=== PATIENT | male | born 1955 | race Caucasian/White ===

== ENCOUNTER 2024-01-29 10:16 | Day surgery (SDC) | payer OTHER, SELFPAY ==
[2024-01-29] VITALS (15 sets, daily range): BP systolic 149–179; BP diastolic 73–96; PULSE 71–107; RESP 16; TEMP 37–37.5; O2SAT 91–97; BMI 29.0
[2024-01-29] MEDS: Lactated Ringers 1,000 ML 15 ML IV (10:53)
[2024-01-29] MEDS: Cefazolin 2 GM in 0.9% Normal Saline (100mL Bag) 100 ML IV (11:27)
[2024-01-29] MEDS: Lidocaine 1%/Epi 1:200 (30ml) 30 ML AMPUL (12:40)
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
[2024-01-29] MEDS: Gabapentin 300 MG Capsule PO (16:10)
[2024-01-29] MEDS: oxyCODONE 5 MG Tablet PO (17:23)
[2024-01-29] MEDS: Acetaminophen 325 MG Tablet PO (17:23)
== END 2024-01-29 18:25 | disposition home or self-care (01) ==
LOC: SDC 10:19 → AC 10:20
PROVIDERS: PCP Internal Medicine; Referring Provider Student in an Organized Health Care Education/Training Program; Visit Provider Student in an Organized Health Care Education/Training Program
PROC: (CPT 27380; principal; 2024-01-29 11:30)
DX: S76.112D Strain of left quadriceps muscle, fascia and tendon, subsequent encounter (principal); I48.91 Unspecified atrial fibrillation; Z79.01 Long term (current) use of anticoagulants; E78.00 Pure hypercholesterolemia, unspecified; I10 Essential (primary) hypertension; G47.30 Sleep apnea, unspecified; M25.562 Pain in left knee; V98.8XXD Other specified transport accidents, subsequent encounter
CPT/HCPCS: 27380; 01320; J7120; J2405

== ENCOUNTER 2024-04-10 17:43 | Emergency (ER) | payer OTHER, SELFPAY ==
[2024-04-10 17:44] VITALS: BP 151/78; PULSE 78; RESP 16; TEMP 36; O2SAT 97; BMI 30.8
--- NOTE | 2024-04-10 18:20 | CT_ITS ---
INDICATION: Hematuria EXAMINATION: CT Abdomen And Pelvis W/O Contrast Injection TECHNIQUE: Helically acquired images were obtained of the abdomen and pelvis without the use of IV contrast. A radiation dose optimization technique was used for this scan. Oral contrast: None. COMPARISON: None FINDINGS: Evaluation of the solid organs and vascular structures is limited without intravenous contrast. Visualized lung bases: Unremarkable Liver: Unremarkable Gallbladder: Unremarkable Spleen: Unremarkable Pancreas: Unremarkable Adrenal Glands: Unremarkable Kidneys: There is an obstructing 6 mm stone in the right ureteropelvic junction with minimal right hydronephrosis. There are several other smaller nonobstructing stones in the right kidney. Vasculature: Mild scattered aortoiliac atherosclerotic calcifications. GI Tract: Unremarkable Lymphadenopathy: None Peritoneum: No ascites. Bladder: Unremarkable Reproductive organs: The prostate is mildly enlarged. Bones/Soft tissues: There are diffuse degenerative changes of the spine. Hardware in the right proximal femur. CT/Abdomen/Pelvis without Cont IMPRESSION: Obstructing 6 mm stone in the right ureteropelvic junction with minimal right hydronephrosis. There are several other smaller nonobstructing stones in the right kidney. Mild prostatomegaly. Correlate with PSA levels. Electronically Signed: Danish Blunt MD at 19:34 EDT ,
[2024-04-10 18:36] LABS: Mucous, Urine 0 SEEN /hpf (<or=2+); Squamous Epithelial Cells - UA 0 SEEN /hpf (0-5)
[2024-04-10 18:39] LABS: Color, Urine Brown (Yellow); Glucose, Dipstick Normal (Normal); Ketone-Dipstick 5 mg/dl (Negative); Leukocyte Esterase-Dipstick 25 /ul (Negative); Nitrite-Dipstick Negative (Negative); Occult Blood-Urine 250 /ul (Negative); Protein-Dipstick 500 mg/dl (Negative); Urine Bilirubin Dipstick Negative (Negative); Urine Clarity Turbid (Clear); Urine Urobilinogen Normal (Normal); Urine pH 6.5 (5.0 - 8.0)
[2024-04-10 18:39] LABS: Absolute Lymphocyte Count 1.31 X10^3/uL (0.83-4.51); Absolute Neutrophil Count 4.4 X10^3/uL (2.0-7.7); Basophil# 0.01 X10^3/uL; Basophil% 0.1 % (0-1); Eosinophil# 0.16 X10^3/uL; Eosinophils% 2.4 % (0-5); Hemoglobin 13.3 g/dL (13.0-16.5); Lymphocyte # 1.31 X10^3/ul (0.83-4.51); Lymphocyte % 19.5 % (19-41); Mean Corp Hgb Conc 34.1 g/dL (32-36); Mean Corpuscular Hgb 31.7 pg (27.0-32.0); Mean Corpuscular Volume 92.9 fL (80-94); Monocyte# 0.86 X10^3/uL; Monocyte% 12.8 % (0-10); NRBC Flagged by Analyzer 0 % (0-5); Neutrophil # 4.37 X10^3/uL (2.7-7.7); Neutrophil % 64.9 % (47-70); Platelet Count 185 K/mm3 (150-450); RBC Distribution Width CV 12.3 % (11.6-14.6); RBC Distribution Width SD 41.9 fl (35.1-43.9); White Blood Count 6.7 K/mm3 (4.4-11.0)
[2024-04-10 18:52] LABS: International Normalized Ratio 1.1; Prothrombin Time (Protime)PT. 13.9 SECONDS (11.7-14.9)
[2024-04-10 18:53] LABS: Partial Thromboplast Time 26.2 Seconds (24.1-36.2)
[2024-04-10 18:54] LABS: Bacteria 2+ /hpf (None Seen); Red Blood Cells-Urine 50-100 SEEN /hpf (0-5); White Blood Cells 10-25 SEEN /hpf (0-5)
[2024-04-10] MEDS: 0.9% Normal Saline (1000mL) 1,000 ML 999 ML IV (18:54)
[2024-04-10 19:05] LABS: AST(SGOT) 17 U/L (15-37); Alanine Aminotransfer ALT/SGPT 36 U/L (16-61); Albumin, Serum 3.5 g/dL (3.2-5.0); Alkaline Phosphatase 95 U/L (45-117); Anion Gap 4 (5-15); BUN 18 mg/dL (7-18); BUN/Creat Ratio 18.9 RATIO (10-20); Bilirubin, Direct 0.12 mg/dL (0.00-0.30); Calcium,Total 8.8 mg/dL (8.5-10.1); Chloride 109 mmol/L (98-107); Creatinine, Serum 0.95 mg/dL (0.70-1.30); EST Glomerular Filtration Rate 83 mL/min (>60); Est Glom Filt Rate - Afr Amer 101 mL/min (>60); Globulin 3.7 g/dL (2.2-4.2); Glucose 121 mg/dL (74-106); Potassium 3.7 mmol/L (3.5-5.1); Protein, Total 7.2 g/dL (6.4-8.2); Sodium Level 142 mmol/L (136-145)
--- NOTE | 2024-04-10 20:20 | EDS_ITS ---
HPI History of Present Illness Chief Complaint: Complaint Informant: patient and spouse/S.O. Narrative Narrative: Patient is 68-year-old male with past medical history of paroxysmal atrial fibrillation as well as hypertension currently on Eliquis. He states that over the last 24 hours he has noticed that his urine has looked like blood. He states there has been no dysuria no trauma he denies any abdominal pain or flank pain associated with this. He states he has no history of liver disease. However as this has been an acute change he presents for evaluation [facility] Medical History (Updated 04/13/24 @ 23:[address] Reese Silverman, DO) Alcohol use CPAP (continuous positive airway pressure) dependence Non-smoker Shortness of breath on exertion History of pain when walking History of edema History of echocardiogram History of stress test Hypertension Cardiology follow-up encounter Fractured sternum Hx of developmental dysplasia of the hip History of irregular heartbeat History of atrial fibrillation Home Medications ?Medication ?Instructions ?Recorded ?Last Taken ?Type apixaban 5 mg tablet (Eliquis) 5 mg PO BID 01/23/24 Unknown History aspirin 81 mg tablet,delayed 81 mg PO DAILY 01/23/24 Unknown History release atorvastatin 40 mg tablet 40 mg PO QHS 01/23/24 Unknown History losartan 50 mg tablet 50 mg PO QHS 01/23/24 Unknown History metoprolol succinate 25 mg 12.5 mg PO QHS 01/23/24 Unknown History tablet,extended release 24 hr cephalexin 500 mg capsule 500 mg PO TID 7 days #21 caps 04/10/24 Unknown Rx tamsulosin 0.4 mg capsule (Flomax) 0.4 mg PO DAILY 14 days #14 caps 04/10/24 Unknown Rx Allergy/AdvReac Type Severity Reaction Status Date / Time No Known Allergies Allergy Verified 01/23/24 13:52 Surgical History (Updated 01/23/24 @ 14:06 by Rhonda Coulter) History of tonsillectomy History of cardiac catheterization History of cardiac radiofrequency ablation Social History Smoking Status: Never smoker ROS ROS ED Constitutional Constitutional ED: Denies chills or fever(s) ENT ENT ED: Denies sore throat Cardiovascular Cardiovascular: Denies chest pain Respiratory/Chest Respiratory/Chest: Denies cough or dyspnea Gastrointestinal Gastrointestinal: Denies abdominal pain, diarrhea, nausea or vomiting Genitourinary Genitourinary ED: Reports hematuria; Denies dysuria or urinary frequency Musculoskeletal Musculoskeletal: Denies back pain or myalgias Integumentary Denies rash Neurologic Neurologic: Denies headache(s) Hematologic/Lymphatic Hematologic/Lymphatic: Reports easy bleeding and easy bruising EXAM Physical Exam Const Vital Signs: 04/10/24 17:44 Temperature 96.8 F L Temperature Source Temporal Pulse Rate 78 Respiratory Rate 16 Blood Pressure 151/78 H Blood Pressure Mean 102 Pulse Ox 97 Oxygen Delivery Method Room Air Positive well nourished, well developed and obese General Appearance ED: well developed; Negative for pallor Nutritional Appearance: obese HEENT Reports moist mucous membranes Eyes PERRL and EOMs intact bilaterally General Eye ED: Negative for pale conjunctiva or scleral icterus Neck supple Resp normal respiratory effort and clear to auscultation bilaterally Cardio regular rate and regular rhythm GI normal to inspection, nondistended, normoactive bowel sounds, non-tender, non- distended and no masses Auscultation: normoactive bowel sounds Palpation: soft Back/Spine no CVA tenderness Extremity normal to inspection Neuro oriented x3, CN's II-XII intact bilaterally and no sensory deficits noted Sensorium / Orientation: alert Motor Exam: strength 5/5 throughout Psych mental status grossly normal Skin no rashes or lesions noted General Skin Exam: Negative for jaundice or pallor MDM MDM MDM Narrative Medical decision making narrative: Patient arrived to ER mildly hypertensive otherwise with stable vitals. He denied dysuria or abdominal pain or flank pain but reported that his urine was dark/bloody in color. There is concern for spontaneous bleed secondary to Eliquis versus bladder cancer or mass versus kidney stone versus pyelonephritis versus UTI versus liver dysfunction. Secondary to his basic labs were obtained and a noncontrast CT was ordered. Labs revealed no signs of acute kidney injury or acute blood loss anemia and there is no derangement to his platelets or bleeding times. Liver enzymes were also normal. CT scan confirmed a kidney stone which would correlate with his hematuria. However at this time he does not have signs of acute kidney injury or urosepsis nor does he have acute blood loss anemia so there is no need for inpatient treatment and he can follow-up with urology on an outpatient basis History & Record Review Discussion w/independent historian: Patient and Significant other Lab Data Attestation: I reviewed the patient's lab results. Labs: Laboratory Results - last 24 hr 04/10/24 04/10/24 18:27 18:30 WBC 6.7 RBC 4.20 L Hgb 13.3 Hct 39.0 L MCV 92.9 MCH 31.7 MCHC 34.1 RDW Std Deviation 41.9 RDW Coeff of Javad 12.3 Plt Count 185 MPV 9.0 Immature Gran % (Auto) 0.300 Neut % (Auto) 64.9 Lymph % (Auto) 19.5 [place] % (Auto) 12.8 H Eos % (Auto) 2.4 Baso % (Auto) 0.1 Absolute Neuts (auto) 4.4 Absolute Lymphs (auto) 1.31 Nucleated RBC % 0 PT 13.9 INR 1.1 APTT 26.2 Sodium 142 Potassium 3.7 Chloride 109 H Carbon Dioxide 29.0 Anion Gap 4 L BUN 18 Creatinine 0.95 Estim Creat Clear Calc 92.40 Est GFR (MDRD) Af Amer 101 Est GFR (MDRD) Non-Af 83 BUN/Creatinine Ratio 18.9 Glucose 121 H Calcium 8.8 Total Bilirubin 0.40 Direct Bilirubin 0.12 AST 17 ALT 36 Alkaline Phosphatase 95 Total Protein 7.2 Albumin 3.5 Globulin 3.7 Urine Color Brown Urine Clarity Turbid Urine pH 6.5 Ur Specific [place] 1.020 Urine Protein 500 H Urine Glucose (UA) Normal Urine Ketones 5 H Urine Occult Blood 250 H Urine Nitrite Negative Urine Bilirubin Negative Urine Urobilinogen Normal Ur Leukocyte Esterase 25 H Urine RBC 50-100 SEEN Urine WBC 10-25 SEEN Ur Squamous Epith Cells 0 SEEN Urine Bacteria 2+ Urine Mucus 0 SEEN Radiography Diagnostic Testing: Clinical Impression(s) from Imaging Studies Abdomen/Pelvis CT 04/10/24 18:20 IMPRESSION: Obstructing 6 mm stone in the right ureteropelvic junction with minimal right hydronephrosis. There are several other smaller nonobstructing stones in the right kidney. Mild prostatomegaly. Correlate with PSA levels. 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, Paroxysmal atrial fibrillation, Hypertension Instructions: ED Hematuria, ED Kidney Stone No Sx Prescriptions: New cephalexin 500 mg capsule 500 mg PO TID 7 Days Qty: 21 0RF tamsulosin [Flomax] 0.4 mg capsule 0.4 mg PO DAILY 14 Days Qty: 14 0RF No Action losartan 50 mg tablet 50 mg PO QHS atorvastatin 40 mg tablet 40 mg PO QHS Eliquis 5 mg tablet 5 mg PO BID metoprolol succinate 25 mg tablet extended release 24 hr 12.5 mg PO QHS aspirin 81 mg tablet,delayed release (DR/EC) 81 mg PO DAILY Primary Care Provider: Orly Cardenas Referrals: Orly Cardenas MD [Primary Care Provider] - Miguel Garcia MD [Med Staff - Active Staff] - Activity Restrictions/Additional Instructions: Your workup today showed the blood in your urine is from a kidney stone. Follow-up with urology to discuss need for potential stent placement or further treatment options regarding removal of the stone. If you develop a fever over 100.4 or intractable pain please return to the ER for repeat evaluation Print Language: Swiss Disposition Disposition: Home, Self Care Discharge Date/Time: 04/10/24 20:55
[2024-04-10] MEDS: Cephalexin 250 MG Capsule 500 MG PO (20:34)
[2024-04-10 20:54] VITALS: BP 128/76; PULSE 75; RESP 18; TEMP 36.8; O2SAT 96
== END 2024-04-10 20:55 | disposition home or self-care (01) ==
PROVIDERS: Emergency Provider Emergency Medicine; PCP Internal Medicine; Visit Provider Emergency Medicine
DX: N13.2 Hydronephrosis with renal and ureteral calculous obstruction (principal); I48.0 Paroxysmal atrial fibrillation; R31.9 Hematuria, unspecified; I10 Essential (primary) hypertension; Z79.01 Long term (current) use of anticoagulants; Z79.82 Long term (current) use of aspirin; Z79.899 Other long term (current) drug therapy
CPT/HCPCS: 74176; 80048; 80076; 81001; 85025; 85610; 85730; 87086; 99283; J7030

== ENCOUNTER → 2024-04-22 | Outpatient (CLI) | payer OTHER, SELFPAY ==
[2024-04-22 12:18] LABS: Hematocrit 39.2 % (40-54); Hemoglobin 12.9 g/dL (13.0-16.5); Mean Corp Hgb Conc 32.9 g/dL (32-36); Mean Corpuscular Hgb 30.8 pg (27.0-32.0); Mean Corpuscular Volume 93.6 fL (80-94); Mean Platelet Vol. 9.1 fl (6.2-12.0); Platelet Count 223 K/mm3 (150-450); RBC Distribution Width CV 12.5 % (11.6-14.6); RBC Distribution Width SD 42.8 fl (35.1-43.9); Red Blood Count 4.19 M/mm3 (4.6-6.2)
[2024-04-22 13:00] LABS: Anion Gap 7 (5-15); BUN 19 mg/dL (7-18); BUN/Creat Ratio 13.3 RATIO (10-20); Calcium,Total 9.2 mg/dL (8.5-10.1); Chloride 105 mmol/L (98-107); Creatinine, Serum 1.43 mg/dL (0.70-1.30); EST Glomerular Filtration Rate 52 mL/min (>60); Est Glom Filt Rate - Afr Amer 63 mL/min (>60); Glucose 107 mg/dL (74-106); Potassium 4.1 mmol/L (3.5-5.1); Sodium Level 137 mmol/L (136-145)
== END | disposition home or self-care (01) ==
PROVIDERS: PCP Internal Medicine; Referring Provider Urology; Visit Provider Urology
DX: Z01.812 Encounter for preprocedural laboratory examination (principal)
CPT/HCPCS: 36415; 80048; 85027

== ENCOUNTER → 2024-05-03 | Outpatient (CLI) | payer OTHER, SELFPAY ==
--- NOTE | 2024-04-30 | CALC_PTH ---
PATIENT: RUDDY RICH [facility] U#:[id number] AGE/SX: 68/M ROOM: RE05/03/[address]: Dr. Miguel Garcia MD : 1955 BED: DIS: 05/03/2024 SPEC #: [id number] RECD: 05/03/24 14:59 STATUS: MANUEL BELTRAN #: [id number] YVROSE: 04/30/24 00:[address]: Miguel Garcia DEPT: SURGICAL PATHOLOGY RECD BY: Wilian Torres ENTERED: 05/04/24 09:53 SP TYPE: Calculi OTHR DR: Dr. Orly Cardenas MD [facility] Tissues: CALCULI Procedures: Surgery Specimen Level I HEADER OPERATION: Right ureteroscopy, balloon dilation, laser stone PRE-OP DIAGNOSIS: Calculus of ureter TISSUE SUBMITTED: Renal calculi GROSS DIAGNOSIS A fragment of stone, clinically renal calculus (gross only). See comment. [place]/ 05/04/2024 COMMENT If chemical analysis is requested on this specimen, please notify the laboratory. GROSS DESCRIPTION Received without fixative labeled with the patient's name and designated renal calculi. The specimen consists of a minute fragment of black stone measuring 0.1 x 0.1 x 0.1 cm. The entire specimen is saved if stone analysis is requested. 05/04/2024 CPT: 13444
== END | disposition home or self-care (01) ==
LOC: LABSPEC 16:19
PROVIDERS: PCP Internal Medicine; Referring Provider Urology; Visit Provider Urology
DX: N20.1 Calculus of ureter (principal)
CPT/HCPCS: 82360; 88300

== ENCOUNTER → 2024-12-17 | Outpatient (CLI) | payer MEDICARE, SELFPAY ==
[2024-12-17 12:43] LABS: Absolute Lymphocyte Count 1.84 X10^3/uL (0.83-4.51); Absolute Neutrophil Count 6.1 X10^3/uL (2.0-7.7); Basophil# 0.04 X10^3/uL; Basophil% 0.4 % (0-1); Eosinophil# 0.16 X10^3/uL; Eosinophils% 1.8 % (0-5); Hematocrit 44.6 % (40-54); Hemoglobin 14.6 g/dL (13.0-16.5); Lymphocyte # 1.84 X10^3/ul (0.83-4.51); Lymphocyte % 20.5 % (19-41); Mean Corp Hgb Conc 32.7 g/dL (32-36); Mean Corpuscular Hgb 32.2 pg (27.0-32.0); Mean Corpuscular Volume 98.2 fL (80-94); Mean Platelet Vol. 9.7 fl (6.2-12.0); Monocyte# 0.86 X10^3/uL; Monocyte% 9.6 % (0-10); NRBC Flagged by Analyzer 0 % (0-5); Neutrophil # 6.05 X10^3/uL (2.7-7.7); Neutrophil % 67.3 % (47-70); Platelet Count 208 K/mm3 (150-450); RBC Distribution Width CV 12.5 % (11.6-14.6); RBC Distribution Width SD 45.2 fl (35.1-43.9); Red Blood Count 4.54 M/mm3 (4.6-6.2)
[2024-12-17 13:24] LABS: ALB/GLOB Ratio 1.2 RATIO (0.9-2.4); AST(SGOT) 15 U/L (<=37); Alanine Aminotransfer ALT/SGPT 24 U/L (<=46); Albumin, Serum 4.3 g/dL (3.4-4.8); Alkaline Phosphatase 71 U/L (40-129); Anion Gap 12 (5-15); BUN 26 mg/dL (4-19); BUN/Creat Ratio 25.5 RATIO (10-20); Calcium,Total 9.6 mg/dL (7.6-11.0); Carbon Dioxide 24.4 mmol/L (21.0-32.0); Chloride 104 mmol/L (98-108); Creatinine, Serum 1.02 mg/dL (0.70-1.20); EST Glomerular Filtration Rate 80 (>60); Globulin 3.5 g/dL (2.2-4.2); Glucose 98 mg/dL (70-99); Potassium 4.5 mmol/L (3.3-5.1); Protein, Total 7.7 g/dL (5.9-8.4); Sodium Level 141 mmol/L (133-145); Total Bilirubin 0.56 mg/dL (0.00-1.30)
== END | disposition home or self-care (01) ==
LOC: MTLAB 11:00
PROVIDERS: PCP Internal Medicine; Referring Provider Student in an Organized Health Care Education/Training Program; Visit Provider Student in an Organized Health Care Education/Training Program
DX: Z01.818 Encounter for other preprocedural examination (principal)
CPT/HCPCS: 36415; 80053; 85025

== ENCOUNTER 2025-05-30 05:20 | Day surgery (SDC) | payer MEDICARE, SELFPAY ==
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
[2025-05-30] VITALS (11 sets, daily range): BP systolic 123–139; BP diastolic 55–81; PULSE 67–80; RESP 16–18; TEMP 36.1–36.7; O2SAT 98–100; BMI 30.7
--- OUTSIDE RECORDS SUMMARY | 2025-05-30 05:24 | XMS RPT_ITS | CCD ---
Author Organization [facility] Care Team Providers Care Informatics Nurse Name Role Phone RONALD HURTADO, DR RENDON Primary Care Physician Mello Rounding Nurse, Terry Unavailable Adrienne JOHNSON MD, MIKY Consulting Unavailable DALIA HORVATH MD Referring Unavailvon CARDENAS MD, DR RENDON Primary Care Unavailable TRACI HURTADO, TAYE Attending Unavailable RONALD HURTADO, DR RENDON Primary Care Unavailable SREEDHAR MARQUEZ MD Consulting Unavailvon SINGH MD, FREDA Admitting Unavailable FREDA SINGH MD Attending Unavailable YAMINI HURTADO, FREDA Consulting Unavailable RONALD HURTADO, DR RENDON Primary Care Unavailable YAMINI HURTADO, FREDA Attending Unavailable STEVE RAYA Referring Unavailable RONALD HURTADO, DR RENDON Primary Care Unavailable FREDA SINGH MD Attending Unavailable RONALD HURTADO, DR RENDON Primary Care Unavailable DIANNE HUGHES Admitting Unavailable DIANNE HUGHES Attending Bubba RANDLE MD, DR ALEX Keys Consulting Unavail able Ronald HURTADO, Dr. Rendon Primary Care Provider Dr. Robin Barrett DO Attending Provider Dr. Robin Barrett DO Referring Provider STEVE ROMERO Referring Unavail able FREDA SINGH MD Admitting Unavailable FREDA SINGH MD Attending Unavailable RONALD HURTADO, DR RENDON Primary Care Unavailable FREDA SINGH MD Attending Unavailable RONALD HURTADO, DR RENDON Primary Care Unavailable ANASTASIA RICHMOND DO Consulting Unavailable FREDA SINGH MD Admitting Unavailable FREDA SINGH MD Attending Unavailable RONALD HURTADO, DR RENDON Primary Care Unavailable STEVE ROMERO Attending Unavail able RONALD HURTADO, DR RENDON Primary Care Unavailable STEVE RAYA Primary Care Unavailable STEVE RAYA Attending Unavailable STEVE RAYA Admitting Unavailable JUSTICE CARDENAS MD Consulting Unavailable ROBIN BARRETT DO Primary Care Unavailable ROBIN BARRETT DO Attending Unavailable ROBIN BARRETT DO Admitting Unavailable PROVIDER, UNKNOWN Consulting Unavailable PROVIDER, UNKNOWN Consulting Unavailable PROVIDER, UNKNOWN Consulting Unavailable ROBIN BARRETT DO Primary Care Unavailable ROBIN BARRETT DO Attending Unavailable ROBIN BARRETT DO Admitting Unavailable JUSTICE CARDENAS MD Consulting Unavailable DENVER, JOHN PAC Admitting Unavailable DENVER, JOHN PAC Primary Care Unavailable DENVER, JOHN PAC Attending Unavailable PROVIDER, UNKNOWN Consulting Unavailable PROVIDER, UNKNOWN Consulting Unavailable PROVIDER, UNKNOWN Consulting Unavailable CRYSTAL ANGLIN Admitting Unavailable CRYSTAL ANGLIN Primary Care Unavailable CRYSTAL ANGLIN Attending Unavailable STEVE RAYA Attending Unavailable STEVE RAYA Admitting Unavailable STEVE RAYA Primary Care Unavailable ROBIN BARRETT DO Attending Unavailable ROBIN BARRETT DO Admitting Unavailable ROBIN BARRETT DO Primary Care Unavailable ELIDA CELESTE DR Admitting Unavailable ELIDA CELESTE DR Primary Care Unavailable ELIDA CELESTE DR Attending Unavailable JUSTICE CARDENAS MD Consulting Unavailable PROVIDER, UNKNOWN Consulting Unavailable PROVIDER, UNKNOWN Consulting Unavailable PROVIDER, UNKNOWN Consulting Unavailable CHU INFANTE%C Attending Unavailable CHU INFANTE PA%C Admitting Unavailable CHU INFANTE%C Primary Care Unavailable JUSTICE CARDENAS MD Admitting Unavailable JUSTICE CARDENAS MD Primary Care Unavailable JUSTICE CARDENAS MD Consulting Unavailable JUSTICE CARDENAS MD Attending Unavailable PROVIDER, UNKNOWN Consulting Unavailable PROVIDER, UNKNOWN Consulting Unavailable PROVIDER, UNKNOWN Consulting Unavailable KANCHERLA Admitting Unavailable KANCHERELROY Primary Care Unavailable DRAGAN Attending Unavailable DRAGAN Referring Unavailable ROBIN BARRETT DO Attending Unavailable ROBIN BARRETT DO Admitting Unavailable ROBIN BARRETT DO Primary Care Unavailable Robin Barrett Referring Unavailable Justice Cardenas Primary Care Unavailable Robin Barrett Attending Unavailable Zeenat Lucas Primary Care Unavailable Robin Barrett Attending Unavailable Robin Barrett Referring Unavailable Medications Current Medications Medication Drug Class(es) Dates Sig (Normalized) Sig (Original) 8 hr acetaminophen 650 mg extended release oral tablet (5 sources) Start: 05-11-2024 Tylenol 8 HR Arthritis Pain 650 mg oral tablet, extended release Dose : 1,300 mg = 2 tab(s), Oral, q8h, PRN as needed for pain, 0 Refill(s) Start Date: 05/11/24 Status: Ordered Repeat number: 1 apixaban 5 mg oral tablet (8 sources) Factor Xa Inhibitor Start: 02-14-2025 Eliquis 5 mg oral tablet Dose : 5 mg = 1 tab(s), Oral, q12h, # 60 tab(s), 0 Refill(s), other reason (Rx), 99.4 Start Date: 02/14/25 Status: Ordered Quantity: 60.0 Unit: tab(s) Repeat number: 1 Indications: Unspecified atrial fibrillation; Start: 05-02-2023 Eliquis 5 mg o ral tablet Dose : 5 mg = 1 tab(s), Oral, BID, # 180 tab(s), 3 Refill(s), Pharmacy: [facility], 180.3, cm, 05/18/24 5:59:00 EDT, Height, 99.8, kg, 05/18/24 5:59:00 EDT, Dosing Weight Start Date: 06/09/24 Status: Ordered aspirin 81 mg delayed release oral tablet (8 sources) Platelet Aggregation Inhibitor, Nonsteroidal Anti-inflammatory Drug Start: 01-20-2025 aspirin 81 mg ora l delayed release tablet Dose : 81 mg = 1 tab(s), Oral, qHS, 0 Refill(s) Start Date: 01/20/25 Status: Ordered Repeat number: 1 Start: 11-26-2023 take 1 tablet by maura once daily Aspirin 81 mg tablet,delayed release (DR/EC) Active 81 mg PO DAILY January 23, 2024 12:00am Start: 10-06-2023 aspirin 81 mg oral delayed release tablet Dose : 81 mg = 1 tab(s), Oral, Daily, 0 Refill(s) Start Date: 10/06/23 Status: Ordered atorvastatin 40 mg oral tablet (9 sources) HMG-CoA Reductase Inhibitor Start: 08-26-2023 atorvastatin 40 mg oral tablet Dose : 40 mg = 1 tab(s), Oral, qHS, # 90 tab(s), 3 Refill(s), Pharmacy: [facility], 180.3, cm, 05/18/24 5:59:00 EDT, Height, kg, 05/18/24 5:59:00 EDT, Dosing Weight Start Date: 06/07/24 Status: Ordered Quantity: 90.0 Unit: tab(s) Repeat number: 4 cephalexin 500 mg oral capsule (1 source) Cephalosporin Antibacterial Start: 04-10-2024 take 1 capsule by mouth three times daily Cephalexin 500 mg capsule Active 500 mg PO THREE TIMES A DAY 28 03April 10, 2024 12:00am losartan potassium 50 mg oral tablet (9 sources) Angiotensin 2 Receptor Chela Start: 10-07-2023 take 1 tablet by mouth once daily at bedtime losartan 50 mg oral tablet 1 tab(s), Oral, qHS, # 90 tab(s), 2 Refill(s), Pharmacy: [facility], 182.9, cm, 07/08/24 13:09:00 EDT, Height, kg, 07/08/24 13:09:00 EDT, Dosing Weight Start Date: 10/08/24 Status: Ordered Quantity: 90.0 Unit: tab(s) Repeat number: 3 Start: 07-29-2022 take 1 tablet by maura th once daily losartan 50 mg oral tablet 1 tab(s), Oral, qDay, # 90 tab(s), 3 Refill(s), Pharmacy: [facility], 182, cm, 03/01/22 15:19:00 EDT, Height, kg, 03/01/22 15:19:00 EDT, Dosing Weight Start Date: 07/29/22 Status: Ordered 24 hr metoprolol succinate 25 mg extended release oral tablet (12 sources) beta-Adrenergic Chela Start: 01-26-2025 metopr olol succinate 25 mg oral TABLET extended release Dose : 25 mg = 1 tab(s), Oral, qDay, Do not crush or chew (controlled release), # 90 tab(s), 2 Refill(s), Pharmacy: [facility], 177.8, cm, 01/20/25 10:19:00 EDT, Height, kg, 01/20/25 10:19:00 EDT, Dosing Weight Start Date: 01/26/25 Status: Ordered Quantity: 90.0 Unit: tab(s) Repeat number: 3 Start: 05-18-2024 End: 05-18-2024 metoprolol succinate 25 mg o ral TABLET extended release Start: 05/18/24 10:00:00 PM EDT, Dose = 12.5 mg, = 0.5 tab(s), Oral, 05/18/24 7:25:00 EDT Start Date: 05/18/24 Stop Date: 05/18/24 Status: Completed Start: 01-23-2024 take 2 tablets by cox monett every twenty-four hours at bedtime Metoprolol Succinate 25 mg tablet extended release 24 hr Active 12.5 mg PO AT BEDTIME January 23, 2024 12:00am Start: 01-14-2024 End: 01-15-2024 metoprolol succinate 25 mg o ral TABLET extended release Start: 01/15/24 8:00:00 AM EDT, Dose = 12.5 mg, = 0.5 tab(s), Oral, 0, 01/14/24 9:49:00 EDT Start Date: 01/15/24 Stop Date: 01/15/24 Status: Completed Start: 12-18-2023 metoprolol suc cinate 25 mg oral TABLET extended release Dose : 12.5 mg = 0.5 tab(s), Oral, qHS, Do not crush or chew (controlled release), # 15 tab(s), 5 Refill(s), Pharmacy: [facility], 182.9, cm, 11/14/23 17:44:00 EST, Height, kg, 11/14/23 17:44:00 EST, Dosing Weight Start Date: 12/18/23 Status: Ordered Start: 11-15-2023 End: 11-15-2023 metoprolol succinate 25 mg o ral TABLET extended release Start: 11/15/23 8:00:00 AM EST, Dose = 12.5 mg, = 0.5 tab(s), Oral, 0, 11/14/23 11:40:00 EST Start Date: 11/15/23 Stop Date: 11/15/23 Status: Completed Start: 07-14-2023 metoprolol suc cinate 25 mg oral TABLET extended release Dose : 12.5 mg = 0.5 tab(s), Oral, qDay, Do not crush or chew (controlled release), # 45 tab(s), 1 Refill(s), Pharmacy: [facility], 182, cm, 02/28/23 14:27:00 EDT, Height, kg, 02/28/23 14:27:00 EDT, Dosing Weight Start Date: 07/14/23 Status: Ordered montelukast 10 mg oral tablet (2 sources) Leukotriene Receptor Antagonist Start: 01-20-2025 montelukast 10 mg oral tablet Dose : 10 mg = 1 tab(s), Oral, qHS, 0 Refill(s) Start Date: 01/20/25 Status: Ordered Repeat number: 1 tamsulosin hydrochloride 0.4 mg oral capsule (1 source) alpha-Adrenergic Chela Start: 04-10-2024 take 1 capsule by mouth once daily Tamsulosin (Flomax) 0.4 mg capsule Active 0.4 mg PO DAILY April 10, 2024 12:00am Vitamin C 1000 mg oral tablet (3 sources) Start: 05-11-2024 Vitamin C 1000 mg oral tablet Dose : 1,000 mg = 1 tab(s), Oral, qAM, # 30 tab(s), 0 Refill(s) Start Date: 05/11/24 Status: Ordered Vitamin C 500 mg oral tablet (1 source) Start: 01-13-2024 Vitamin C 500 mg oral tablet Dose : 500 mg = 1 tab(s), Oral, qDay Start Date: 01/13/24 Status: Ordered Vitamin D3 25 mcg (1000 intl units) oral capsule (4 sources) Start: 01-13-2024 Vitamin D3 25 mcg (1000 intl units) oral capsule Dose : 25 mcg = 1 cap(s), Oral, qAM Start Date: 01/13/24 Status: Ordered Start: 01-13-2024 Vitamin D3 25 mcg (1000 intl units) oral capsule Dose : 25 mcg = 1 cap(s), Oral, qDay Start Date: 01/13/24 Status: Ordered Completed/Discontinued Medications Medication Drug Class(es) Dates Sig (Normalized) Sig (Original) oxyCODONE hydrochloride 5 mg oral tablet (2 sources) Opioid Agonist Start: 01-29-2024 End: 04-10-2024 take 1-2 tablets by mouth every six hours as needed for pain Oxycodone 5 mg tablet Discontinued 0 .ROUTE .COMPLEX as needed for pain 42 7 January 29, 2024 April 10, 2024 6:55pm 1-2 Tablet by mouth every 6 hours as needed for pain Start: 01-15-2024 End: 01-18-2024 oxyCODONE 5 mg oral tablet ( IMMEDIATE release ) Dose : 5 mg = 1 tab(s), Oral, q6h, PRN for pain, X 3 day(s), # 12 tab(s), 0 Refill(s), 01/18/24 8:44:00 AM EDT, Pharmacy: [facility], Acute pain, 182.9, cm, 01/13/24 21:21:00 EDT, Height, 100, kg, 01/13/24 21:21:00 EDT, Dosing Weight Start Date: 01/15/24 Stop Date: 01/18/24 Status: Ordered Problems Active Problems Problem Classification Problem Date Documented Date Episodic/Chronic Calculus of urinary tract (1 source) Kidney stone; Translations: [Calculus of kidney] 04-18-2024 Episodic Cardiac dysrhythmias (18 sources) Atrial fibrillation; Translations: [Multiple premature ventricular complexes] Onset: 05-15-2024 10-26-2019 Chronic Comment on above: had an ablation 2020 Cardiac dysrhythmias (17 sources) Bradycardia; Translations: [Palpitations] 05-10-2021 Episodic Coagulation and hemorrhagic disorders (4 sources) Bleeds easily 05-15-2024 Chronic Disorders of lipid metabolism (3 sources) Dyslipidemia; Translations: [Pure hypercholesterolemia, unspecified] Onset: 12-30-2024 01-05-2025 Chronic Essential hypertension (12 sources) Hypertensive disorder; Translations: [Essential hypertension] Onset: 05-15-2024 06-12-2020 Chronic Fracture of lower limb (1 source) Closed fracture of left patella; Translations: [Unspecified fracture of left patella, initial encounter for closed fracture] Episodic Genitourinary symptoms and ill-defined conditions (1 source) Blood in urine; Translations: [Hematuria, unspecified] 04-18-2024 Episodic Nutritional deficiencies (1 source) Vitamin D deficiency, unspecified; Translations: [Vitamin D deficiency, unspecified] Onset: 12-30-2024 Chronic Osteoarthritis (3 sources) Primary osteoarthritis, left shoulder; Translations: [Primary osteoarthritis, left shoulder] Onset: 04-29-2025 Chronic Other aftercare (1 source) Long-term current use of anticoagulant; Translations: [nursing home (current) use of anticoagulants] 04-18-2024 Episodic Other circulatory disease (1 source) H/O: artificial organ/tissue; Translations: [Presence of other cardiac implants and grafts] Onset: 05-19-2024 Chronic Other fractures (1 source) Closed fracture of sternum; Translations: [Unspecified fracture of sternum, initial encounter for closed fracture] Episodic Other nervous system disorders (1 source) Acute postoperative pain; Translations: [Other acute postprocedural pain] 01-29-2024 Episodic Other non-traumatic joint disorders (3 sources) Ankylosis, left knee; Translations: [Ankylosis, left knee] Onset: 01-03-2025 Chronic Other non-traumatic joint disorders (1 source) Pain in left shoulder; Translations: [Pain in left shoulder] Onset: 04-29-2025 Episodic Other nutritional; endocrine; and metabolic disorders (1 source) Lipoprotein deficiency; Translations: [Lipoprotein deficiency] Onset: 05-24-2025 Chronic Residual codes; unclassified (10 sources) Obstructive sleep apnea syndrome; Translations: [Obstructive sleep apnea (adult) (pediatric)] Onset: 05-15-2024 03-07-2020 Chronic Residual codes; unclassified (1 source) Pain; Translations: [Pain, unspecified] Onset: 01-15-2024 Episodic Sprains and strains (5 sources) Strain of muscle and/or tendon of lower leg; Translations: [Strain of unspecified muscle(s) and tendon(s) at lower leg level, left leg, initial encounter] Onset: 01-03-2025 Episodic Superficial injury; contusion (1 source) Contusion of left shoulder, initial encounter; Translations: [Contusion of left shoulder, initial encounter] Onset: 03-23-2025 Episodic Unclassified (4 sources) Left atrial appendage occlusion device in situ 05-19-2024 Past or Other Problems Problem Classification Problem Date Documented Da te Episodic/Chronic Coagulation and hemorrhagic disorders (1 source) Disorder of hemostatic system; Translations: [Hemorrhagic condition, unspecified] Onset: 05-15-2024 Episodic Results Test Name Value Interpretation Reference Range Facility /[place] 05-05-2025 MR/PAT.[facility] Medical Records Department [address] [place] [address] PAT - Anesthesia 05/05/252004 MR#: [id number] Acct: [id number] Name: RUDDY RICH Rep #: [id number] : [id number] 69 From: Poncho Woodruff MD PCP: Dr. 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 When Was Last Pacemaker Check QUESTION #4 FULL TEXT: You/Your Family Experience fever (hyperthermia) with Anesthesia Last Oral Intake Last Oral intake: Last Oral Intake NPO since Meds taken in AM with sips of water? Meds patient instructed to take am of surgery PONV PONV - liturgical music director: PONV - liturgical music director Female No 05/03/25 09:39 HX of Motion Sickness No 05/03/25 09:39 HX of N/V After Surgery No 05/03/25 09:39 Non-Smoker Yes 05/03/25 09:39 Duration of Surgery greater Yes 05/03/25 09:39 than 60 minutes Number of Risk Factors 2 05/03/25 09:39 PONV Score Moderate Risk 05/03/25 09:39 Height Weight Height Weight: Anesthesia: Height Weight Height 6 ft 04/10/24 17:44 Respiratory Assessment Respiratory Assessment - liturgical music director: Respiratory Tract Infection Hx - liturgical music director Hx Respiratory Tract Infection No 05/03/25 09:39 STOP Sleep Apnea STOP Sleep Apnea - liturgical music director: STOP Sleep Apnea - liturgical music director Hx Hypertension Yes: CONTROLLED WITH MEDS 05/03/25 09:39 Hx Sleep Apnea Yes 05/03/25 09:39 CPAP Yes 05/03/25 09:39 BIPAP No 05/03/25 09:39 Do you snore loudly (louder than talking or can be heard Do you often feel tired/ fatigued/ sleepy during daytime? Has anyone observed you stop breathing during sleep? STOP Results Positive 05/03/25 09:39 QUESTION #5 FULL TEXT : Do you snore loudly (louder than talking or can be heard through closed doors)? 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 Specify any problems Hx of Preganancy in last 3 N/A 05/03/25 09:39 Months Nurse Filling Out Transfusion VCHRISTIN 05/03/25 09:39 Questions: Date: 05/03/25 05/03/25 09:39 Time: 09:40 05/03/25 09:39 Patient unable to answer at this time (ie. confused, unrespo /Reproducti on History /Reproducti ve History - liturgical music director: /Reproducti ve Hx- liturgical music director Hx Now No 05/03/25 09:39 Gestational Age (in weeks): EDC: Hx Hx Para Hx Section SAB No 05/03/25 09:39 [facility] Medical History (Updated 05/03/25 @ 10:06 by Leesa Kraft) Alcohol use CPAP (continuous positive airway pressure) dependence Non-smoker Shortness of breath on exertion History of pain when walking History of edema History of echocardiogram History of stress test Hypertension Cardiology follow-up encounter Fractured sternum Hx of developmental dysplasia of the hip History of irregular heartbeat History of atrial fibrillation Home Medications ???Medication ???Instructions ???Recorded ???Last Taken ???Type aspirin 81 mg tablet,delayed 81 mg PO DAILY 01/23/24 Unknown Hi story release atorvastatin 40 mg tablet 40 mg PO QHS 01/23/24 Unknown Hist ory losartan 50 mg tablet 50 mg PO DAILY 01/23/24 Unknown Hi story Allergy/AdvReac Type Severity Reaction Status Date / Time No Known Allergies Allergy Verified 05/03/25 09:19 Surgical History (Updated 05/03/25 @ 10:06 by Shirlene (more content not included)... Normal [facility] ALBUMIN PLASMAon 04-29-2025 Albumin [Mass/Vol] 3.9 g/dL Normal 3.4 - 5.0 [facility] Comment on above: Performed By: #### 2 [id number] #### [facility],[address] [place] [address] 60974 BMP with eGFRon 04-29-2025 AGE 69 years Normal [facility] Comment on above: Performed By: #### 2 [id number] #### [facility],[address] [place], [place] [id number] Anion gap [Moles/Vol] 11 mmol/L Normal 10 - 20 [facility] Comment on above: Performed By: #### 2 [id number] #### [facility],[address] [place] [address] [id number] BMP with eGFR Normal [facility] Comment on above: Result Comment: BASI C METABOLIC PANEL Performed By: #### 2 [id number] #### [facility],[address] [place] [address] 06742 Calcium [Mass/Vol] 8.8 mg/dL Normal 8.5 - 10.1 [facility] Comment on above: Performed By: #### 2 [id number] #### [facility],[address] [place] [address] 91416 Chloride [Moles/Vol] 101 mmol/L Normal 98 - 107 [facility] Comment on above: Performed By: #### 2 [id number] #### [facility],[address] [place] [address] 06748 CO2 [Moles/Vol] 30.3 mmol/L Normal 21.0 - 32.0 [facility] Comment on above: Performed By: #### 2 73221 #### [facility],[address] [place] [address] Creatinine [Mass/Vol] 1.06 mg/dL Normal 0.70 - 1.30 [facility] Comment on above: Performed By: #### 2 10948 #### [facility],[address] [place], [place] [address] GFR/1.73 sq M.predicted among non-blacks MDRD (S/P/Bld) [Vol rate/Area] mL/min/{1.73_m2} Normal 60 - 999 [facility] Comment on above: Performed By: #### 2 92833 #### [facility],[address] [place] [address] Result Comment: ACCO RDING TO THE NATIONAL KIDNEY DISEASE EDUCATION PROGRAM(NKDE), A NORMAL eGFR IS A VALUE GREATER THAN OR EQUAL TO 60 ML/MIN/1.73 SQ METERS. CHRONIC KIDNEY DISEASE: <60mL/MIN/1.73 SQ METERS KIDNEY FAILURE: <15mL/MIN/1.73 SQ METERS THIS TEST SHOULD ONLY BE USED FOR PATIENTS 18 YEARS OF AGE AND OLDER. Glucose [Mass/Vol] 102 mg/dL Normal 74 - 106 [facility] Comment on above: Performed By: #### 2 98094 #### [facility],[address] [place], [place] [id number] Potassium [Moles/Vol] 4.1 mmol/L Normal 3.5 - 5.1 [facility] Comment on above: Performed By: #### 2 76843 #### [facility],[address] [place] [address] 59320 Sodium [Moles/Vol] 138 mmol/L Normal 136 - 145 [facility] Comment on above: Performed By: #### 2 [id number] #### [place] [id number] Urea nitrogen [Mass/Vol] 14 mg/dL Normal 7 - 18 [facility] Comment on above: Performed By: #### 2 78857 #### [facility],[address] [place] [address] 08470 CBC + DIFFon 04-29-2025 Baso # 0.02 x10EE3/UL Normal 0.00 - 0.10 [facility] Comment on above: Performed By: #### 2 41136 #### [facility],[address] [place], [place] [id number] Basophils/100 WBC (Bld) 0.3 % Normal 0.0 - 2.0 [facility] Comment on above: Performed By: #### 2 84761 #### [facility],[address] [place] [address] CBC + DIFF Normal [facility] Comment on above: Result Comment: CBC- COMPLETE BLOOD COUNT Performed By: #### 2 28619 #### [facility],[address] [place] [address] EO # 0.16 x10EE3/UL Normal 0.00 - 0.50 [facility] Comment on above: Performed By: #### 2 44720 #### [facility],[address] [place] [address] 20108 Eosinophils/100 WBC (Bld) 2.4 % Normal 0.0 - 7.0 [facility] Comment on above: Performed By: #### 2 91240 #### [facility],[address] [place], [place] [phone] Erythrocyte distribution width (RBC) [Ratio] 12.4 % Normal 12.0 - 15.6 [facility] Comment on above: Performed By: #### 2 56097 #### [facility],[address] [place], [place] [phone] Hematocrit (Bld) [Volume fraction] 41.4 % Normal 40.0 - 52.0 [facility] Comment on above: Performed By: #### 2 39423 #### [facility],[address] [place] [address] 84209 Hemoglobin (Bld) [Mass/Vol] 14.6 g/dL Normal 13.0 - 17.5 [facility] Comment on above: Performed By: #### 2 26652 #### [facility],[address] [place] [address] 42668 Lymph # 1.15 x10EE3/UL Normal 0.80 - 2.80 [facility] Comment on above: Performed By: #### 2 59524 #### [facility],[address] [place] [address] 49913 Lymphocytes/100 WBC (Bld) 18.0 % Low 20.0 - 45.0 [facility] Comment on above: Performed By: #### 2 75868 #### [facility],[address] [place] [address] 51547 MANUAL DIFF N/A Normal [facility] Comment on above: Performed By: #### 2 64483 #### [facility],[address] [place] [address] 88565 MCH (RBC) [Entitic mass] 34 pg High 27 - 33 [facility] [facility] Comment on above: Performed By: #### 2 [id number] #### [facility],[address] [place] [address] 39150 MCHC 35 X10 3 Normal 32 - 36 [facility] Comment on above: Performed By: #### 2 57899 #### [facility],[address] [place] [address] 30305 MCV (RBC) [Entitic vol] 96 fL Normal 81 - 98 [facility] Comment on above: Performed By: #### 2 44655 #### [facility],[address] [place] [address] 38298 Bulloch # 0.64 x10EE3/UL Normal 0.20 - 1.00 [facility] Comment on above: Performed By: #### 2 79550 #### [facility],[address] [place] [address] 85879 MONOS % 10.0 % Normal 0.0 - 10.0 [facility] Comment on above: Performed By: #### 2 41000 #### [facility],[address] [place] [address] 75798 Morphology Jaylon (Bld) [Interp] N/A Normal [facility] Comment on above: Performed By: #### 2 22162 #### [facility],[address] [place] [address] 69496 Neut # 4.43 x10EE3/UL Normal 1.50 - 7.10 [facility] Comment on above: Performed By: #### 2 18533 #### [facility],[address] [place] [address] 11416 Neutrophils/100 WBC (Bld) 69.4 % Normal 46.0 - 76.0 [facility] Comment on above: Performed By: #### 2 66337 #### [facility],[address] [place] [address] 85997 PLATELET 233 x10EE3/UL Normal 150 - 450 [facility] Comment on above: Performed By: #### 2 79261 #### [facility],[address] [place] [address] 42941 Platelet mean volume (Bld) [Entitic vol] 7.3 fL Normal 6.4 - 10.5 [facility] Comment on above: Result Comment: AUTO MATED DIFFERENTIAL Performed By: #### 2 03727 #### [facility],[address] [place] [address] 44830 RBC 4.32 x 10EE6/UL Low 4.50 - 6.00 [facility] Comment on above: Performed By: #### 2 54089 #### [facility],[address] [place] [address] 57160 WBC 6.4 x 10EE3/UL Normal 4.5 - 10.8 [facility] Comment on above: Performed By: #### 2 51428 #### [facility],[address] [place] [address] SHOULDER W/O LTon 025 CT SHOULDER W/O LT [address] [address] Patient: RUDDY RICH Phone#: : 1955 Age: 69 Gender: M Pt. Type: Out Account: [id number] Location: [facility] Ordering: DR. ROBIN BARRETT Exam Date: 04/29/2025/9:01 Family Phys: Charge Code: [id number] Physician: Butts Order #: [id number] Dose#: 54.20 mGy PROCEDURE: CT SHOULDER LT WITHOUT CONTRAST COMPARISON: [facility], , SHOULDER LT W/O CONTRAST, 04/18/2025, 13:53. INDICATIONS: Primary osteoarthritis, left shoulder. TECHNIQUE: Multi-planar CT images were created without intravenous contrast. All CT scans at this facility use dose modulation, iterative reconstruction, and/or weight based dosing when appropriate to reduce radiation dose to as low as reasonably achievable. IV CONTRAST: No IV contrast used,0ml TOTAL DOSE: 54.20 CTDIvol(mGy) FINDINGS: BONES: Degenerative changes of the lower cervical spine with anterior osteophytes. Humeral head is normal in contour. There is superior subluxation of the humeral head relative to the glenoid. There is minimal spurring at the inferior glenoid. There is mild spurring at the acromioclavicular joint. Small amount of soft tissue density adjacent to the joint may represent acromioclavicular arthrosis or effusion. SOFT TISSUES: Mild atrophy of the supraspinatus and infraspinatus muscles. EFFUSION: Fullness of the glenohumeral joint concerning for joint effusion. There are few small calcifications inferiorly which may correspond to the loose body seen on comparison exams OTHER: Atrial appendage closure device. Atherosclerotic calcifications of the aorta. CONCLUSION: 1. Superior subluxation of the humeral head relative to the glenoid 2. Degenerative spurring of the inferior glenoid 3. Degenerative changes of the acromioclavicular joint 4. Calcifications adjacent to the inferior glenoid, may represent loose bodies. Dictated by: Collette Antoine MD on 04/29/2025 at 11:47 Approved by: Collette Antoine MD on 04/29/2025 at 11:58 Normal [facility] MAGNESIUMon 04-29-2025 Magnesium [Mass/Vol] 1.6 mg/dL Low 1.8 - 2.4 [facility] Comment on above: Performed By: #### 2 [id number] #### [facility],[address] [place], [place] [id number] MR SHOULDER W/O LTon 025 MR SHOULDER W/O LT [place] [id number] Patient: RUDDY RICH Phone#: : 1955 Age: 69 Gender: M Pt. Type: Out Account: [id number] Location: 052 Ordering: ELIDA CELESTE Exam Date: 04/18/2025/13:53 Family Phys: Charge Code: [id number] Physician: Butts Order #: [id number] Dose#: PROCEDURE: MRI SHOULDER LT WITHOUT CONTRAST COMPARISON: None. INDICATIONS: Left shoulder strain and pain TECHNIQUE: A variety of imaging planes and parameters were utilized for visualization of suspected pathology. Images were performed without contrast. FINDINGS: ROTATOR CUFF REGION CUFF TENDONS: Supraspinatus full-thickness tendon tear with retraction measuring 3.5 cm. The subscapularis is intact. The infraspinatus tendon demonstrates full-thickness tear with retraction approximately 2.6 cm. The free edge of the tendon is thickened in hyperintense in signal. There is interstitial tear extending to the myotendinous junction. CUFF MUSCLES: There is severe supraspinatus muscle atrophy. There is edema in the infraspinatus muscle. There is mild subscapularis muscle atrophy without edema. DELTOID: Normal. No significant atrophy or tear. LONG BICEPS TENDON: There is a partial longitudinal tear long has biceps tendon distal to the bicipital groove, series 4, image 13. LABRUM/BICEPS ANCHOR SUPERIOR: Long head biceps tendon is hyperintense in signal, series 102, image 11 superior labrum. There is superior labral tear, image 15. ANTERIOR/INFERIOR: There is anterior labral tear image 16 POSTERIOR: Posterior labral tear, series 4, image 17. CAPSULE ANTERIOR/INFERIOR: Middle glenohumeral ligament is thickened in hyperintense in signal consistent with high-grade sprain or partial tear, series 4, image 18 POSTERIOR: Normal. No visible capsular laxity or thickening. AC JOINT REGION AC JOINT: Arthrosis at the acromioclavicular joint. There is fluid in the acromioclavicular joint. AC LIGAMENTS: Acromioclavicular ligament is not visualized concerning for chronic tear. CC LIGAMENTS: Normal coracoclavicular ligaments. ACROMION: Type 3 configuration SUBACROMIAL BURSA: There is trace amount of fluid in the subacromial subdeltoid bursa Continued Report - Page 2 of 2 Patient: RUDDY RICH Phone#: : 1955 Age: 69 Gender: M Pt. Type: Out Account: [id number] Location: 05 Ordering: ELIDA CELESTE Exam Date: 04/18/2025/13:53 Family Phys: Charge Code: [id number] Physician: Butts Order #: [id number] Dose#: HYALINE CARTILAGE: Normal. No visible cartilage narrowing or focal defect. OTHER BONES: The humeral head is posteriorly subluxed relative to the glenoid. OTHER OBSERVATIONS: There is a loose body in the effusion posterior to the glenoid, series 4, image 11. The loose body measures 0.2 x 0.7 cm CONCLUSION: 1. Infraspinatus full-thickness tendon tear with retraction. There is interstitial tear extending to the myotendinous junction. There is edema throughout the infraspinatus muscle. 2. Supraspinatus full-thickness tear with retraction and chronic muscle atrophy. 3. Longitudinal partial split tear in the long head biceps tendon extending to the biceps labral anchor 4. Anterior superior and posterior labral tears 5. Loose body 6. Humeral head is posterior subluxed 7. Anterior, superior and posterior labral tears. 8. Middle glenohumeral ligament is thickened and abnormal signal suggesting partial tendon tear Dictated by: Collette Antoine MD on 04/20/2025 at 20:34 Approved by: Collette Antoine MD on 04/20/2025 at 20:53 Normal [facility] ABO/Rh (Gel)on 02-14-2025 ABO/Rh Interp Positive Invalid Interpretation Code [facility] Comment on above: Performed By: #### A BSGEL, ABOGEL, PRO #### [facility] [address] [place] [address]14 ABS (Gel)on 02-14-2025 ABSC Interp (Gel) Negative [facility] Comment on above: Performed By: #### G FR, CRE #### [facility] [address] [place] [address] LABORATORYOrdered By: Jared Ackerman on 02-14-2025 ABO and Rh group Nom (Bld) Blood group A Rh(D) positive Invalid Interpretation Code AH BB Auto SS Blood group antibody screen Ql Negative ABSC (02/14/25 6:48 AM) Normal AH BB Auto SS LABORATORYOrdered By: SYSTEM SYSTEM on 02-14-2025 PT Coag (PPP) [Time] 12.1 s Normal 9.0 - 1 4.4 seconds AH [facility] SS Comment on above: Interpretive Data: E ffective 03/22/08, Protime results may be affected by some antibiotics (i.e. Ciprofloxacin, Azithromycin, Bactrim) which may potentiate the action of oral anticoagulants, with further increases in Protime/INR. PT International Ratio 1.0 ratio Invalid Interpretation Code AH [facility] SS Comment on above: Interpretive Data: T chad [employer] (CHEST, 1991, 102:312S-25S) recommended therapeutic range for oral anticoagulant therapy is: LOW RISK: Prophylaxis of venous thrombosis INR: 2.0-3.0 Treatment of pulmonary embolism 2.0-3.0 Prevention of systemic embolism 2.0-3.0 HIGH RISK: Mechanical prosthetic valves 2.5-3.5 PROon 02-14-2025 INR Coag (PPP) [Relative time] 1.0 {INR} Normal [facility] Comment on above: Result Comment: [employer] (CHEST, 1991, 102:312S-25S) recommended therapeutic range for oral anticoagulant therapy is: LOW RISK: Prophylaxis of venous thrombosis INR: 2.0-3.0 Treatment of pulmonary embolism 2.0-3.0 Prevention of systemic embolism 2.0-3.0 HIGH RISK: Mechanical prosthetic valves 2.5-3.5 Performed By: #### A PAMELA OLIVEIRA PRO #### [address] [address] PT Coag (PPP) [Time] 12.1 s Normal 9.0-14.4 [facility] Comment on above: Result Comment: Effe ctive 03/22/08, Protime results may be affected by some antibiotics (i.e. Ciprofloxacin, Azithromycin, Bactrim) which may potentiate the action of oral anticoagulants, with further increases in Protime/INR. Performed By: #### A PAMELA OLIVEIRA PRO #### [address] [address] .Auto Diffon 02-07-2025 Basophil, Absolute 0.0 10 3/mcL Normal 0.0-0.3 [facility] Comment on above: Performed By: #### G FR, CRE #### [address] [address] Basophils/100 WBC (Bld) 0.5 % Normal 0.0-2.5 [facility] Comment on above: Performed By: #### G FR, CRE #### [address] [address] Eosinophil, Absolute 0.1 10 3/mcL Normal 0.0-0.7 [facility] Comment on above: Performed By: #### G FR, CRE #### [address] [address] Eosinophils/100 WBC (Bld) 1.0 % Normal 0.0-6.0 [facility] Comment on above: Performed By: #### G FR, CRE #### [address] [address] Lymphocyte, Absolute 1.6 10 3/mcL Normal 0.9-4.3 [facility] Comment on above: Performed By: #### G FR, CRE #### [address] [address] Lymphocytes/100 WBC (Bld) 25.5 % Normal 20.0-40.0 [facility] Comment on above: Performed By: #### G FR, CRE #### [address] [address] Monocyte, Absolute 0.7 10 3/mcL Normal 0.1-1.4 [facility] Comment on above: Performed By: #### G FR, CRE #### [address] [address] Monocytes/100 WBC (Bld) 11.4 % Normal 2.0-13.0 [facility] Comment on above: Performed By: #### G FR, CRE #### [address] [address] Neutrophils/100 WBC (Bld) 61.6 % Normal 50.0-75.0 [facility] Comment on above: Performed By: #### G FR, CRE #### [address] [address] .GFRon 02-07-2025 Estimated Glomerular Filtration Rate 90 ml/min/1.73sqm Normal [facility] Comment on above: Result Comment: Stages of Chronic Kidney Disease (CKD) Stage Description eGFR(ml/min/1.73 sq.m.) CKD 1 Normal kidney function or >=90 normal kindney function with possible kidney damage (ex. Proteinuria) CKD 2 Kidney damage with mild loss 60-89 of kidney function CKD 3a Mild to moderate loss of kidney 45-59 function CKD 3b Moderate to severe loss of 30-44 of kindey function CKD 4 Severe loss of kidney function 15-29 CKD 5 Kidney failure <15 Note: (go live 2024) the eGFR calculation was updated to the 2020 CKD-EPI creatinine equation without a race factor to calculate the eGFR results. Performed By: #### A BOGEL, FIB, PLT, APTT, ABSGEL, PRO #### [address] [address] .NEUABSon 02-07-2025 Neutrophil, Absolute 4.0 10 3/mcL Normal 2.3-8.1 [facility] Comment on above: Performed By: #### G FR, CRE #### [address] [address] BMPon 02-07-2025 BUN/Creatinine Ratio 26.1 ratio High 10.0-22.0 [facility] Comment on above: Performed By: #### Elvis HERNANDEZ, CRE #### [address] [address] Calcium [Mass/Vol] 9.3 mg/dL Normal 8.7-10.4 [facility] Comment on above: Performed By: #### Elvis FR, CRE #### [address] [address] Chloride [Moles/Vol] 106 mmol/L Normal 98-110 [facility] Comment on above: Performed By: #### Elvis HERNANDEZ, CRE #### [place] [id number] CO2 [Moles/Vol] 26 mmol/L Normal 22-32 [facility] Comment on above: Performed By: #### Elvis HERNANDEZ, CRE #### [place] [id number] Creatinine [Mass/Vol] 0.92 mg/dL Normal 0.60-1.40 [facility] Comment on above: Result Comment: Test ing performed on Telogis analyzer using enzymatic creatinine methodology. Performed By: #### Elvis HERNANDEZ, CRE #### [address] [address] Electrolyte Balance 9.0 mEq/L Normal 4.0-15.0 [facility] Comment on above: Performed By: #### Elvis FR, CRE #### [address] [address] Glucose [Mass/Vol] 107 mg/dL Normal 82-115 [facility] Comment on above: Performed By: #### Elvis FR, CRE #### [address] [address] Potassium [Moles/Vol] 3.8 mmol/L Normal 3.5-5.0 [facility] Comment on above: Performed By: #### Elvis FR, CRE #### [address] [address] Sodium [Moles/Vol] 141 mmol/L Normal 136-145 [facility] Comment on above: Performed By: #### G FR, CRE #### [place] [address] Urea nitrogen [Mass/Vol] 24.0 mg/dL High 8.0-22.0 [facility] Comment on above: Performed By: #### G FR, CRE #### [place] [id number] CBCon 02-07-2025 Erythrocyte distribution width (RBC) [Ratio] 13.6 % Normal 11.5-15.5 [facility] Comment on above: Performed By: #### G FR, CRE #### [place] [address] Hematocrit (Bld) [Volume fraction] 44.1 % Normal 40.0-52.0 [facility] Comment on above: Performed By: #### G FR, CRE #### [place] [address] Hgb 15.3 G/dL Normal 13.0-17.5 [facility] Comment on above: Performed By: #### G FR, CRE #### [place] [address] MCH (RBC) [Entitic mass] 31.9 pg Normal 27.0-33.0 [facility] Comment on above: Performed By: #### G FR, CRE #### [place] [address] MCHC 34.6 G/dL Normal 32.0-36.0 [facility] Comment on above: Performed By: #### G FR, CRE #### [place] [address] MCV (RBC) [Entitic vol] 92.0 fL Normal 81.0-100.0 [facility] Comment on above: Performed By: #### G FR, CRE #### [place] [address] Platelet 217 10 3/mcL Normal 150-450 [facility] Comment on above: Performed By: #### G FR, CRE #### [address] [place], [place] [address] Platelet mean volume (Bld) [Entitic vol] 7.3 fL Normal 6.4-10.5 [facility] Comment on above: Performed By: #### Elvis FR, CRE #### [facility] [address] [place] [address] RBC 4.79 10 6/mcL Normal 4.50-6.00 [facility] Comment on above: Performed By: #### Elvis FR, CRE #### [facility] [address] [place] [address] WBC 6.4 10 3/mcL Normal 4.5-10.8 [facility] Comment on above: Performed By: #### Elvis , CRE #### [address] [address] LABORATORYOrdered By: SYSTEM SYSTEM on 02-07-2025 Basophils (Bld) [#/Vol] 0.0 103/mcL Normal 0.0 - 0.3 10^3/mcL Workflow SS Basophils/100 WBC (Bld) 0.5 % Normal 0.0 - 2.5 % Workflow SS Calcium [Mass/Vol] 9.3 mg/dL Normal 8.7 - 10. 4 mg/dL ADM SS Chloride [Moles/Vol] 106 mmol/L Normal 98 - 11 0 mEq/L ADM SS CO2 [Moles/Vol] 26 mmol/L Normal 22 - 32 mEq/L ADM SS Creatinine [Mass/Vol] 0.92 mg/dL Normal 0.60 - 1.40 mg/dL ADM SS Comment on above: Interpretive Data: T esting performed on Telogis analyzer using enzymatic creatinine methodology. Electrolyte Balance 9.0 mEq/L Normal 4.0 - 15 .0 mEq/L ADM SS Eosinophils (Bld) [#/Vol] 0.1 103/mcL Normal 0.0 - 0.7 10^3/mcL AH Workflow SS Eosinophils/100 WBC (Bld) 1.0 % Normal 0.0 - 6.0 % Workflow SS Erythrocyte distribution width (RBC) [Ratio] 13.6 % Normal 11.5 - 15.5 % Workflow SS Estimated Glomerular Filtration Rate 90 ml/min/1.73sqm Invalid Interpretation Code Chemistry S Comment on above: Interpretive Data: Stages of Chronic Kidney Disease (CKD) Stage Description eGFR(ml/min/1.73 sq.m.) CKD 1 Normal kidney function or >=90 normal kindney function with possible kidney damage (ex. Proteinuria) CKD 2 Kidney damage with mild loss 60-89 of kidney function CKD 3a Mild to moderate loss of kidney 45-59 function CKD 3b Moderate to severe loss of 30-44 of kindey function CKD 4 Severe loss of kidney function 15-29 CKD 5 Kidney failure <15 Note: (go live 2024) the eGFR calculation was updated to the 2020 CKD-EPI creatinine equation without a race factor to calculate the eGFR results. Glucose [Mass/Vol] 107 mg/dL Normal 82 - 115 mg/dL AH ADM SS Hematocrit (Bld) [Volume fraction] 44.1 % Normal 40.0 - 52.0 % AH Workflow SS Hemoglobin (Bld) [Mass/Vol] 15.3 G/dL Normal 13.0 - 17.5 G/dL AH Workflow SS Lymphocytes (Bld) [#/Vol] 1.6 103/mcL Normal 0.9 - 4.3 10^3/mcL AH Workflow SS Lymphocytes/100 WBC (Bld) 25.5 % Normal 20.0 - 40.0 % AH Workflow SS MCH (RBC) [Entitic mass] 31.9 pg Normal 27.0 - 33.0 pg AH Workflow SS MCHC 34.6 G/dL Normal 32.0 - 36.0 G/dL AH Workflow SS MCV (RBC) [Entitic vol] 92.0 fL Normal 81.0 - 100.0 fL AH Workflow SS Monocytes (Bld) [#/Vol] 0.7 103/mcL Normal 0.1 - 1.4 10^3/mcL AH Workflow SS Monocytes/100 WBC (Bld) 11.4 % Normal 2.0 - 13.0 % AH Workflow SS Neutrophils (Bld) [#/Vol] 4.0 103/mcL Normal 2.3 - 8.1 10^3/mcL AH Workflow SS Neutrophils/100 WBC (Bld) 61.6 % Normal 50.0 - 75.0 % AH Workflow SS Platelet mean volume (Bld) [Entitic vol] 7.3 fL Normal 6.4 - 10.5 fL AH Workflow SS Platelets (Bld) [#/Vol] 217 103/mcL Normal 150 - 450 10^3/mcL Workflow SS Potassium [Moles/Vol] 3.8 mmol/L Normal 3.5 - 5.0 mEq/L AH ADM SS RBC (Bld) [#/Vol] 4.79 106/mcL Normal 4.50 - 6.0 0 10^6/mcL AH Workflow SS Sodium [Moles/Vol] 141 mmol/L Normal 136 - 145 mEq/L AH ADM SS Urea nitrogen [Mass/Vol] 24.0 mg/dL High 8.0 - 22.0 mg/dL AH ADM SS Urea nitrogen/Creatinine [Mass ratio] 26.1 ratio High 10.0 - 22.0 ratio AH ADM SS WBC (Bld) [#/Vol] 6.4 103/mcL Normal 4.5 - 10.8 10^3/mcL Workflow SS Absolute neutrophil countOrd ered By: Robin Barrett on 12-17-2024 Neutrophils (Bld) [#/Vol] 6.1 10*3/uL 2.0-7.7 [facility] Anion gap in Serum or Plasma Ordered By: Robni Barrett on 12-17-2024 Anion gap [Moles/Vol] 12 mmol/L 5-15 [facility] BUN/creatinine ratioOrdered By: Robin Barrett on 12-17-2024 Urea nitrogen/Creatinine [Mass ratio] 25.5 mg/mg High 10-20 [facility] Basophil percentageOrdered B y: Robin Barrett on 12-17-2024 Basophils/100 WBC (Bld) 0.4 % 0-1 [facility] Bilirubin, totalOrdered By: Robin Barrett on 12-17-2024 Bilirubin [Mass/Vol] 0.56 mg/dL 0.00-1.30 [facility] CBC W/Diff, Automatedon 12-07 Absolute Lymph 1.84 X10 3/uL Normal 0.83-4.51 [facility] Comment on above: Performed By: #### L 500.4050, L100.0100 #### [facility] [address] [place] [address]. [place], [address] Absolute Neut 6.1 X10 3/uL Normal 2.0-7.7 [facility] Comment on above: Performed By: #### L 500.4050, L100.0100 #### [facility] [address] [place], [address] Basophils/100 WBC (Bld) 0.4 % Normal 0-1 [facility] Comment on above: Performed By: #### L 500.4050, L100.0100 #### [facility] [address] [place], [address] Eosinophils/100 WBC (Bld) 1.8 % Normal 0-5 [facility] Comment on above: Performed By: #### L 500.4050, L100.0100 #### [facility] [address] [place], [address] Erythrocyte distribution width (RBC) [Ratio] 12.5 % Normal 11.6-14.6 [facility] Comment on above: Performed By: #### L 500.4050, L100.0100 #### [facility] [address] [place], [address] Hematocrit (Bld) [Volume fraction] 44.6 % Normal 40-54 [facility] Comment on above: Performed By: #### L 500.4050, L100.0100 #### [facility] [address] [place], [address] Hemoglobin (Bld) [Mass/Vol] 14.6 g/dL Normal 13.0-16.5 [facility] Comment on above: Performed By: #### L 500.4050, L100.0100 #### [facility] [address] [place], [address] IG% 0.400 Normal 0.0-0.9 [facility] Comment on above: Result Comment: IG% - Immature Granulocytes (promyelocytes, myelocytes and metamyelocytes) > 1% indicates that a LEFT SHIFT is Present. Performed By: #### L 500.4050, L100.0100 #### [facility] [address] [place], [address] Lymphocytes/100 WBC (Bld) 20.5 % Normal 19-41 [facility] Comment on above: Performed By: #### L 500.4050, L100.0100 #### [facility] [address] [place], [address] MCH (RBC) [Entitic mass] 32.2 pg High 27.0-32.0 [facility] Comment on above: Performed By: #### L 500.4050, L100.0100 #### [facility] [address] [place], [address] MCHC (RBC) [Mass/Vol] 32.7 g/dL Normal 32-36 [facility] Comment on above: Performed By: #### L 500.4050, L100.0100 #### [facility] [address] [place], [address] MCV (RBC) [Entitic vol] 98.2 fL High 80-94 [facility] Comment on above: Performed By: #### L 500.4050, L100.0100 #### [facility] [address] [place], [address] Monocytes/100 WBC (Bld) 9.6 % Normal 0-10 [facility] Comment on above: Performed By: #### L 500.4050, L100.0100 #### [facility] [address] [place], [address] Neutrophils/100 WBC (Bld) 67.3 % Normal 47-70 [facility] Comment on above: Performed By: #### L 500.4050, L100.0100 #### [facility] [address] [place], [address] Nucleated RBC (Bld) [#/Vol] 0 10*3/uL Normal 0-5 [facility] Comment on above: Performed By: #### L 500.4050, L100.0100 #### [facility] [address] [place], [address] Platelet mean volume (Bld) [Entitic vol] 9.7 fL Normal 6.2-12.0 [facility] Comment on above: Performed By: #### L 500.4050, L100.0100 #### [facility] [address] [place], [address] Platelets (Bld) [#/Vol] 208 10*3/uL Normal 150-450 [facility] Comment on above: Performed By: #### L 500.4050, L100.0100 #### [facility] [address] [place], [address] RBC (Bld) [#/Vol] 4.54 10*6/uL Low 4.6-6.2 [facility] Comment on above: Performed By: #### L 500.4050, L100.0100 #### [facility] [address] [place], [address] RDW SD 45.2 fl High 35.1-43.9 [facility] Comment on above: Performed By: #### L 500.4050, L100.0100 #### [facility] [address] [place], [address] WBC (Bld) [#/Vol] 9.0 10*3/uL Normal 4.4-11.0 [facility] Comment on above: Performed By: #### L 500.4050, L100.0100 #### [facility] [address] [place], [address] Carbon dioxide, total [Moles /volume] in Central venous bloodOrdered By: Robin Barrett on 12-17-2024 CO2 [Moles/Vol] 24.4 mmol/L 21.0-32.0 [facility] Chloride assayOrdered By: Karla Barrett on 12-17-2024 Chloride [Moles/Vol] 104 mmol/L 98-108 [facility] Comprehensive Metabolic Prof ilon 12-17-2024 Albumin [Mass/Vol] 4.3 g/dL Normal 3.4-4.8 [facility] Comment on above: Performed By: #### L 500.4050, L100.0100 #### [facility] [address] [place], [address] Albumin/Globulin [Mass ratio] 1.2 {ratio} Normal 0.9-2.4 [facility] Comment on above: Performed By: #### L 500.4050, L100.0100 #### [facility] [address] [place], [address] ALK PHOS 71 U/L Normal 40-129 [facility] Comment on above: Performed By: #### L 500.4050, L100.0100 #### [facility] [address] [place], [address] ALT [Catalytic activity/Vol] 24 U/L Normal <=46 [facility] Comment on above: Performed By: #### L 500.4050, L100.0100 #### [facility] [address] [place], [address] AST [Catalytic activity/Vol] 15 U/L Normal <=37 [facility] Comment on above: Performed By: #### L 500.4050, L100.0100 #### [facility] [address] [place], [address] Bilirubin [Mass/Vol] 0.56 mg/dL Normal 0.00-1.30 [facility] Comment on above: Performed By: #### L 500.4050, L100.0100 #### [facility] [address] [place], [address] BUN/CRE 25.5 RATIO High 10-20 [facility] Comment on above: Performed By: #### L 500.4050, L100.0100 #### [facility] [address] [place], [address] Calcium [Mass/Vol] 9.6 mg/dL Normal 7.6-11.0 [facility] Comment on above: Performed By: #### L 500.4050, L100.0100 #### [facility] [address] [place], [address] Chloride [Moles/Vol] 104 mmol/L Normal 98-108 [facility] Comment on above: Performed By: #### L 500.4050, L100.0100 #### [facility] [address] [place], [address] CO2 [Moles/Vol] 24.4 mmol/L Normal 21.0-32.0 [facility] Comment on above: Performed By: #### L 500.4050, L100.0100 #### [facility] [address] [place], [address] Creatinine [Mass/Vol] 1.02 mg/dL Normal 0.70-1.20 [facility] Comment on above: Performed By: #### L 500.4050, L100.0100 #### [facility] [address] [place], [address] GAP 12 Normal 5-15 [facility] Comment on above: Performed By: #### L 500.4050, L100.0100 #### [facility] [address] [place], [address] GFR/1.73 sq M.predicted among non-blacks MDRD (S/P/Bld) [Vol rate/Area] 80 mL/min/{1.73_m2} Normal >60 [facility] Comment on above: Result Comment: mL/m in/1.73m2 CKD-EPI Creatinine Equation (2020) Performed By: #### L 500.4050, L100.0100 #### [facility] [address] [place], [address] Globulin (S) [Mass/Vol] 3.5 g/dL Normal 2.2-4.2 [facility] Comment on above: Performed By: #### L 500.4050, L100.0100 #### [facility] [address] [place], [address] Glucose [Mass/Vol] 98 mg/dL Normal 70-99 [facility] Comment on above: Performed By: #### L 500.4050, L100.0100 #### [facility] [address] [place], [address] Potassium [Moles/Vol] 4.5 mmol/L Normal 3.3-5.1 [facility] Comment on above: Performed By: #### L 500.4050, L100.0100 #### [facility] [address] [place], [address] Sodium [Moles/Vol] 141 mmol/L Normal 133-145 [facility] Comment on above: Performed By: #### L 500.4050, L100.0100 #### [facility] [address] [place], [address] T PROT 7.7 g/dL Normal 5.9-8.4 [facility] Comment on above: Performed By: #### L 500.4050, L100.0100 #### [facility] [address] [place], [address] Urea nitrogen [Mass/Vol] 26 mg/dL High 4-19 [facility] Comment on above: Performed By: #### L 500.4050, L100.0100 #### [facility] [address] [place], [address] Eosinophil percentageOrdered By: Robin Barrett on 12-17-2024 Eosinophils/100 WBC (Bld) 1.8 % 0-5 [facility] Erythrocyte distribution wid th (RBC) [Ratio]Ordered By: Robin Barrett on 12-17-2024 Erythrocyte distribution width (RBC) [Entitic vol] 45.2 fL High 35.1-43.9 [facility] Erythrocyte distribution wid th ratioOrdered By: Robin Barrett on 12-17-2024 Erythrocyte distribution width (RBC) [Ratio] 12.5 % 11.6-14.6 [facility] GFR/1.73 sq M.predicted saqib g non-blacks MDRD (S/P/Bld) [Vol rate/Area]Ordered By: Robin Barrett on 12-17-2024 Estimated GFR (MDRD) Non-Af Amer 80 >60 [facility] Comment on above: mL/min/1.73m2 CKD-EP I Creatinine Equation (2020) Hematocrit Auto (Bld) [Volum e fraction]Ordered By: Robinemily Barrett on 12-17-2024 Hematocrit (Bld) [Volume fraction] 44.6 % 40-54 [facility] Hemoglobin measurementOrdere d By: Robin Barrett on 12-17-2024 Hemoglobin (Bld) [Mass/Vol] 14.6 g/dL 13.0-16.5 [facility] Immature granulocytes/100 WB C Auto (Bld)Ordered By: Robin Barrett on 12-17-2024 Immature granulocytes/100 WBC (Bld) 0.400 % 0.0-0.9 [facility] Comment on above: IG% - Immature Granu locytes (promyelocytes, myelocytes and metamyelocytes) > 1% indicates that a LEFT SHIFT is Present. Laboratory - Chemistry and C hemistry - challengeOrdered By: Robin Barrett on 12-17-2024 AST [Catalytic activity/Vol] 15 U/L <38 [facility] Lymphocytes Auto (Unsp spec) [#/Vol]Ordered By: Robin Barrett 12-17-2024 Lymphocytes (Bld) [#/Vol] 1.84 10*3/uL 0.83-4.51 [facility] Lymphocytes/100 WBC Auto (Un sp spec)Ordered By: Robin Barrett on 12-17-2024 Lymphocytes/100 WBC (Bld) 20.5 % 19-41 [facility] MCV (mean corpuscular volume ) determinationOrdered By: Robin Barrett on 12-17-2024 MCV (RBC) [Entitic vol] 98.2 fL High 80-94 [facility] Mean corpuscular hemoglobin (MCH) determinationOrdered By: Robin Barrett on 12-17-2024 MCH (RBC) [Entitic mass] 32.2 pg High 27.0-32.0 [facility] Mean corpuscular hemoglobin concentration (MCHC) determinationOrdered By: Robin Barrett on 12-17-2024 MCHC (RBC) [Mass/Vol] 32.7 g/dL 32-36 [facility] Mean platelet volume determi nationOrdered By: Robin Barrett on 12-17-2024 Platelet mean volume (Bld) [Entitic vol] 9.7 fL 6.2-12.0 [facility] Monocyte percentageOrdered B y: Robin Barrett on 12-17-2024 Monocytes/100 WBC (Bld) 9.6 % 0-10 [facility] Neutrophil percentageOrdered By: Robin Barrett on 12-17-2024 Neutrophils/100 WBC (Bld) 67.3 % 47-70 [facility] Nucleated red blood cell per centageOrdered By: Robin Barrett on 12-17-2024 Nucleated RBC/100 WBC (Bld) [Ratio] 0 % 0-5 [facility] Platelet countOrdered By: Karla Barrett on 12-17-2024 Platelets (Bld) [#/Vol] 208 10*3/uL 150-450 [facility] Potassium (Unsp spec) [Mass/ Vol]Ordered By: Robin Barrett on 12-17-2024 Potassium [Moles/Vol] 4.5 mmol/L 3.3-5.1 [facility] RBC Auto (Bld) [#/Vol]Ordere d By: Robin Barrett on 12-17-2024 RBC (Bld) [#/Vol] 4.54 10*6/uL Low 4.6-6.2 [facility] Serum creatinine measurement (mass/volume)Ordered By: Robin Barrett on 12-17-2024 Creatinine [Mass/Vol] 1.02 mg/dL 0.70-1.20 [facility] Serum globulin measurementOr dered By: Robin Barrett on 12-17-2024 Globulin (S) [Mass/Vol] 3.5 g/dL 2.2-4.2 [facility] Serum glucose measurement (m ass/volume)Ordered By: Robin Barrett on 12-17-2024 Glucose [Mass/Vol] 98 mg/dL 70-99 [facility] Serum or plasma alanine thomas otransferase (ALT) measurementOrdered By: Robin Barrett on 12-17-2024 ALT [Catalytic activity/Vol] 24 U/L <47 [facility] Serum or plasma albumin bobby urement (mass/volume)Ordered By: Robin Barrett on 12-17-2024 Albumin [Mass/Vol] 4.3 g/dL 3.4-4.8 [facility] Serum or plasma albumin/glob ulin mass ratioOrdered By: Robin Barrett on 12-17-2024 Albumin/Globulin [Mass ratio] 1.2 {ratio} 0.9-2.4 [facility] Serum or plasma alkaline kendal sphatase measurementOrdered By: Robin Barrett on 12-17-2024 ALP [Catalytic activity/Vol] 71 U/L 40-129 [facility] Serum or plasma calcium bobby urement (mass/volume)Ordered By: Robin Barrett on 12-17-2024 Calcium [Mass/Vol] 9.6 mg/dL 7.6-11.0 [facility] Serum or plasma urea nitroge n measurement (mass/volume)Ordered By: Robin Barrett on 12-17-2024 Urea nitrogen [Mass/Vol] 26 mg/dL High 4-19 [facility] Sodium levelOrdered By: Naresh Barrett on 12-17-2024 Sodium [Moles/Vol] 141 mmol/L 133-145 [facility] Total proteinOrdered By: Miguel Angel Barrett on 12-17-2024 Protein [Mass/Vol] 7.7 g/dL 5.9-8.4 [facility] White blood cell (WBC) count Ordered By: Robin Barrett on 12-17-2024 WBC (Bld) [#/Vol] 9.0 10*3/uL 4.4-11.0 [facility] BMP with eGFRon 07-01-2024 AGE 68 years Normal [facility] Comment on above: Performed By: #### 2 [id number] #### [facility],[address] [place] [address] Anion gap [Moles/Vol] 12 mmol/L Normal 10 - 20 [facility] Comment on above: Performed By: #### 2 83770 #### [facility],[address] [place] [address] BMP with eGFR Normal [facility] Comment on above: Result Comment: BASI C METABOLIC PANEL Performed By: #### 2 80160 #### [facility],[address] [place] [address] Calcium [Mass/Vol] 9.0 mg/dL Normal 8.5 - 10.1 [facility] Comment on above: Performed By: #### 2 41528 #### [facility],[address] [place], [place] [id number] Chloride [Moles/Vol] 104 mmol/L Normal 98 - 107 [facility] Comment on above: Performed By: #### 2 98752 #### [facility],[address] [place] [address] CO2 [Moles/Vol] 28.3 mmol/L Normal 21.0 - 32.0 [facility] Comment on above: Performed By: #### 2 81278 #### [facility],[address] [place] [address] Creatinine [Mass/Vol] 1.09 mg/dL Normal 0.70 - 1.30 [facility] Comment on above: Performed By: #### 2 68528 #### [facility],[address] [place] [address] GFR/1.73 sq M.predicted among non-blacks MDRD (S/P/Bld) [Vol rate/Area] mL/min/{1.73_m2} Normal 60 - 999 [facility] Comment on above: Performed By: #### 2 73878 #### [facility],[address] [place] [address] Result Comment: ACCO RDING TO THE NATIONAL KIDNEY DISEASE EDUCATION PROGRAM(NKDE), A NORMAL eGFR IS A VALUE GREATER THAN OR EQUAL TO 60 ML/MIN/1.73 SQ METERS. CHRONIC KIDNEY DISEASE: <60mL/MIN/1.73 SQ METERS KIDNEY FAILURE: <15mL/MIN/1.73 SQ METERS THIS TEST SHOULD ONLY BE USED FOR PATIENTS 18 YEARS OF AGE AND OLDER. Glucose [Mass/Vol] 84 mg/dL Normal 74 - 106 [facility] Comment on above: Performed By: #### 2 84510 #### [facility],[address] [place] [address] Potassium [Moles/Vol] 4.3 mmol/L Normal 3.5 - 5.1 [facility] Comment on above: Performed By: #### 2 89039 #### [facility],[address] [place], [place] [id number] Sodium [Moles/Vol] 140 mmol/L Normal 136 - 145 [facility] Comment on above: Performed By: #### 2 58490 #### [facility],[address] [place], [place] [id number] Urea nitrogen [Mass/Vol] 19 mg/dL High 7 - 18 [facility] Comment on above: Performed By: #### 2 39415 #### [facility],[address] [place], [place] [id number] CBC + DIFFon 07-01-2024 Baso # 0.03 x10EE3/UL Normal 0.00 - 0.10 [facility] Comment on above: Performed By: #### 2 70273 #### [facility],[address] [place] [address] Basophils/100 WBC (Bld) 0.3 % Normal 0.0 - 2.0 [facility] Comment on above: Performed By: #### 2 01770 #### [facility],[address] [place] [address] CBC + DIFF Normal [facility] Comment on above: Result Comment: CBC- COMPLETE BLOOD COUNT Performed By: #### 2 20462 #### [facility],[address] [place] [address] EO # 0.22 x10EE3/UL Normal 0.00 - 0.50 [facility] Comment on above: Performed By: #### 2 63504 #### [facility],[address] [place] [address] Eosinophils/100 WBC (Bld) 2.3 % Normal 0.0 - 7.0 [facility] Comment on above: Performed By: #### 2 55710 #### [facility],[address] [place] [address] Erythrocyte distribution width (RBC) [Ratio] 12.7 % Normal 12.0 - 15.6 [facility] Comment on above: Performed By: #### 2 84692 #### [facility],[address] [place] [address] Hematocrit (Bld) [Volume fraction] 39.3 % Low 40.0 - 52.0 [facility] Comment on above: Performed By: #### 2 70590 #### [facility],[address] [place] [address] Hemoglobin (Bld) [Mass/Vol] 13.6 g/dL Normal 13.0 - 17.5 [facility] Comment on above: Performed By: #### 2 13351 #### [facility],[address] [place] [address] Lymph # 1.76 x10EE3/UL Normal 0.80 - 2.80 [facility] Comment on above: Performed By: #### 2 25628 #### [facility],[address] [place] [address] Lymphocytes/100 WBC (Bld) 18.5 % Low 20.0 - 45.0 [facility] Comment on above: Performed By: #### 2 24417 #### [facility],[address] [place] [address] MANUAL DIFF N/A Normal [facility] Comment on above: Performed By: #### 2 09959 #### [facility],[address] [place] [address] MCH (RBC) [Entitic mass] 32 pg Normal 27 - 33 [facility] Comment on above: Performed By: #### 2 21054 #### [facility],[address] [place] [address] MCHC 35 X10 3 Normal 32 - 36 [facility] Comment on above: Performed By: #### 2 39228 #### [facility],[address] [place] [address] MCV (RBC) [Entitic vol] 93 fL Normal 81 - 98 [facility] Comment on above: Performed By: #### 2 50483 #### [facility],[address] [place] [address] Bulloch # 0.83 x10EE3/UL Normal 0.20 - 1.00 [facility] Comment on above: Performed By: #### 2 20333 #### [facility],[address] [place] [address] MONOS % 8.8 % Normal 0.0 - 10.0 [facility] Comment on above: Performed By: #### 2 33759 #### [facility],[address] [place] [address] Morphology Jaylon (Bld) [Interp] N/A Normal [facility] Comment on above: Performed By: #### 2 86910 #### [facility],[address] [place] [address] Neut # 6.67 x10EE3/UL Normal 1.50 - 7.10 [facility] Comment on above: Performed By: #### 2 56771 #### [facility],[address] [place] [address] Neutrophils/100 WBC (Bld) 70.1 % Normal 46.0 - 76.0 [facility] Comment on above: Performed By: #### 2 35619 #### [facility],[address] [place] [address] PLATELET 249 x10EE3/UL Normal 150 - 450 [facility] Comment on above: Performed By: #### 2 07247 #### [facility],[address] [place] [address] Platelet mean volume (Bld) [Entitic vol] 7.5 fL Normal 6.4 - 10.5 [facility] Comment on above: Result Comment: AUTO MATED DIFFERENTIAL Performed By: #### 2 16021 #### [facility],[address] [place] [address] RBC 4.22 x 10EE6/UL Low 4.50 - 6.00 [facility] Comment on above: Performed By: #### 2 16621 #### [facility],[address] [place] [address] WBC 9.5 x 10EE3/UL Normal 4.5 - 10.8 [facility] Comment on above: Performed By: #### 2 78016 #### [facility],[address] [place] [address] .Auto Diffon 05-19-2024 Basophil, Absolute 0.0 10 3/mcL Normal 0.0-0.3 [facility] Comment on above: Performed By: #### G FR, CRE #### [address] [address] Basophils/100 WBC (Bld) 0.2 % Normal 0.0-2.5 [facility] Comment on above: Performed By: #### G FR, CRE #### [address] [address] Eosinophil, Absolute 0.0 10 3/mcL Normal 0.0-0.7 [facility] Comment on above: Performed By: #### G FR, CRE #### [address] [address] Eosinophils/100 WBC (Bld) 0.0 % Normal 0.0-6.0 [facility] Comment on above: Performed By: #### G FR, CRE #### [address] [address] Lymphocyte, Absolute 0.8 10 3/mcL Low 0.9-4.3 [facility] Comment on above: Performed By: #### G FR, CRE #### [address] [address] Lymphocytes/100 WBC (Bld) 8.3 % Low 20.0-40.0 [facility] Comment on above: Performed By: #### G FR, CRE #### [address] [address] Monocyte, Absolute 0.8 10 3/mcL Normal 0.1-1.4 [facility] Comment on above: Performed By: #### G FR, CRE #### [address] [address] Monocytes/100 WBC (Bld) 8.1 % Normal 2.0-13.0 [facility] Comment on above: Performed By: #### G FR, CRE #### [address] [address] Neutrophils/100 WBC (Bld) 83.4 % High 50.0-75.0 [facility] Comment on above: Performed By: #### G FR, CRE #### [facility] [address] [place], [place] [address] .GFRon 05-19-2024 GFR >60 Normal [facility] Comment on above: Result Comment: GFR Population mean for , Non- Americans Ages 20-29 = 116 mL/min/1.73 sq.m. Ages 30-39 = 107 mL/min/1.73 sq.m. Ages 40-49 = 99 mL/min/1.73 sq.m. Ages 50-59 = 93 mL/min/1.73 sq.m. Ages 60-69 = 85 mL/min/1.73 sq.m. Ages 70+ = 75 mL/min/1.73 sq.m. Chronic Kidney Disease: Less than 60 mL/min/1.73 square meters End Stage Renal Disease: Less than 15 mL/min/1.73 square meters Performed By: #### G FR, CRE #### [address] [address] GFR Non- >60 [facility] Comment on above: Result Comment: GFR Population mean for , Non- Americans Ages 20-29 = 116 mL/min/1.73 sq.m. Ages 30-39 = 107 mL/min/1.73 sq.m. Ages 40-49 = 99 mL/min/1.73 sq.m. Ages 50-59 = 93 mL/min/1.73 sq.m. Ages 60-69 = 85 mL/min/1.73 sq.m. Ages 70+ = 75 mL/min/1.73 sq.m. Chronic Kidney Disease: Less than 60 mL/min/1.73 square meters End Stage Renal Disease: Less than 15 mL/min/1.73 square meters Performed By: #### G FR, CRE #### [address] [address] .NEUABSon 05-19-2024 Neutrophil, Absolute 8.3 10 3/mcL High 2.3-8.1 [facility] Comment on above: Performed By: #### G FR, CRE #### [address] [address] BMPon 05-19-2024 BUN/Creatinine Ratio 18.8 ratio Normal 10.0-22.0 [facility] Comment on above: Performed By: #### G FR, CRE #### [address] [address] Calcium [Mass/Vol] 9.6 mg/dL Normal 8.7-10.4 [facility] Comment on above: Performed By: #### G FR, CRE #### [address] [address] Chloride [Moles/Vol] 105 mmol/L Normal 98-110 [facility] Comment on above: Performed By: #### G FR, CRE #### [address] [address] CO2 [Moles/Vol] 28 mmol/L Normal 22-32 [facility] Comment on above: Performed By: #### G FR, CRE #### [address] [address] Creatinine [Mass/Vol] 0.85 mg/dL Normal 0.60-1.40 [facility] Comment on above: Result Comment: Test ing performed on Telogis analyzer using enzymatic creatinine methodology. Performed By: #### G FR, CRE #### [address] [address] Electrolyte Balance 4.0 mEq/L Normal 4.0-15.0 [facility] Comment on above: Performed By: #### Elvis FR, CRE #### [address] [address] Glucose [Mass/Vol] 178 mg/dL High 82-115 [facility] Comment on above: Performed By: #### G FR, CRE #### [address] [address] Potassium [Moles/Vol] 4.0 mmol/L Normal 3.5-5.0 [facility] Comment on above: Performed By: #### G FR, CRE #### [address] [address] Sodium [Moles/Vol] 137 mmol/L Normal 136-145 [facility] Comment on above: Performed By: #### G FR, CRE #### [place] [id number] Urea nitrogen [Mass/Vol] 16.0 mg/dL Normal 8.0-22.0 [facility] Comment on above: Performed By: #### Elvis FR, CRE #### [place] [address] CBCon 05-19-2024 Erythrocyte distribution width (RBC) [Ratio] 13.0 % Normal 11.5-15.5 [facility] Comment on above: Performed By: #### G FR, CRE #### [place] [address] Hematocrit (Bld) [Volume fraction] 37.4 % Low 40.0-52.0 [facility] Comment on above: Performed By: #### Elvis FR, CRE #### [place] [address] Hgb 12.9 G/dL Low 13.0-17.5 [facility] Comment on above: Performed By: #### G FR, CRE #### [place] [address] MCH (RBC) [Entitic mass] 32.0 pg Normal 27.0-33.0 [facility] Comment on above: Performed By: #### Elvis FR, CRE #### [place] [address] MCHC 34.5 G/dL Normal 32.0-36.0 [facility] Comment on above: Performed By: #### Elvis FR, CRE #### [place] [address] MCV (RBC) [Entitic vol] 92.7 fL Normal 81.0-100.0 [facility] Comment on above: Performed By: #### G FR, CRE #### [place] [id number] Platelet 204 10 3/mcL Normal 150-450 [facility] Comment on above: Performed By: #### G FR, CRE #### [place] [address] Platelet mean volume (Bld) [Entitic vol] 7.2 fL Normal 6.4-10.5 [facility] Comment on above: Performed By: #### G FR, CRE #### [address] [address] RBC 4.03 10 6/mcL Low 4.50-6.00 [facility] Comment on above: Performed By: #### G FR, CRE #### [address] [address] WBC 10.0 10 3/mcL Normal 4.5-10.8 [facility] Comment on above: Performed By: #### G FR, CRE #### [address] [address] LABORATORYOrdered By: SYSTEM SYSTEM on 05-19-2024 Basophils (Bld) [#/Vol] 0.0 103/mcL Normal 0.0 - 0.3 10^3/mcL Workflow SS Basophils/100 WBC (Bld) 0.2 % Normal 0.0 - 2.5 % AH Workflow SS Calcium [Mass/Vol] 9.6 mg/dL Normal 8.7 - 10. 4 mg/dL ADM SS Chloride [Moles/Vol] 105 mmol/L Normal 98 - 11 0 mEq/L ADM SS CO2 [Moles/Vol] 28 mmol/L Normal 22 - 32 mEq/L ADM SS Creatinine [Mass/Vol] 0.85 mg/dL Normal 0.60 - 1.40 mg/dL ADM SS Comment on above: Interpretive Data: T esting performed on Telogis analyzer using enzymatic creatinine methodology. Electrolyte Balance 4.0 mEq/L Normal 4.0 - 15 .0 mEq/L ADM SS Eosinophils (Bld) [#/Vol] 0.0 103/mcL Normal 0.0 - 0.7 10^3/mcL AH Workflow SS Eosinophils/100 WBC (Bld) 0.0 % Normal 0.0 - 6.0 % AH Workflow SS Erythrocyte distribution width (RBC) [Ratio] 13.0 % Normal 11.5 - 15.5 % AH Workflow SS GFR/1.73 sq M.predicted among blacks MDRD (S/P/Bld) [Vol rate/Area] ml/min/1.73sqm Invalid Interpretation Code AH ADM SS Comment on above: Interpretive Data: GFR Population mean for , Non- Americans Ages 20-29 = 116 mL/min/1.73 sq.m. Ages 30-39 = 107 mL/min/1.73 sq.m. Ages 40-49 = 99 mL/min/1.73 sq.m. Ages 50-59 = 93 mL/min/1.73 sq.m. Ages 60-69 = 85 mL/min/1.73 sq.m. Ages 70+ = 75 mL/min/1.73 sq.m. Chronic Kidney Disease: Less than 60 mL/min/1.73 square meters End Stage Renal Disease: Less than 15 mL/min/1.73 square meters GFR/1.73 sq M.predicted among non-blacks MDRD (S/P/Bld) [Vol rate/Area] ml/min/1.73sqm Invalid Interpretation Code ADM SS Comment on above: Interpretive Data: GFR Population mean for , Non- Americans Ages 20-29 = 116 mL/min/1.73 sq.m. Ages 30-39 = 107 mL/min/1.73 sq.m. Ages 40-49 = 99 mL/min/1.73 sq.m. Ages 50-59 = 93 mL/min/1.73 sq.m. Ages 60-69 = 85 mL/min/1.73 sq.m. Ages 70+ = 75 mL/min/1.73 sq.m. Chronic Kidney Disease: Less than 60 mL/min/1.73 square meters End Stage Renal Disease: Less than 15 mL/min/1.73 square meters Glucose [Mass/Vol] 178 mg/dL High 82 - 115 mg/dL AH ADM SS Hematocrit (Bld) [Volume fraction] 37.4 % Low 40.0 - 52.0 % AH Workflow SS Hemoglobin (Bld) [Mass/Vol] 12.9 G/dL Low 13.0 - 17.5 G/dL AH Workflow SS Lymphocytes (Bld) [#/Vol] 0.8 103/mcL Low 0.9 - 4.3 10^3/mcL AH Workflow SS Lymphocytes/100 WBC (Bld) 8.3 % Low 20.0 - 40.0 % AH Workflow SS MCH (RBC) [Entitic mass] 32.0 pg Normal 27.0 - 33.0 pg AH Workflow SS MCHC 34.5 G/dL Normal 32.0 - 36.0 G/dL AH Workflow SS MCV (RBC) [Entitic vol] 92.7 fL Normal 81.0 - 100.0 fL AH Workflow SS Monocytes (Bld) [#/Vol] 0.8 103/mcL Normal 0.1 - 1.4 10^3/mcL AH Workflow SS Monocytes/100 WBC (Bld) 8.1 % Normal 2.0 - 13.0 % AH Workflow SS Neutrophils (Bld) [#/Vol] 8.3 103/mcL High 2.3 - 8.1 10^3/mcL AH Workflow SS Neutrophils/100 WBC (Bld) 83.4 % High 50.0 - 75.0 % AH Workflow SS Platelet mean volume (Bld) [Entitic vol] 7.2 fL Normal 6.4 - 10.5 fL AH Workflow SS Platelets (Bld) [#/Vol] 204 103/mcL Normal 150 - 450 10^3/mcL AH Workflow SS Potassium [Moles/Vol] 4.0 mmol/L Normal 3.5 - 5.0 mEq/L AH ADM SS RBC (Bld) [#/Vol] 4.03 106/mcL Low 4.50 - 6.0 0 10^6/mcL AH Workflow SS Sodium [Moles/Vol] 137 mmol/L Normal 136 - 145 mEq/L AH ADM SS Urea nitrogen [Mass/Vol] 16.0 mg/dL Normal 8.0 - 22.0 mg/dL AH ADM SS Urea nitrogen/Creatinine [Mass ratio] 18.8 ratio Normal 10.0 - 22.0 ratio AH ADM SS WBC (Bld) [#/Vol] 10.0 103/mcL Normal 4.5 - 10.8 10^3/mcL AH Workflow SS .GFRon 05-18-2024 GFR Non- >60 Normal [facility] Comment on above: Result Comment: GFR Population mean for , Non- Americans Ages 20-29 = 116 mL/min/1.73 sq.m. Ages 30-39 = 107 mL/min/1.73 sq.m. Ages 40-49 = 99 mL/min/1.73 sq.m. Ages 50-59 = 93 mL/min/1.73 sq.m. Ages 60-69 = 85 mL/min/1.73 sq.m. Ages 70+ = 75 mL/min/1.73 sq.m. Chronic Kidney Disease: Less than 60 mL/min/1.73 square meters End Stage Renal Disease: Less than 15 mL/min/1.73 square meters Performed By: #### G FR, CRE #### [address] [address] GFR >60 Normal [facility] Comment on above: Result Comment: GFR Population mean for , Non- Americans Ages 20-29 = 116 mL/min/1.73 sq.m. Ages 30-39 = 107 mL/min/1.73 sq.m. Ages 40-49 = 99 mL/min/1.73 sq.m. Ages 50-59 = 93 mL/min/1.73 sq.m. Ages 60-69 = 85 mL/min/1.73 sq.m. Ages 70+ = 75 mL/min/1.73 sq.m. Chronic Kidney Disease: Less than 60 mL/min/1.73 square meters End Stage Renal Disease: Less than 15 mL/min/1.73 square meters Performed By: #### G FR, CRE #### [address] [address] ABO/Rh (Gel)on 05-18-2024 ABO/Rh Interp Positive Invalid Interpretation Code [facility] Comment on above: Performed By: #### A BOGEL, FIB, PLT, APTT, ABSGEL, PRO #### [address] [address] ABS (Gel)on 05-18-2024 ABSC Interp (Gel) Negative Normal [facility] Comment on above: Performed By: #### A BOGEL, FIB, PLT, APTT, ABSGEL, PRO #### [address] [address] APTTon 05-18-2024 aPTT Coag (Bld) [Time] 54.1 s High 25.0-35.0 [facility] Comment on above: Result Comment: For Heparin anticoagulation therapy, the recommended therapeutic range is: 54-77 seconds (APTT Correlation with Anti-Xa therapeutic range of 0.3-0.7 units/ml). PLEASE REFERENCE THE PHARMACY PROTOCOL FOR DOSING. Performed By: #### A BOGEL, FIB, PLT, APTT, ABSGEL, PRO #### [place] [address] aPTT Coag (Bld) [Time] 30.9 s Normal 25.0-35.0 [facility] Comment on above: Result Comment: For Heparin anticoagulation therapy, the recommended therapeutic range is: 54-77 seconds (APTT Correlation with Anti-Xa therapeutic range of 0.3-0.7 units/ml). PLEASE REFERENCE THE PHARMACY PROTOCOL FOR DOSING. Performed By: #### A BOGEL, FIB, PLT, APTT, ABSGEL, PRO #### [place] [address] CREon 05-18-2024 Creatinine [Mass/Vol] 0.90 mg/dL Normal 0.60-1.40 [facility] Comment on above: Result Comment: Test ing performed on Telogis analyzer using enzymatic creatinine methodology. Performed By: #### G FR, CRE #### [place] [address] FIBon 05-18-2024 Fibrinogen 386 mg/dL Normal 250-560 [facility] Comment on above: Performed By: #### A BOGEL, FIB, PLT, APTT, ABSGEL, PRO #### [place] [address] Fibrinogen 451 mg/dL Normal 250-560 [facility] Comment on above: Performed By: #### A BOGEL, FIB, PLT, APTT, ABSGEL, PRO #### [place] [address] LABORATORYOrdered By: SYSTEM SYSTEM on 05-18-2024 aPTT Coag (Bld) [Time] 54.1 s High 25.0 - 35.0 seconds [facility] SS Comment on above: Interpretive Data: F or Heparin anticoagulation therapy, the recommended therapeutic range is: 54-77 seconds (APTT Correlation with Anti-Xa therapeutic range of 0.3-0.7 units/ml). PLEASE REFERENCE THE PHARMACY PROTOCOL FOR DOSING. Creatinine [Mass/Vol] 0.90 mg/dL Normal 0.60 - 1.40 mg/dL AH ADM SS Comment on above: Interpretive Data: T esting performed on W[employer] CH analyzer using enzymatic creatinine methodology. Fibrinogen 386 mg/dL Normal 250 - 560 mg/dL [facility] GFR/1.73 sq M.predicted among blacks MDRD (S/P/Bld) [Vol rate/Area] ml/min/1.73sqm Invalid Interpretation Code [facility] Comment on above: Interpretive Data: GFR Population mean for , Non- Americans Ages 20-29 = 116 mL/min/1.73 sq.m. Ages 30-39 = 107 mL/min/1.73 sq.m. Ages 40-49 = 99 mL/min/1.73 sq.m. Ages 50-59 = 93 mL/min/1.73 sq.m. Ages 60-69 = 85 mL/min/1.73 sq.m. Ages 70+ = 75 mL/min/1.73 sq.m. Chronic Kidney Disease: Less than 60 mL/min/1.73 square meters End Stage Renal Disease: Less than 15 mL/min/1.73 square meters GFR/1.73 sq M.predicted among non-blacks MDRD (S/P/Bld) [Vol rate/Area] ml/min/1.73sqm Invalid Interpretation Code [facility] Comment on above: Interpretive Data: GFR Population mean for , Non- Americans Ages 20-29 = 116 mL/min/1.73 sq.m. Ages 30-39 = 107 mL/min/1.73 sq.m. Ages 40-49 = 99 mL/min/1.73 sq.m. Ages 50-59 = 93 mL/min/1.73 sq.m. Ages 60-69 = 85 mL/min/1.73 sq.m. Ages 70+ = 75 mL/min/1.73 sq.m. Chronic Kidney Disease: Less than 60 mL/min/1.73 square meters End Stage Renal Disease: Less than 15 mL/min/1.73 square meters Platelets (Bld) [#/Vol] 167 103/mcL Normal 150 - 450 10^3/mcL Workflow PT Coag (PPP) [Time] 14.3 s Normal 9.0 - 1 4.4 seconds [facility] Comment on above: Interpretive Data: E ffective 03/22/08, Protime results may be affected by some antibiotics (i.e. Ciprofloxacin, Azithromycin, Bactrim) which may potentiate the action of oral anticoagulants, with further increases in Protime/INR. PT International Ratio 1.2 ratio Invalid Interpretation Code [facility] Comment on above: Interpretive Data: Jeane bonilla [employer] (CHEST, 1991, 102:312S-25S) recommended therapeutic range for oral anticoagulant therapy is: LOW RISK: Prophylaxis of venous thrombosis INR: 2.0-3.0 Treatment of pulmonary embolism 2.0-3.0 Prevention of systemic embolism 2.0-3.0 HIGH RISK: Mechanical prosthetic valves 2.5-3.5 aPTT Coag (Bld) [Time] 30.9 s Normal 25.0 - 35.0 seconds [facility] Comment on above: Interpretive Data: F or Heparin anticoagulation therapy, the recommended therapeutic range is: 54-77 seconds (APTT Correlation with Anti-Xa therapeutic range of 0.3-0.7 units/ml). PLEASE REFERENCE THE PHARMACY PROTOCOL FOR DOSING. Fibrinogen 451 mg/dL Normal 250 - 560 mg[facility]dL [facility] Platelets (Bld) [#/Vol] 216 103/mcL Normal 150 - 450 10^3/mcL [facility] PT Coag (PPP) [Time] 13.0 s Normal 9.0 - 1 4.4 seconds [facility] Comment on above: Interpretive Data: E ffective 03/22/08, Protime results may be affected by some antibiotics (i.e. Ciprofloxacin, Azithromycin, Bactrim) which may potentiate the action of oral anticoagulants, with further increases in Protime/INR. PT International Ratio 1.1 ratio Invalid Interpretation Code [facility] Comment on above: Interpretive Data: Jeane bonilla [employer] (CHEST, 1991, 102:312S-25S) recommended therapeutic range for oral anticoagulant therapy is: LOW RISK: Prophylaxis of venous thrombosis INR: 2.0-3.0 Treatment of pulmonary embolism 2.0-3.0 Prevention of systemic embolism 2.0-3.0 HIGH RISK: Mechanical prosthetic valves 2.5-3.5 LABORATORYOrdered By: Justin Sanchez on 05-18-2024 ABO and Rh group Nom (Bld) Blood group A Rh(D) positive Invalid Interpretation Code AH BB Auto SS Blood group antibody screen Ql Negative ABSC (05/18/24 6:13 AM) Normal AH BB Auto SS PLTon 05-18-2024 Platelet 167 10 3/mcL Normal 150-450 [facility] Comment on above: Performed By: #### A BOGEL, FIB, PLT, APTT, ABSGEL, PRO #### [facility] [address] [place] [id number] Platelet 216 10 3/mcL Normal 150-450 [facility] Comment on above: Performed By: #### A BOGEL, FIB, PLT, APTT, ABSGEL, PRO #### [facility] [address] [place] [id number] PROon 05-18-2024 INR Coag (PPP) [Relative time] 1.2 {INR} Normal [facility] Comment on above: Result Comment: [employer] (CHEST, 1992, 102:312S-25S) recommended therapeutic range for oral anticoagulant therapy is: LOW RISK: Prophylaxis of venous thrombosis INR: 2.0-3.0 Treatment of pulmonary embolism 2.0-3.0 Prevention of systemic embolism 2.0-3.0 HIGH RISK: Mechanical prosthetic valves 2.5-3.5 Performed By: #### A BOGEL, FIB, PLT, APTT, ABSGEL, PRO #### [facility] [address] [place] [phone] PT Coag (PPP) [Time] 14.3 s Normal 9.0-14.4 [facility] MA[facility] Comment on above: Result Comment: Effe ctive 03/22/08, Protime results may be affected by some antibiotics (i.e. Ciprofloxacin, Azithromycin, Bactrim) which may potentiate the action of oral anticoagulants, with further increases in Protime/INR. Performed By: #### A BOGEL, FIB, PLT, APTT, ABSGEL, PRO #### [facility] [address] [place] [address] INR Coag (PPP) [Relative time] 1.1 {INR} Normal [facility] Comment on above: Result Comment: [employer] (CHEST, 1991, 102:312S-25S) recommended therapeutic range for oral anticoagulant therapy is: LOW RISK: Prophylaxis of venous thrombosis INR: 2.0-3.0 Treatment of pulmonary embolism 2.0-3.0 Prevention of systemic embolism 2.0-3.0 HIGH RISK: Mechanical prosthetic valves 2.5-3.5 Performed By: #### A BOGEL, FIB, PLT, APTT, ABSGEL, PRO #### [address] [address] PT Coag (PPP) [Time] 13.0 s Normal 9.0-14.4 [facility] MA[facility] Comment on above: Result Comment: Effe ctive 03/22/08, Protime results may be affected by some antibiotics (i.e. Ciprofloxacin, Azithromycin, Bactrim) which may potentiate the action of oral anticoagulants, with further increases in Protime/INR. Performed By: #### A BOGEL, FIB, PLT, APTT, ABSGEL, PRO #### [address] [address] .Auto Diffon 05-11-2024 Basophil, Absolute 0.0 10 3/mcL Normal 0.0-0.3 [facility] ([place]) Comment on above: Performed By: #### P RO, CBC, GFR, ADIFF, ANEU, CMP #### [address] [address] Basophils/100 WBC (Bld) 0.4 % Normal 0.0-2.5 A [facility] ([place]) Comment on above: Performed By: #### P RO, CBC, GFR, ADIFF, ANEU, CMP #### [address] [address] Eosinophil, Absolute 0.2 10 3/mcL Normal 0.0-0.7 [facility] ([place]) Comment on above: Performed By: #### P RO, CBC, GFR, ADIFF, ANEU, CMP #### [address] [address] Eosinophils/100 WBC (Bld) 2.4 % Normal 0.0-6.0 [facility] ([place]) Comment on above: Performed By: #### P RO, CBC, GFR, ADIFF, ANEU, CMP #### [address] [address] Lymphocyte, Absolute 1.4 10 3/mcL Normal 0.9-4.3 [facility] ([place]) Comment on above: Performed By: #### P RO, CBC, GFR, ADIFF, ANEU, CMP #### [address] [address] Lymphocytes/100 WBC (Bld) 20.6 % Normal 20.0-40.0 [facility] ([place]) Comment on above: Performed By: #### P RO, CBC, GFR, ADIFF, ANEU, CMP #### [address] [address] Monocyte, Absolute 0.8 10 3/mcL Normal 0.1-1.4 [facility] ([place]) Comment on above: Performed By: #### P RO, CBC, GFR, ADIFF, ANEU, CMP #### [address] [address] Monocytes/100 WBC (Bld) 11.5 % Normal 2.0-13.0 [facility] ([place]) Comment on above: Performed By: #### P RO, CBC, GFR, ADIFF, ANEU, CMP #### [address] [address] Neutrophils/100 WBC (Bld) 65.1 % Normal 50.0-75.0 [facility] ([place]) Comment on above: Performed By: #### P RO, CBC, GFR, ADIFF, ANEU, CMP #### [address] [address] .GFRon 05-11-2024 GFR >60 Normal [facility] ([place]) Comment on above: Result Comment: GFR Population mean for , Non- Americans Ages 20-29 = 116 mL/min/1.73 sq.m. Ages 30-39 = 107 mL/min/1.73 sq.m. Ages 40-49 = 99 mL/min/1.73 sq.m. Ages 50-59 = 93 mL/min/1.73 sq.m. Ages 60-69 = 85 mL/min/1.73 sq.m. Ages 70+ = 75 mL/min/1.73 sq.m. Chronic Kidney Disease: Less than 60 mL/min/1.73 square meters End Stage Renal Disease: Less than 15 mL/min/1.73 square meters Performed By: #### P RO, CBC, GFR, ADIFF, ANEU, CMP #### [address] [address] GFR Non- >60 Normal [facility] ([place]) Comment on above: Result Comment: GFR Population mean for , Non- Americans Ages 20-29 = 116 mL/min/1.73 sq.m. Ages 30-39 = 107 mL/min/1.73 sq.m. Ages 40-49 = 99 mL/min/1.73 sq.m. Ages 50-59 = 93 mL/min/1.73 sq.m. Ages 60-69 = 85 mL/min/1.73 sq.m. Ages 70+ = 75 mL/min/1.73 sq.m. Chronic Kidney Disease: Less than 60 mL/min/1.73 square meters End Stage Renal Disease: Less than 15 mL/min/1.73 square meters Performed By: #### P RO, CBC, GFR, ADIFF, ANEU, CMP #### [address] [address] .NEUABSon 05-11-2024 Neutrophil, Absolute 4.5 10 3/mcL Normal 2.3-8.1 [facility] ([place]) Comment on above: Performed By: #### P RO, CBC, GFR, ADIFF, ANEU, CMP #### [address] [address] ABO/Rh (Gel)on 05-11-2024 ABO/Rh Interp Positive Invalid Interpretation Code [facility] ([place]) Comment on above: Performed By: #### P RO, CBC, GFR, ADIFF, ANEU, CMP #### [address] [address] ABS (Gel)on 05-11-2024 ABSC Interp (Gel) Negative Normal [facility] ([place]) Comment on above: Performed By: #### P RO, CBC, GFR, ADIFF, ANEU, CMP #### [address] [address] CBCon 05-11-2024 Erythrocyte distribution width (RBC) [Ratio] 12.8 % Normal 11.5-15.5 [facility] ([place]) Comment on above: Performed By: #### P RO, CBC, GFR, ADIFF, ANEU, CMP #### [place] [address] Hematocrit (Bld) [Volume fraction] 37.5 % Low 40.0-52.0 [facility] ([place]) Comment on above: Performed By: #### P RO, CBC, GFR, ADIFF, ANEU, CMP #### [place] [id number] Hgb 13.4 G/dL Normal 13.0-17.5 [facility] ([place]) Comment on above: Performed By: #### P RO, CBC, GFR, ADIFF, ANEU, CMP #### [place] [id number] MCH (RBC) [Entitic mass] 32.7 pg Normal 27.0-33.0 [facility] ([place]) Comment on above: Performed By: #### P RO, CBC, GFR, ADIFF, ANEU, CMP #### [place] [address] MCHC 35.8 G/dL Normal 32.0-36.0 [facility] ([place]) Comment on above: Performed By: #### P RO, CBC, GFR, ADIFF, ANEU, CMP #### [place] [id number] MCV (RBC) [Entitic vol] 91.1 fL Normal 81.0-100.0 [facility] ([place]) Comment on above: Performed By: #### P RO, CBC, GFR, ADIFF, ANEU, CMP #### [place] [id number] Platelet 195 10 3/mcL Normal 150-450 [facility] ([place]) Comment on above: Performed By: #### P RO, CBC, GFR, ADIFF, ANEU, CMP #### [place] [id number] Platelet mean volume (Bld) [Entitic vol] 7.5 fL Normal 6.4-10.5 [facility] ([place]) Comment on above: Performed By: #### P RO, CBC, GFR, ADIFF, ANEU, CMP #### [address] [address] RBC 4.12 10 6/mcL Low 4.50-6.00 [facility] ([place]) Comment on above: Performed By: #### P RO, CBC, GFR, ADIFF, ANEU, CMP #### [place] [address] WBC 6.9 10 3/mcL Normal 4.5-10.8 [facility] ([place]) Comment on above: Performed By: #### P RO, CBC, GFR, ADIFF, ANEU, CMP #### [place] [address] CMPon 05-11-2024 Albumin Level 3.7 G/dL Normal 3.2-4.8 [facility] ([place]) Comment on above: Performed By: #### P RO, CBC, GFR, ADIFF, ANEU, CMP #### [place] [address] Albumin/Globulin [Mass ratio] 1.1 {ratio} Normal 0.9-1.6 [facility] ([place]) Comment on above: Performed By: #### P RO, CBC, GFR, ADIFF, ANEU, CMP #### [address] [address] ALP [Catalytic activity/Vol] 111 U/L Normal 38-126 [facility] ([place]) Comment on above: Performed By: #### P RO, CBC, GFR, ADIFF, ANEU, CMP #### [place] [id number] ALT [Catalytic activity/Vol] 28 U/L Normal 12-55 [facility] ([place]) Comment on above: Performed By: #### P RO, CBC, GFR, ADIFF, ANEU, CMP #### [place] [id number] AST [Catalytic activity/Vol] 18 U/L Normal 8-34 [facility] ([place]) Comment on above: Performed By: #### P RO, CBC, GFR, ADIFF, ANEU, CMP #### [place] [id number] Bili Total 0.80 mg/dL Normal 0.20-1.20 [facility] ([place]) Comment on above: Result Comment: Use of this assay is not recommended for patients undergoing treatment with eltrombopag due to the potential for falsely elevated results. Performed By: #### P RO, CBC, GFR, ADIFF, ANEU, CMP #### [place] [address] BUN/Creatinine Ratio 14.8 ratio Normal 10.0-22.0 [facility] ([place]) Comment on above: Performed By: #### P RO, CBC, GFR, ADIFF, ANEU, CMP #### [place] [address] Calcium [Mass/Vol] 9.6 mg/dL Normal 8.7-10.4 [facility] ([place]) Comment on above: Performed By: #### P RO, CBC, GFR, ADIFF, ANEU, CMP #### [place] [address] Chloride [Moles/Vol] 105 mmol/L Normal 98-110 [facility] ([place]) Comment on above: Performed By: #### P RO, CBC, GFR, ADIFF, ANEU, CMP #### [place] [id number] CO2 [Moles/Vol] 29 mmol/L Normal 22-32 [facility] ([place]) Comment on above: Performed By: #### P RO, CBC, GFR, ADIFF, ANEU, CMP #### [place] [id number] Creatinine [Mass/Vol] 0.88 mg/dL Normal 0.60-1.40 [facility] ([place]) Comment on above: Result Comment: Test ing performed on Telogis analyzer using enzymatic creatinine methodology. Performed By: #### P RO, CBC, GFR, ADIFF, ANEU, CMP #### [place] [id number] Electrolyte Balance 6.0 mEq/L Normal 4.0-15.0 [facility] ([place]) Comment on above: Performed By: #### P RO, CBC, GFR, ADIFF, ANEU, CMP #### [address] [address] Globulin 3.5 G/dL Normal 1.5-3.8 [facility] ([place]) Comment on above: Performed By: #### P RO, CBC, GFR, ADIFF, ANEU, CMP #### [place] [id number] Glucose [Mass/Vol] 108 mg/dL Normal 82-115 [facility] ([place]) Comment on above: Performed By: #### P RO, CBC, GFR, ADIFF, ANEU, CMP #### [place] [id number] Potassium [Moles/Vol] 3.6 mmol/L Normal 3.5-5.0 [facility] ([place]) Comment on above: Performed By: #### P RO, CBC, GFR, ADIFF, ANEU, CMP #### [place] [id number] Sodium [Moles/Vol] 140 mmol/L Normal 136-145 [facility] ([place]) Comment on above: Performed By: #### P RO, CBC, GFR, ADIFF, ANEU, CMP #### [place] [address] Total Protein 7.2 G/dL Normal 5.7-8.2 [facility] ([place]) Comment on above: Result Comment: No te - New Reference Range in effect 20 Performed By: #### P RO, CBC, GFR, ADIFF, ANEU, CMP #### [place] [address] Urea nitrogen [Mass/Vol] 13.0 mg/dL Normal 8.0-22.0 [facility] ([place]) Comment on above: Performed By: #### P RO, CBC, GFR, ADIFF, ANEU, CMP #### [place] [address] LABORATORYOrdered By: Justin Sanchez on 05-11-2024 ABO and Rh group Nom (Bld) Blood group A Rh(D) positive Invalid Interpretation Code AH BB Auto SS Blood group antibody screen Ql Negative ABSC (05/11/24 11:02 AM) Normal AH BB Auto SS LABORATORYOrdered By: SYSTEM SYSTEM on 05-11-2024 Albumin BCP dye [Mass/Vol] 3.7 G/dL Normal 3.2 - 4.8 G/dL AH ADM SS Albumin/Globulin [Mass ratio] 1.1 {ratio} Normal 0.9 - 1.6 ratio AH ADM SS ALP [Catalytic activity/Vol] 111 U/L Normal 38 - 126 U/L AH ADM SS ALT No additional P-5'-P [Catalytic activity/Vol] 28 U/L Normal 12 - 55 U/L AH ADM SS AST [Catalytic activity/Vol] 18 U/L Normal 8 - 34 U/L AH ADM SS Basophils (Bld) [#/Vol] 0.0 103/mcL Normal 0.0 - 0.3 10^3/mcL AH Workflow SS Basophils/100 WBC (Bld) 0.4 % Normal 0.0 - 2.5 % AH Workflow SS Bilirubin [Mass/Vol] 0.80 mg/dL Normal 0.20 - 1.20 mg/dL AH ADM SS Comment on above: Interpretive Data: U se of this assay is not recommended for patients undergoing treatment with eltrombopag due to the potential for falsely elevated results. Calcium [Mass/Vol] 9.6 mg/dL Normal 8.7 - 10. 4 mg/dL AH ADM SS Chloride [Moles/Vol] 105 mmol/L Normal 98 - 11 0 mEq/L AH ADM SS CO2 [Moles/Vol] 29 mmol/L Normal 22 - 32 mEq/L AH ADM SS Creatinine [Mass/Vol] 0.88 mg/dL Normal 0.60 - 1.40 mg/dL AH ADM SS Comment on above: Interpretive Data: T esting performed on Telogis analyzer using enzymatic creatinine methodology. Electrolyte Balance 6.0 mEq/L Normal 4.0 - 15 .0 mEq/L AH ADM SS Eosinophils (Bld) [#/Vol] 0.2 103/mcL Normal 0.0 - 0.7 10^3/mcL AH Workflow SS Eosinophils/100 WBC (Bld) 2.4 % Normal 0.0 - 6.0 % Workflow SS Erythrocyte distribution width (RBC) [Ratio] 12.8 % Normal 11.5 - 15.5 % Workflow SS GFR/1.73 sq M.predicted among blacks MDRD (S/P/Bld) [Vol rate/Area] ml/min/1.73sqm Invalid Interpretation Code Chemistry S Comment on above: Interpretive Data: GFR Population mean for , Non- Americans Ages 20-29 = 116 mL/min/1.73 sq.m. Ages 30-39 = 107 mL/min/1.73 sq.m. Ages 40-49 = 99 mL/min/1.73 sq.m. Ages 50-59 = 93 mL/min/1.73 sq.m. Ages 60-69 = 85 mL/min/1.73 sq.m. Ages 70+ = 75 mL/min/1.73 sq.m. Chronic Kidney Disease: Less than 60 mL/min/1.73 square meters End Stage Renal Disease: Less than 15 mL/min/1.73 square meters GFR/1.73 sq M.predicted among non-blacks MDRD (S/P/Bld) [Vol rate/Area] ml/min/1.73sqm Invalid Interpretation Code Chemistry S Comment on above: Interpretive Data: GFR Population mean for , Non- Americans Ages 20-29 = 116 mL/min/1.73 sq.m. Ages 30-39 = 107 mL/min/1.73 sq.m. Ages 40-49 = 99 mL/min/1.73 sq.m. Ages 50-59 = 93 mL/min/1.73 sq.m. Ages 60-69 = 85 mL/min/1.73 sq.m. Ages 70+ = 75 mL/min/1.73 sq.m. Chronic Kidney Disease: Less than 60 mL/min/1.73 square meters End Stage Renal Disease: Less than 15 mL/min/1.73 square meters Globulin 3.5 G/dL Normal 1.5 - 3.8 G/dL ADM SS Glucose [Mass/Vol] 108 mg/dL Normal 82 - 115 mg/dL ADM SS Hematocrit (Bld) [Volume fraction] 37.5 % Low 40.0 - 52.0 % AH Workflow SS Hemoglobin (Bld) [Mass/Vol] 13.4 G/dL Normal 13.0 - 17.5 G/dL Workflow SS Lymphocytes (Bld) [#/Vol] 1.4 103/mcL Normal 0.9 - 4.3 10^3/mcL AH Workflow SS Lymphocytes/100 WBC (Bld) 20.6 % Normal 20.0 - 40.0 % Workflow SS MCH (RBC) [Entitic mass] 32.7 pg Normal 27.0 - 33.0 pg Workflow SS MCHC 35.8 G/dL Normal 32.0 - 36.0 G/dL Workflow SS MCV (RBC) [Entitic vol] 91.1 fL Normal 81.0 - 100.0 fL Workflow SS Monocytes (Bld) [#/Vol] 0.8 103/mcL Normal 0.1 - 1.4 10^3/mcL Workflow SS Monocytes/100 WBC (Bld) 11.5 % Normal 2.0 - 13.0 % Workflow SS Natriuretic peptide.B prohormone N-Terminal IA [Mass/Vol] 273 pg/mL Normal 0 - 900 pg/mL ADM SS Neutrophils (Bld) [#/Vol] 4.5 103/mcL Normal 2.3 - 8.1 10^3/mcL Workflow SS Neutrophils/100 WBC (Bld) 65.1 % Normal 50.0 - 75.0 % Workflow SS Platelet mean volume (Bld) [Entitic vol] 7.5 fL Normal 6.4 - 10.5 fL Workflow SS Platelets (Bld) [#/Vol] 195 103/mcL Normal 150 - 450 10^3/mcL Workflow SS Potassium [Moles/Vol] 3.6 mmol/L Normal 3.5 - 5.0 mEq/L ADM SS Protein [Mass/Vol] 7.2 G/dL Normal 5.7 - 8.2 G/dL ADM SS Comment on above: Interpretive Data: * *Note - New Reference Range in effect 20 PT Coag (PPP) [Time] 15.0 s High 9.0 - 1 4.4 seconds [facility] SS Comment on above: Interpretive Data: E ffective 03/22/08, Protime results may be affected by some antibiotics (i.e. Ciprofloxacin, Azithromycin, Bactrim) which may potentiate the action of oral anticoagulants, with further increases in Protime/INR. PT International Ratio 1.3 ratio Invalid Interpretation Code [facility] SS Comment on above: Interpretive Data: Jeane bonilla [employer] (CHEST, 1991, 102:[id number]) recommended therapeutic range for oral anticoagulant therapy is: LOW RISK: Prophylaxis of venous thrombosis INR: 2.0-3.0 Treatment of pulmonary embolism 2.0-3.0 Prevention of systemic embolism 2.0-3.0 HIGH RISK: Mechanical prosthetic valves 2.5-3.5 RBC (Bld) [#/Vol] 4.12 106/mcL Low 4.50 - 6.0 0 10^6/mcL Workflow SS Sodium [Moles/Vol] 140 mmol/L Normal 136 - 145 mEq/L ADM SS Urea nitrogen [Mass/Vol] 13.0 mg/dL Normal 8.0 - 22.0 mg/dL ADM SS Urea nitrogen/Creatinine [Mass ratio] 14.8 ratio Normal 10.0 - 22.0 ratio ADM SS WBC (Bld) [#/Vol] 6.9 103/mcL Normal 4.5 - 10.8 10^3/mcL Workflow SS PBNPon 05-11-2024 Natriuretic peptide B (Bld) [Mass/Vol] 273 pg/mL Normal 0-900 [facility] ([place]) Comment on above: Performed By: #### P RO, CBC, GFR, ADIFF, ANEU, CMP #### [address] [address] PROon 05-11-2024 INR Coag (PPP) [Relative time] 1.3 {INR} Normal [facility] ([place]) Comment on above: Result Comment: [employer] (CHEST, 1991, 102:[id number]) recommended therapeutic range for oral anticoagulant therapy is: LOW RISK: Prophylaxis of venous thrombosis INR: 2.0-3.0 Treatment of pulmonary embolism 2.0-3.0 Prevention of systemic embolism 2.0-3.0 HIGH RISK: Mechanical prosthetic valves 2.5-3.5 Performed By: #### P RO, CBC, GFR, ADIFF, ANEU, CMP #### [address] [address] PT Coag (PPP) [Time] 15.0 s High 9.0-14.4 [facility] ([place]) Comment on above: Result Comment: Effe ctive 03/22/08, Protime results may be affected by some antibiotics (i.e. Ciprofloxacin, Azithromycin, Bactrim) which may potentiate the action of oral anticoagulants, with further increases in Protime/INR. Performed By: #### P RO, CBC, GFR, ADIFF, ANEU, CMP #### [address] [address] .Auto Diffon 01-15-2024 Basophil, Absolute 0.0 10 3/mcL Normal 0.0-0.3 [facility] ([place]) Comment on above: Performed By: #### P RO, CBC, GFR, ADIFF, ANEU, CMP #### [address] [address] Basophils/100 WBC (Bld) 0.4 % Normal 0.0-2.5 [facility] ([place]) Comment on above: Performed By: #### P RO, CBC, GFR, ADIFF, ANEU, CMP #### [address] [address] Eosinophil, Absolute 0.3 10 3/mcL Normal 0.0-0.7 [facility] ([place]) Comment on above: Performed By: #### P RO, CBC, GFR, ADIFF, ANEU, CMP #### [address] [address] Eosinophils/100 WBC (Bld) 4.0 % Normal 0.0-6.0 [facility] ([place]) Comment on above: Performed By: #### P RO, CBC, GFR, ADIFF, ANEU, CMP #### [address] [address] Lymphocyte, Absolute 1.2 10 3/mcL Normal 0.9-4.3 [facility] ([place]) Comment on above: Performed By: #### P RO, CBC, GFR, ADIFF, ANEU, CMP #### [address] [address] Lymphocytes/100 WBC (Bld) 19.5 % Low 20.0-40.0 [facility] ([place]) Comment on above: Performed By: #### P RO, CBC, GFR, ADIFF, ANEU, CMP #### [address] [address] Monocyte, Absolute 0.8 10 3/mcL Normal 0.1-1.4 [facility] ([place]) Comment on above: Performed By: #### P RO, CBC, GFR, ADIFF, ANEU, CMP #### [address] [address] Monocytes/100 WBC (Bld) 13.3 % High 2.0-13.0 [facility] ([place]) Comment on above: Performed By: #### P RO, CBC, GFR, ADIFF, ANEU, CMP #### [address] [address] Neutrophils/100 WBC (Bld) 62.8 % Normal 50.0-75.0 [facility] ([place]) Comment on above: Performed By: #### P RO, CBC, GFR, ADIFF, ANEU, CMP #### [address] [address] .GFRon 01-15-2024 GFR >60 Normal [facility] ([place]) Comment on above: Result Comment: GFR Population mean for , Non- Americans Ages 20-29 = 116 mL/min/1.73 sq.m. Ages 30-39 = 107 mL/min/1.73 sq.m. Ages 40-49 = 99 mL/min/1.73 sq.m. Ages 50-59 = 93 mL/min/1.73 sq.m. Ages 60-69 = 85 mL/min/1.73 sq.m. Ages 70+ = 75 mL/min/1.73 sq.m. Chronic Kidney Disease: Less than 60 mL/min/1.73 square meters End Stage Renal Disease: Less than 15 mL/min/1.73 square meters Performed By: #### P RO, CBC, GFR, ADIFF, ANEU, CMP #### [address] [address] GFR Non- >60 Normal [facility] ([place]) Comment on above: Result Comment: GFR Population mean for , Non- Americans Ages 20-29 = 116 mL/min/1.73 sq.m. Ages 30-39 = 107 mL/min/1.73 sq.m. Ages 40-49 = 99 mL/min/1.73 sq.m. Ages 50-59 = 93 mL/min/1.73 sq.m. Ages 60-69 = 85 mL/min/1.73 sq.m. Ages 70+ = 75 mL/min/1.73 sq.m. Chronic Kidney Disease: Less than 60 mL/min/1.73 square meters End Stage Renal Disease: Less than 15 mL/min/1.73 square meters Performed By: #### P RO, CBC, GFR, ADIFF, ANEU, CMP #### [address] [address] .NEUABSon 01-15-2024 Neutrophil, Absolute 4.0 10 3/mcL Normal 2.3-8.1 [facility] ([place]) Comment on above: Performed By: #### P RO, CBC, GFR, ADIFF, ANEU, CMP #### [address] [address] BMPon 01-15-2024 BUN/Creatinine Ratio 16.5 ratio Normal 10.0-22.0 [facility] ([place]) Comment on above: Performed By: #### P RO, CBC, GFR, ADIFF, ANEU, CMP #### [address] [address] Calcium [Mass/Vol] 8.0 mg/dL Low 8.7-10.4 [facility] ([place]) Comment on above: Performed By: #### P RO, CBC, GFR, ADIFF, ANEU, CMP #### [address] [address] Chloride [Moles/Vol] 105 mmol/L Normal 98-110 [facility] ([place]) Comment on above: Performed By: #### P RO, CBC, GFR, ADIFF, ANEU, CMP #### [address] [address] CO2 [Moles/Vol] 30 mmol/L Normal 22-32 [facility] ([place]) Comment on above: Performed By: #### P RO, CBC, GFR, ADIFF, ANEU, CMP #### [address] [address] Creatinine [Mass/Vol] 0.85 mg/dL Normal 0.60-1.40 [facility] ([place]) Comment on above: Performed By: #### P RO, CBC, GFR, ADIFF, ANEU, CMP #### [place] [id number] Electrolyte Balance 5.0 mEq/L Normal 4.0-15.0 [facility] ([place]) Comment on above: Performed By: #### P RO, CBC, GFR, ADIFF, ANEU, CMP #### [place] [id number] Glucose [Mass/Vol] 110 mg/dL Normal 82-115 [facility] ([place]) Comment on above: Performed By: #### P RO, CBC, GFR, ADIFF, ANEU, CMP #### [place] [address] Potassium [Moles/Vol] 4.0 mmol/L Normal 3.5-5.0 [facility] ([place]) Comment on above: Performed By: #### P RO, CBC, GFR, ADIFF, ANEU, CMP #### [address] [address] Sodium [Moles/Vol] 140 mmol/L Normal 136-145 [facility] ([place]) Comment on above: Performed By: #### P RO, CBC, GFR, ADIFF, ANEU, CMP #### [address] [address] Urea nitrogen [Mass/Vol] 14.0 mg/dL Normal 8.0-22.0 [facility] ([place]) Comment on above: Performed By: #### P RO, CBC, GFR, ADIFF, ANEU, CMP #### [address] [address] CBCon 01-15-2024 Erythrocyte distribution width (RBC) [Ratio] 12.5 % Normal 11.5-15.5 [facility] ([place]) Comment on above: Performed By: #### P RO, CBC, GFR, ADIFF, ANEU, CMP #### [place] [address] Hematocrit (Bld) [Volume fraction] 34.8 % Low 40.0-52.0 [facility] ([place]) Comment on above: Performed By: #### P RO, CBC, GFR, ADIFF, ANEU, CMP #### [place] [address] Hgb 12.3 G/dL Low 13.0-17.5 [facility] ([place]) Comment on above: Performed By: #### P RO, CBC, GFR, ADIFF, ANEU, CMP #### [place] [address] MCH (RBC) [Entitic mass] 32.9 pg Normal 27.0-33.0 [facility] ([place]) Comment on above: Performed By: #### P RO, CBC, GFR, ADIFF, ANEU, CMP #### [place] [address] MCHC 35.4 G/dL Normal 32.0-36.0 [facility] ([place]) Comment on above: Performed By: #### P RO, CBC, GFR, ADIFF, ANEU, CMP #### [place] [address] MCV (RBC) [Entitic vol] 93.0 fL Normal 81.0-100.0 [facility] ([place]) Comment on above: Performed By: #### P RO, CBC, GFR, ADIFF, ANEU, CMP #### [place] [address] Platelet 182 10 3/mcL Normal 150-450 [facility] ([place]) Comment on above: Performed By: #### P RO, CBC, GFR, ADIFF, ANEU, CMP #### [place] [address] Platelet mean volume (Bld) [Entitic vol] 7.1 fL Normal 6.4-10.5 [facility] ([place]) Comment on above: Performed By: #### P RO, CBC, GFR, ADIFF, ANEU, CMP #### [place] [id number] [address] [place] [id number] RBC 3.75 10 6/mcL Low 4.50-6.00 [facility] ([place]) Comment on above: Performed By: #### P RO, CBC, GFR, ADIFF, ANEU, CMP #### [address] [address] WBC 6.3 10 3/mcL Normal 4.5-10.8 [facility] ([place]) Comment on above: Performed By: #### P RO, CBC, GFR, ADIFF, ANEU, CMP #### [address] [address] LABORATORYOrdered By: SYSTEM SYSTEM on 01-15-2024 Basophils (Bld) [#/Vol] 0.0 103/mcL Normal 0.0 - 0.3 10^3/mcL Workflow SS Basophils/100 WBC (Bld) 0.4 % Normal 0.0 - 2.5 % Workflow SS Calcium [Mass/Vol] 8.0 mg/dL Low 8.7 - 10. 4 mg/dL ADM SS Chloride [Moles/Vol] 105 mmol/L Normal 98 - 11 0 mEq/L ADM SS CO2 [Moles/Vol] 30 mmol/L Normal 22 - 32 mEq/L ADM SS Creatinine [Mass/Vol] 0.85 mg/dL Normal 0.60 - 1.40 mg/dL ADM SS Electrolyte Balance 5.0 mEq/L Normal 4.0 - 15 .0 mEq/L ADM SS Eosinophils (Bld) [#/Vol] 0.3 103/mcL Normal 0.0 - 0.7 10^3/mcL Workflow SS Eosinophils/100 WBC (Bld) 4.0 % Normal 0.0 - 6.0 % Workflow SS Erythrocyte distribution width (RBC) [Ratio] 12.5 % Normal 11.5 - 15.5 % Workflow SS GFR/1.73 sq M.predicted among blacks MDRD (S/P/Bld) [Vol rate/Area] ml/min/1.73sqm Invalid Interpretation Code Chemistry S Comment on above: Interpretive Data: GFR Population mean for , Non- Americans Ages 20-29 = 116 mL/min/1.73 sq.m. Ages 30-39 = 107 mL/min/1.73 sq.m. Ages 40-49 = 99 mL/min/1.73 sq.m. Ages 50-59 = 93 mL/min/1.73 sq.m. Ages 60-69 = 85 mL/min/1.73 sq.m. Ages 70+ = 75 mL/min/1.73 sq.m. Chronic Kidney Disease: Less than 60 mL/min/1.73 square meters End Stage Renal Disease: Less than 15 mL/min/1.73 square meters GFR/1.73 sq M.predicted among non-blacks MDRD (S/P/Bld) [Vol rate/Area] ml/min/1.73sqm Invalid Interpretation Code Chemistry S Comment on above: Interpretive Data: GFR Population mean for , Non- Americans Ages 20-29 = 116 mL/min/1.73 sq.m. Ages 30-39 = 107 mL/min/1.73 sq.m. Ages 40-49 = 99 mL/min/1.73 sq.m. Ages 50-59 = 93 mL/min/1.73 sq.m. Ages 60-69 = 85 mL/min/1.73 sq.m. Ages 70+ = 75 mL/min/1.73 sq.m. Chronic Kidney Disease: Less than 60 mL/min/1.73 square meters End Stage Renal Disease: Less than 15 mL/min/1.73 square meters Glucose [Mass/Vol] 110 mg/dL Normal 82 - 115 mg/dL ADM SS Hematocrit (Bld) [Volume fraction] 34.8 % Low 40.0 - 52.0 % Workflow SS Hemoglobin (Bld) [Mass/Vol] 12.3 G/dL Low 13.0 - 17.5 G/dL Workflow SS Lymphocytes (Bld) [#/Vol] 1.2 103/mcL Normal 0.9 - 4.3 10^3/mcL Workflow SS Lymphocytes/100 WBC (Bld) 19.5 % Low 20.0 - 40.0 % Workflow SS MCH (RBC) [Entitic mass] 32.9 pg Normal 27.0 - 33.0 pg Workflow SS MCHC 35.4 G/dL Normal 32.0 - 36.0 G/dL AH Workflow SS MCV (RBC) [Entitic vol] 93.0 fL Normal 81.0 - 100.0 fL AH Workflow SS Monocytes (Bld) [#/Vol] 0.8 103/mcL Normal 0.1 - 1.4 10^3/mcL AH Workflow SS Monocytes/100 WBC (Bld) 13.3 % High 2.0 - 13.0 % AH Workflow SS Neutrophils (Bld) [#/Vol] 4.0 103/mcL Normal 2.3 - 8.1 10^3/mcL AH Workflow SS Neutrophils/100 WBC (Bld) 62.8 % Normal 50.0 - 75.0 % AH Workflow SS Platelet mean volume (Bld) [Entitic vol] 7.1 fL Normal 6.4 - 10.5 fL AH Workflow SS Platelets (Bld) [#/Vol] 182 103/mcL Normal 150 - 450 10^3/mcL AH Workflow SS Potassium [Moles/Vol] 4.0 mmol/L Normal 3.5 - 5.0 mEq/L AH ADM SS RBC (Bld) [#/Vol] 3.75 106/mcL Low 4.50 - 6.0 0 10^6/mcL AH Workflow SS Sodium [Moles/Vol] 140 mmol/L Normal 136 - 145 mEq/L AH ADM SS Urea nitrogen [Mass/Vol] 14.0 mg/dL Normal 8.0 - 22.0 mg/dL AH ADM SS Urea nitrogen/Creatinine [Mass ratio] 16.5 ratio Normal 10.0 - 22.0 ratio AH ADM SS WBC (Bld) [#/Vol] 6.3 103/mcL Normal 4.5 - 10.8 10^3/mcL AH Workflow SS .Auto Diffon 01-14-2024 Basophil, Absolute 0.0 10 3/mcL Normal 0.0-0.3 [facility] ([place]) Comment on above: Performed By: #### B MP, ADIFF, GFR, CBC, ANEU #### [address] [address] Basophils/100 WBC (Bld) 0.4 % Normal 0.0-2.5 [facility] ([place]) Comment on above: Performed By: #### B MP, ADIFF, GFR, CBC, ANEU #### [address] [address] Eosinophil, Absolute 0.2 10 3/mcL Normal 0.0-0.7 [facility] ([place]) Comment on above: Performed By: #### B MP, ADIFF, GFR, CBC, ANEU #### [address] [address] Eosinophils/100 WBC (Bld) 3.0 % Normal 0.0-6.0 [facility] ([place]) Comment on above: Performed By: #### B MP, ADIFF, GFR, CBC, ANEU #### [address] [address] Lymphocyte, Absolute 1.1 10 3/mcL Normal 0.9-4.3 [facility] ([place]) Comment on above: Performed By: #### B MP, ADIFF, GFR, CBC, ANEU #### [address] [address] Lymphocytes/100 WBC (Bld) 15.0 % Low 20.0-40.0 [facility] ([place]) Comment on above: Performed By: #### B MP, ADIFF, GFR, CBC, ANEU #### [address] [address] Monocyte, Absolute 1.0 10 3/mcL Normal 0.1-1.4 [facility] ([place]) Comment on above: Performed By: #### B MP, ADIFF, GFR, CBC, ANEU #### [address] [address] Monocytes/100 WBC (Bld) 13.7 % High 2.0-13.0 [facility] ([place]) Comment on above: Performed By: #### B MP, ADIFF, GFR, CBC, ANEU #### [address] [address] Neutrophils/100 WBC (Bld) 67.9 % Normal 50.0-75.0 [facility] ([place]) Comment on above: Performed By: #### B MP, ADIFF, GFR, CBC, ANEU #### [address] [address] .GFRon 01-14-2024 GFR >60 Normal [facility] ([place]) Comment on above: Result Comment: GFR Population mean for , Non- Americans Ages 20-29 = 116 mL/min/1.73 sq.m. Ages 30-39 = 107 mL/min/1.73 sq.m. Ages 40-49 = 99 mL/min/1.73 sq.m. Ages 50-59 = 93 mL/min/1.73 sq.m. Ages 60-69 = 85 mL/min/1.73 sq.m. Ages 70+ = 75 mL/min/1.73 sq.m. Chronic Kidney Disease: Less than 60 mL/min/1.73 square meters End Stage Renal Disease: Less than 15 mL/min/1.73 square meters Performed By: #### P RO, CBC, GFR, ADIFF, ANEU, CMP #### [address] [address] GFR Non- >60 Normal [facility] ([place]) Comment on above: Result Comment: GFR Population mean for , Non- Americans Ages 20-29 = 116 mL/min/1.73 sq.m. Ages 30-39 = 107 mL/min/1.73 sq.m. Ages 40-49 = 99 mL/min/1.73 sq.m. Ages 50-59 = 93 mL/min/1.73 sq.m. Ages 60-69 = 85 mL/min/1.73 sq.m. Ages 70+ = 75 mL/min/1.73 sq.m. Chronic Kidney Disease: Less than 60 mL/min/1.73 square meters End Stage Renal Disease: Less than 15 mL/min/1.73 square meters Performed By: #### P RO, CBC, GFR, ADIFF, ANEU, CMP #### [address] [address] .NEUABSon 01-14-2024 Neutrophil, Absolute 4.9 10 3/mcL Normal 2.3-8.1 [facility] ([place]) Comment on above: Performed By: #### B MP, ADIFF, GFR, CBC, ANEU #### [address] [address] BMPon 01-14-2024 BUN/Creatinine Ratio 14.3 ratio Normal 10.0-22.0 [facility] ([place]) Comment on above: Performed By: #### B MP, ADIFF, GFR, CBC, ANEU #### [address] [address] Calcium [Mass/Vol] 8.5 mg/dL Low 8.7-10.4 [facility] ([place]) Comment on above: Performed By: #### B MP, ADIFF, GFR, CBC, ANEU #### [place] [id number] Chloride [Moles/Vol] 107 mmol/L Normal 98-110 [facility] ([place]) Comment on above: Performed By: #### B MP, ADIFF, GFR, CBC, ANEU #### [address] [address] CO2 [Moles/Vol] 26 mmol/L Normal 22-32 [facility] ([place]) Comment on above: Performed By: #### B MP, ADIFF, GFR, CBC, ANEU #### [place] [id number] Creatinine [Mass/Vol] 0.84 mg/dL Normal 0.60-1.40 [facility] ([place]) Comment on above: Performed By: #### B MP, ADIFF, GFR, CBC, ANEU #### [address] [address] Electrolyte Balance 5.0 mEq/L Normal 4.0-15.0 [facility] ([place]) Comment on above: Performed By: #### B MP, ADIFF, GFR, CBC, ANEU #### [address] [address] Glucose [Mass/Vol] 108 mg/dL Normal 82-115 [facility] ([place] Comment on above: Performed By: #### B MP, ADIFF, GFR, CBC, ANEU #### [address] [address] Potassium [Moles/Vol] 3.6 mmol/L Normal 3.5-5.0 [facility] ([place]) Comment on above: Performed By: #### B MP, ADIFF, GFR, CBC, ANEU #### [address] [address] Sodium [Moles/Vol] 138 mmol/L Normal 136-145 [facility] ([place] Comment on above: Performed By: #### B MP, ADIFF, GFR, CBC, ANEU #### [place] [address] Urea nitrogen [Mass/Vol] 12.0 mg/dL Normal 8.0-22.0 [facility] ([place]) Comment on above: Performed By: #### B MP, ADIFF, GFR, CBC, ANEU #### [place] [address] CBCon 01-14-2024 Erythrocyte distribution width (RBC) [Ratio] 12.8 % Normal 11.5-15.5 [facility] ([place]) Comment on above: Performed By: #### B MP, ADIFF, GFR, CBC, ANEU #### [place] [address] Hematocrit (Bld) [Volume fraction] 37.2 % Low 40.0-52.0 [facility] ([place]) Comment on above: Performed By: #### B MP, ADIFF, GFR, CBC, ANEU #### [place] [address] Hgb 12.8 G/dL Low 13.0-17.5 [facility] ([place]) Comment on above: Performed By: #### B MP, ADIFF, GFR, CBC, ANEU #### [place] [id number] MCH (RBC) [Entitic mass] 32.2 pg Normal 27.0-33.0 [facility] ([place]) Comment on above: Performed By: #### B MP, ADIFF, GFR, CBC, ANEU #### [place] [address] MCHC 34.3 G/dL Normal 32.0-36.0 [facility] ([place]) Comment on above: Performed By: #### B MP, ADIFF, GFR, CBC, ANEU #### [place] [id number] MCV (RBC) [Entitic vol] 94.1 fL Normal 81.0-100.0 [facility] ([place]) Comment on above: Performed By: #### B MP, ADIFF, GFR, CBC, ANEU #### [place] [address] Platelet 192 10 3/mcL Normal 150-450 [facility] ([place]) Comment on above: Performed By: #### B MP, ADIFF, GFR, CBC, ANEU #### [place] [address] Platelet mean volume (Bld) [Entitic vol] 7.1 fL Normal 6.4-10.5 [facility] ([place]) Comment on above: Performed By: #### B MP, ADIFF, GFR, CBC, ANEU #### [place] [address] RBC 3.95 10 6/mcL Low 4.50-6.00 [facility] ([place]) Comment on above: Performed By: #### B MP, ADIFF, GFR, CBC, ANEU #### [place] [address] WBC 7.2 10 3/mcL Normal 4.5-10.8 [facility] ([place]) Comment on above: Performed By: #### B MP, ADIFF, GFR, CBC, ANEU #### [place] [address] LABORATORYOrdered By: SYSTEM SYSTEM on 01-14-2024 Basophils (Bld) [#/Vol] 0.0 103/mcL Normal 0.0 - 0.3 10^3/mcL AH Workflow SS Basophils/100 WBC (Bld) 0.4 % Normal 0.0 - 2.5 % AH Workflow SS Calcium [Mass/Vol] 8.5 mg/dL Low 8.7 - 10. 4 mg/dL AH ADM SS Chloride [Moles/Vol] 107 mmol/L Normal 98 - 11 0 mEq/L AH ADM SS CO2 [Moles/Vol] 26 mmol/L Normal 22 - 32 mEq/L AH ADM SS Creatinine [Mass/Vol] 0.84 mg/dL Normal 0.60 - 1.40 mg/dL AH ADM SS Electrolyte Balance 5.0 mEq/L Normal 4.0 - 15 .0 mEq/L AH ADM SS Eosinophils (Bld) [#/Vol] 0.2 103/mcL Normal 0.0 - 0.7 10^3/mcL AH Workflow SS Eosinophils/100 WBC (Bld) 3.0 % Normal 0.0 - 6.0 % AH Workflow SS Erythrocyte distribution width (RBC) [Ratio] 12.8 % Normal 11.5 - 15.5 % AH Workflow SS GFR/1.73 sq M.predicted among blacks MDRD (S/P/Bld) [Vol rate/Area] ml/min/1.73sqm Invalid Interpretation Code [facility] Chemistry S Comment on above: Interpretive Data: GFR Population mean for , Non- Americans Ages 20-29 = 116 mL/min/1.73 sq.m. Ages 30-39 = 107 mL/min/1.73 sq.m. Ages 40-49 = 99 mL/min/1.73 sq.m. Ages 50-59 = 93 mL/min/1.73 sq.m. Ages 60-69 = 85 mL/min/1.73 sq.m. Ages 70+ = 75 mL/min/1.73 sq.m. Chronic Kidney Disease: Less than 60 mL/min/1.73 square meters End Stage Renal Disease: Less than 15 mL/min/1.73 square meters GFR/1.73 sq M.predicted among non-blacks MDRD (S/P/Bld) [Vol rate/Area] ml/min/1.73sqm Invalid Interpretation Code [facility] Chemistry S Comment on above: Interpretive Data: GFR Population mean for , Non- Americans Ages 20-29 = 116 mL/min/1.73 sq.m. Ages 30-39 = 107 mL/min/1.73 sq.m. Ages 40-49 = 99 mL/min/1.73 sq.m. Ages 50-59 = 93 mL/min/1.73 sq.m. Ages 60-69 = 85 mL/min/1.73 sq.m. Ages 70+ = 75 mL/min/1.73 sq.m. Chronic Kidney Disease: Less than 60 mL/min/1.73 square meters End Stage Renal Disease: Less than 15 mL/min/1.73 square meters Glucose [Mass/Vol] 108 mg/dL Normal 82 - 115 mg/dL ADM SS Hematocrit (Bld) [Volume fraction] 37.2 % Low 40.0 - 52.0 % AH Workflow SS Hemoglobin (Bld) [Mass/Vol] 12.8 G/dL Low 13.0 - 17.5 G/dL AH Workflow SS Lymphocytes (Bld) [#/Vol] 1.1 103/mcL Normal 0.9 - 4.3 10^3/mcL AH Workflow SS Lymphocytes/100 WBC (Bld) 15.0 % Low 20.0 - 40.0 % AH Workflow SS MCH (RBC) [Entitic mass] 32.2 pg Normal 27.0 - 33.0 pg AH Workflow SS MCHC 34.3 G/dL Normal 32.0 - 36.0 G/dL Workflow SS MCV (RBC) [Entitic vol] 94.1 fL Normal 81.0 - 100.0 fL Workflow SS Monocytes (Bld) [#/Vol] 1.0 103/mcL Normal 0.1 - 1.4 10^3/mcL AH Workflow SS Monocytes/100 WBC (Bld) 13.7 % High 2.0 - 13.0 % AH Workflow SS Neutrophils (Bld) [#/Vol] 4.9 103/mcL Normal 2.3 - 8.1 10^3/mcL AH Workflow SS Neutrophils/100 WBC (Bld) 67.9 % Normal 50.0 - 75.0 % AH Workflow SS Platelet mean volume (Bld) [Entitic vol] 7.1 fL Normal 6.4 - 10.5 fL AH Workflow SS Platelets (Bld) [#/Vol] 192 103/mcL Normal 150 - 450 10^3/mcL AH Workflow SS Potassium [Moles/Vol] 3.6 mmol/L Normal 3.5 - 5.0 mEq/L AH ADM SS RBC (Bld) [#/Vol] 3.95 106/mcL Low 4.50 - 6.0 0 10^6/mcL AH Workflow SS Sodium [Moles/Vol] 138 mmol/L Normal 136 - 145 mEq/L ADM SS Urea nitrogen [Mass/Vol] 12.0 mg/dL Normal 8.0 - 22.0 mg/dL ADM SS Urea nitrogen/Creatinine [Mass ratio] 14.3 ratio Normal 10.0 - 22.0 ratio ADM SS WBC (Bld) [#/Vol] 7.2 103/mcL Normal 4.5 - 10.8 10^3/mcL Workflow SS LABORATORYOrdered By: SYSTEM SYSTEM on 01-13-2024 Troponin I.cardiac DL <= 0.01 ng/mL [Mass/Vol] 7 ng/L Normal 0 - 54 ng/L ADM Comment on above: Interpretive Data: High Sensitive Troponin I Reference Ranges: Female: 0-34 ng/L Male: 0-54 ng/L Testing performed on [employer] IM analyzer using direct chemiluminescent technology. Troponin I.cardiac DL <= 0.01 ng/mL [Mass/Vol] 8 ng/L Normal 0 - 54 ng/L [facility] Comment on above: Interpretive Data: High Sensitive Troponin I Reference Ranges: Female: 0-34 ng/L Male: 0-54 ng/L Testing performed on [employer] IM analyzer using direct chemiluminescent technology. TROPHSon 01-13-2024 High Sensitivity Troponin I 7 ng/L Normal 0-54 [facility] ([place]) Comment on above: Order Comment: q6 ho urs x2 Result Comment: High Sensitive Troponin I Reference Ranges: Female: 0-34 ng/L Male: 0-54 ng/L Testing performed on [employer] IM analyzer using direct chemiluminescent technology. Performed By: #### P RO, CBC, GFR, ADIFF, ANEU, CMP #### [address] [address] High Sensitivity Troponin I 8 ng/L Normal 0-54 [facility] ([place]) Comment on above: Result Comment: High Sensitive Troponin I Reference Ranges: Female: 0-34 ng/L Male: 0-54 ng/L Testing performed on [employer] IM analyzer using direct chemiluminescent technology. Performed By: #### P RO, CBC, GFR, ADIFF, ANEU, CMP #### [address] [address] .Auto Diffon 11-14-2023 Basophil, Absolute 0.0 10 3/mcL Normal 0.0-0.3 [facility] ([place]) Comment on above: Performed By: #### P RO, CBC, GFR, ADIFF, ANEU, CMP #### [address] [address] Basophils/100 WBC (Bld) 0.4 % Normal 0.0-2.5 [facility] ([place]) Comment on above: Performed By: #### P RO, CBC, GFR, ADIFF, ANEU, CMP #### [address] [address] Eosinophil, Absolute 0.1 10 3/mcL Normal 0.0-0.7 [facility] ([place]) Comment on above: Performed By: #### P RO, CBC, GFR, ADIFF, ANEU, CMP #### [address] [address] Eosinophils/100 WBC (Bld) 2.2 % Normal 0.0-6.0 [facility] ([place]) Comment on above: Performed By: #### P RO, CBC, GFR, ADIFF, ANEU, CMP #### [address] [address] Lymphocyte, Absolute 1.1 10 3/mcL Normal 0.9-4.3 [facility] ([place]) Comment on above: Performed By: #### P RO, CBC, GFR, ADIFF, ANEU, CMP #### [address] [address] Lymphocytes/100 WBC (Bld) 16.9 % Low 20.0-40.0 [facility] ([place]) Comment on above: Performed By: #### P RO, CBC, GFR, ADIFF, ANEU, CMP #### [address] [address] Monocyte, Absolute 0.8 10 3/mcL Normal 0.1-1.4 [facility] ([place]) Comment on above: Performed By: #### P RO, CBC, GFR, ADIFF, ANEU, CMP #### [address] [address] Monocytes/100 WBC (Bld) 12.4 % Normal 2.0-13.0 [facility] ([place]) Comment on above: Performed By: #### P RO, CBC, GFR, ADIFF, ANEU, CMP #### [address] [address] Neutrophils/100 WBC (Bld) 68.1 % Normal 50.0-75.0 [facility] ([place]) Comment on above: Performed By: #### P RO, CBC, GFR, ADIFF, ANEU, CMP #### [address] [address] .GFRon 11-14-2023 GFR >60 Normal [facility] ([place]) Comment on above: Result Comment: GFR Population mean for , Non- Americans Ages 20-29 = 116 mL/min/1.73 sq.m. Ages 30-39 = 107 mL/min/1.73 sq.m. Ages 40-49 = 99 mL/min/1.73 sq.m. Ages 50-59 = 93 mL/min/1.73 sq.m. Ages 60-69 = 85 mL/min/1.73 sq.m. Ages 70+ = 75 mL/min/1.73 sq.m. Chronic Kidney Disease: Less than 60 mL/min/1.73 square meters End Stage Renal Disease: Less than 15 mL/min/1.73 square meters Performed By: #### P RO, CBC, GFR, ADIFF, ANEU, CMP #### [address] [address] GFR Non- >60 Normal [facility] ([place]) Comment on above: Result Comment: GFR Population mean for , Non- Americans Ages 20-29 = 116 mL/min/1.73 sq.m. Ages 30-39 = 107 mL/min/1.73 sq.m. Ages 40-49 = 99 mL/min/1.73 sq.m. Ages 50-59 = 93 mL/min/1.73 sq.m. Ages 60-69 = 85 mL/min/1.73 sq.m. Ages 70+ = 75 mL/min/1.73 sq.m. Chronic Kidney Disease: Less than 60 mL/min/1.73 square meters End Stage Renal Disease: Less than 15 mL/min/1.73 square meters Performed By: #### P RO, CBC, GFR, ADIFF, ANEU, CMP #### [address] [address] .NEUABSon 11-14-2023 Neutrophil, Absolute 4.4 10 3/mcL Normal 2.3-8.1 [facility] ([place]) Comment on above: Performed By: #### P RO, CBC, GFR, ADIFF, ANEU, CMP #### [address] [address] ABO/Rh (Gel)on 11-14-2023 ABO/Rh Interp Positive Invalid Interpretation Code [facility] ([place]) Comment on above: Performed By: #### P RO, CBC, GFR, ADIFF, ANEU, CMP #### [place] [id number] ABS (Gel)on 11-14-2023 ABSC Interp (Gel) Negative Normal [facility] ([place]) Comment on above: Performed By: #### P RO, CBC, GFR, ADIFF, ANEU, CMP #### [address] [address] BMPon 11-14-2023 BUN/Creatinine Ratio 22.1 ratio High 10.0-22.0 [facility] ([place]) Comment on above: Performed By: #### P RO, CBC, GFR, ADIFF, ANEU, CMP #### [address] [address] Calcium [Mass/Vol] 8.9 mg/dL Normal 8.7-10.4 [facility] ([place]) Comment on above: Performed By: #### P RO, CBC, GFR, ADIFF, ANEU, CMP #### [address] [address] Chloride [Moles/Vol] 107 mmol/L Normal 98-110 [facility] ([place]) Comment on above: Performed By: #### P RO, CBC, GFR, ADIFF, ANEU, CMP #### [address] [address] CO2 [Moles/Vol] 30 mmol/L Normal 22-32 [facility] ([place]) Comment on above: Performed By: #### P RO, CBC, GFR, ADIFF, ANEU, CMP #### [place] [id number] Creatinine [Mass/Vol] 0.86 mg/dL Normal 0.60-1.40 [facility] ([place]) Comment on above: Performed By: #### P RO, CBC, GFR, ADIFF, ANEU, CMP #### [place] [id number] Electrolyte Balance 4.0 mEq/L Normal 4.0-15.0 [facility] ([place]) Comment on above: Performed By: #### P RO, CBC, GFR, ADIFF, ANEU, CMP #### [place] [id number] Glucose [Mass/Vol] 113 mg/dL Normal 82-115 [facility] ([place]) Comment on above: Performed By: #### P RO, CBC, GFR, ADIFF, ANEU, CMP #### [place] [id number] Potassium [Moles/Vol] 4.0 mmol/L Normal 3.5-5.0 [facility] ([place]) Comment on above: Performed By: #### P RO, CBC, GFR, ADIFF, ANEU, CMP #### [place] [id number] Sodium [Moles/Vol] 141 mmol/L Normal 136-145 [facility] ([place]) Comment on above: Performed By: #### P RO, CBC, GFR, ADIFF, ANEU, CMP #### [place] [id number] Urea nitrogen [Mass/Vol] 19.0 mg/dL Normal 8.0-22.0 [facility] ([place]) Comment on above: Performed By: #### P RO, CBC, GFR, ADIFF, ANEU, CMP #### [address] [address] CBCon 11-14-2023 Erythrocyte distribution width (RBC) [Ratio] 13.4 % Normal 11.5-15.5 [facility] ([place]) Comment on above: Performed By: #### P RO, CBC, GFR, ADIFF, ANEU, CMP #### [place] [id number] Hematocrit (Bld) [Volume fraction] 41.3 % Normal 40.0-52.0 [facility] ([place]) Comment on above: Performed By: #### P RO, CBC, GFR, ADIFF, ANEU, CMP #### [place] [address] Hgb 14.2 G/dL Normal 13.0-17.5 [facility] ([place]) Comment on above: Performed By: #### P RO, CBC, GFR, ADIFF, ANEU, CMP #### [place] [address] MCH (RBC) [Entitic mass] 32.0 pg Normal 27.0-33.0 [facility] ([place]) Comment on above: Performed By: #### P RO, CBC, GFR, ADIFF, ANEU, CMP #### [place] [address] MCHC 34.4 G/dL Normal 32.0-36.0 [facility] ([place]) Comment on above: Performed By: #### P RO, CBC, GFR, ADIFF, ANEU, CMP #### [place] [address] MCV (RBC) [Entitic vol] 92.8 fL Normal 81.0-100.0 [facility] ([place]) Comment on above: Performed By: #### P RO, CBC, GFR, ADIFF, ANEU, CMP #### [place] [address] Platelet 180 10 3/mcL Normal 150-450 [facility] ([place]) Comment on above: Performed By: #### P RO, CBC, GFR, ADIFF, ANEU, CMP #### [place] [address] Platelet mean volume (Bld) [Entitic vol] 7.4 fL Normal 6.4-10.5 [facility] ([place]) Comment on above: Performed By: #### P RO, CBC, GFR, ADIFF, ANEU, CMP #### [place] [address] RBC 4.45 10 6/mcL Low 4.50-6.00 [facility] ([place]) Comment on above: Performed By: #### P RO, CBC, GFR, ADIFF, ANEU, CMP #### [address] [address] WBC 6.5 10 3/mcL Normal 4.5-10.8 [facility] ([place]) Comment on above: Performed By: #### P RO, CBC, GFR, ADIFF, ANEU, CMP #### [address] [address] LABORATORYOrdered By: Pollo Viveros on 11-14-2023 ABO and Rh group Nom (Bld) Blood group A Rh(D) positive Invalid Interpretation Code BB Auto SS Blood group antibody screen Ql Negative ABSC (11/14/23 6:18 AM) Normal BB Auto SS LABORATORYOrdered By: SYSTEM SYSTEM on 11-14-2023 Basophils (Bld) [#/Vol] 0.0 103/mcL Normal 0.0 - 0.3 10^3/mcL AH Workflow SS Basophils/100 WBC (Bld) 0.4 % Normal 0.0 - 2.5 % AH Workflow SS Calcium [Mass/Vol] 8.9 mg/dL Normal 8.7 - 10. 4 mg/dL ADM SS Chloride [Moles/Vol] 107 mmol/L Normal 98 - 11 0 mEq/L AH ADM SS CO2 [Moles/Vol] 30 mmol/L Normal 22 - 32 mEq/L ADM SS Creatinine [Mass/Vol] 0.86 mg/dL Normal 0.60 - 1.40 mg/dL ADM SS Electrolyte Balance 4.0 mEq/L Normal 4.0 - 15 .0 mEq/L ADM SS Eosinophils (Bld) [#/Vol] 0.1 103/mcL Normal 0.0 - 0.7 10^3/mcL AH Workflow SS Eosinophils/100 WBC (Bld) 2.2 % Normal 0.0 - 6.0 % AH Workflow SS Erythrocyte distribution width (RBC) [Ratio] 13.4 % Normal 11.5 - 15.5 % AH Workflow SS GFR/1.73 sq M.predicted among blacks MDRD (S/P/Bld) [Vol rate/Area] ml/min/1.73sqm Invalid Interpretation Code Chemistry S Comment on above: Interpretive Data: GFR Population mean for , Non- Americans Ages 20-29 = 116 mL/min/1.73 sq.m. Ages 30-39 = 107 mL/min/1.73 sq.m. Ages 40-49 = 99 mL/min/1.73 sq.m. Ages 50-59 = 93 mL/min/1.73 sq.m. Ages 60-69 = 85 mL/min/1.73 sq.m. Ages 70+ = 75 mL/min/1.73 sq.m. Chronic Kidney Disease: Less than 60 mL/min/1.73 square meters End Stage Renal Disease: Less than 15 mL/min/1.73 square meters GFR/1.73 sq M.predicted among non-blacks MDRD (S/P/Bld) [Vol rate/Area] ml/min/1.73sqm Invalid Interpretation Code Chemistry S Comment on above: Interpretive Data: GFR Population mean for , Non- Americans Ages 20-29 = 116 mL/min/1.73 sq.m. Ages 30-39 = 107 mL/min/1.73 sq.m. Ages 40-49 = 99 mL/min/1.73 sq.m. Ages 50-59 = 93 mL/min/1.73 sq.m. Ages 60-69 = 85 mL/min/1.73 sq.m. Ages 70+ = 75 mL/min/1.73 sq.m. Chronic Kidney Disease: Less than 60 mL/min/1.73 square meters End Stage Renal Disease: Less than 15 mL/min/1.73 square meters Glucose [Mass/Vol] 113 mg/dL Normal 82 - 115 mg/dL ADM SS Hematocrit (Bld) [Volume fraction] 41.3 % Normal 40.0 - 52.0 % Workflow SS Hemoglobin (Bld) [Mass/Vol] 14.2 G/dL Normal 13.0 - 17.5 G/dL Workflow SS Lymphocytes (Bld) [#/Vol] 1.1 103/mcL Normal 0.9 - 4.3 10^3/mcL Workflow SS Lymphocytes/100 WBC (Bld) 16.9 % Low 20.0 - 40.0 % Workflow SS MCH (RBC) [Entitic mass] 32.0 pg Normal 27.0 - 33.0 pg Workflow SS MCHC 34.4 G/dL Normal 32.0 - 36.0 G/dL AH Workflow SS MCV (RBC) [Entitic vol] 92.8 fL Normal 81.0 - 100.0 fL AH Workflow SS Monocytes (Bld) [#/Vol] 0.8 103/mcL Normal 0.1 - 1.4 10^3/mcL AH Workflow SS Monocytes/100 WBC (Bld) 12.4 % Normal 2.0 - 13.0 % AH Workflow SS Neutrophils (Bld) [#/Vol] 4.4 103/mcL Normal 2.3 - 8.1 10^3/mcL AH Workflow SS Neutrophils/100 WBC (Bld) 68.1 % Normal 50.0 - 75.0 % AH Workflow SS Platelet mean volume (Bld) [Entitic vol] 7.4 fL Normal 6.4 - 10.5 fL AH Workflow SS Platelets (Bld) [#/Vol] 180 103/mcL Normal 150 - 450 10^3/mcL AH Workflow SS Potassium [Moles/Vol] 4.0 mmol/L Normal 3.5 - 5.0 mEq/L AH ADM SS RBC (Bld) [#/Vol] 4.45 106/mcL Low 4.50 - 6.0 0 10^6/mcL AH Workflow SS Sodium [Moles/Vol] 141 mmol/L Normal 136 - 145 mEq/L AH ADM SS Urea nitrogen [Mass/Vol] 19.0 mg/dL Normal 8.0 - 22.0 mg/dL AH ADM SS Urea nitrogen/Creatinine [Mass ratio] 22.1 ratio High 10.0 - 22.0 ratio AH ADM SS WBC (Bld) [#/Vol] 6.5 103/mcL Normal 4.5 - 10.8 10^3/mcL AH Workflow SS .Auto Diffon 09-04-2023 Basophil, Absolute 0.0 10 3/mcL Normal 0.0-0.3 [facility] ([place]) Comment on above: Performed By: #### P RO, CBC, GFR, ADIFF, ANEU, CMP #### [address] [address] Basophils/100 WBC (Bld) 0.3 % Normal 0.0-2.5 [facility] ([place]) Comment on above: Performed By: #### P RO, CBC, GFR, ADIFF, ANEU, CMP #### [address] [address] Eosinophil, Absolute 0.1 10 3/mcL Normal 0.0-0.7 [facility] ([place]) Comment on above: Performed By: #### P RO, CBC, GFR, ADIFF, ANEU, CMP #### [address] [address] Eosinophils/100 WBC (Bld) 1.9 % Normal 0.0-6.0 [facility] ([place]) Comment on above: Performed By: #### P RO, CBC, GFR, ADIFF, ANEU, CMP #### [address] [address] Lymphocyte, Absolute 1.4 10 3/mcL Normal 0.9-4.3 [facility] ([place]) Comment on above: Performed By: #### P RO, CBC, GFR, ADIFF, ANEU, CMP #### [address] [address] Lymphocytes/100 WBC (Bld) 18.8 % Low 20.0-40.0 [facility] ([place]) Comment on above: Performed By: #### P RO, CBC, GFR, ADIFF, ANEU, CMP #### [address] [address] Monocyte, Absolute 0.7 10 3/mcL Normal 0.1-1.4 [facility] ([place]) Comment on above: Performed By: #### P RO, CBC, GFR, ADIFF, ANEU, CMP #### [address] [address] Monocytes/100 WBC (Bld) 8.7 % Normal 2.0-13.0 [facility] ([place]) Comment on above: Performed By: #### P RO, CBC, GFR, ADIFF, ANEU, CMP #### [address] [address] Neutrophils/100 WBC (Bld) 70.3 % Normal 50.0-75.0 [facility] ([place]) Comment on above: Performed By: #### P RO, CBC, GFR, ADIFF, ANEU, CMP #### [address] [address] .GFRon 09-04-2023 GFR >60 Normal [facility] ([place]) Comment on above: Result Comment: GFR Population mean for , Non- Americans Ages 20-29 = 116 mL/min/1.73 sq.m. Ages 30-39 = 107 mL/min/1.73 sq.m. Ages 40-49 = 99 mL/min/1.73 sq.m. Ages 50-59 = 93 mL/min/1.73 sq.m. Ages 60-69 = 85 mL/min/1.73 sq.m. Ages 70+ = 75 mL/min/1.73 sq.m. Chronic Kidney Disease: Less than 60 mL/min/1.73 square meters End Stage Renal Disease: Less than 15 mL/min/1.73 square meters Performed By: #### P RO, CBC, GFR, ADIFF, ANEU, CMP #### [place] [address] GFR Non- >60 Normal [facility] ([place]) Comment on above: Result Comment: GFR Population mean for , Non- Americans Ages 20-29 = 116 mL/min/1.73 sq.m. Ages 30-39 = 107 mL/min/1.73 sq.m. Ages 40-49 = 99 mL/min/1.73 sq.m. Ages 50-59 = 93 mL/min/1.73 sq.m. Ages 60-69 = 85 mL/min/1.73 sq.m. Ages 70+ = 75 mL/min/1.73 sq.m. Chronic Kidney Disease: Less than 60 mL/min/1.73 square meters End Stage Renal Disease: Less than 15 mL/min/1.73 square meters Performed By: #### P RO, CBC, GFR, ADIFF, ANEU, CMP #### [place] [address] .NEUABSon 09-04-2023 Neutrophil, Absolute 5.3 10 3/mcL Normal 2.3-8.1 [facility] ([place]) Comment on above: Performed By: #### P RO, CBC, GFR, ADIFF, ANEU, CMP #### [place] [address] CBCon 09-04-2023 Erythrocyte distribution width (RBC) [Ratio] 13.0 % Normal 11.5-15.5 [facility] ([place]) Comment on above: Performed By: #### P RO, CBC, GFR, ADIFF, ANEU, CMP #### [place] [address] Hematocrit (Bld) [Volume fraction] 41.3 % Normal 40.0-52.0 [facility] ([place]) Comment on above: Performed By: #### P RO, CBC, GFR, ADIFF, ANEU, CMP #### [place] [address] Hgb 14.5 G/dL Normal 13.0-17.5 [facility] ([place]) Comment on above: Performed By: #### P RO, CBC, GFR, ADIFF, ANEU, CMP #### [place] [address] MCH (RBC) [Entitic mass] 32.4 pg Normal 27.0-33.0 [facility] ([place]) Comment on above: Performed By: #### P RO, CBC, GFR, ADIFF, ANEU, CMP #### [place] [address] MCHC 35.0 G/dL Normal 32.0-36.0 [facility] ([place]) Comment on above: Performed By: #### P RO, CBC, GFR, ADIFF, ANEU, CMP #### [place] [address] MCV (RBC) [Entitic vol] 92.8 fL Normal 81.0-100.0 [facility] ([place]) Comment on above: Performed By: #### P RO, CBC, GFR, ADIFF, ANEU, CMP #### [place] [address] Platelet 217 10 3/mcL Normal 150-450 [facility] ([place]) Comment on above: Performed By: #### P RO, CBC, GFR, ADIFF, ANEU, CMP #### [facility] [address] [place], [place] [address] Platelet mean volume (Bld) [Entitic vol] 7.4 fL Normal 6.4-10.5 [facility] ([place]) Comment on above: Performed By: #### P RO, CBC, GFR, ADIFF, ANEU, CMP #### [place] [address] RBC 4.46 10 6/mcL Low 4.50-6.00 [facility] ([place]) Comment on above: Performed By: #### P RO, CBC, GFR, ADIFF, ANEU, CMP #### [place] [address] WBC 7.5 10 3/mcL Normal 4.5-10.8 [facility] ([place]) Comment on above: Performed By: #### P RO, CBC, GFR, ADIFF, ANEU, CMP #### [place] [address] CMPon 09-04-2023 Albumin Level 3.9 G/dL Normal 3.2-4.8 [facility] ([place]) Comment on above: Performed By: #### P RO, CBC, GFR, ADIFF, ANEU, CMP #### [place] [address] Albumin/Globulin [Mass ratio] 1.2 {ratio} Normal 0.9-1.6 [facility] ([place]) Comment on above: Performed By: #### P RO, CBC, GFR, ADIFF, ANEU, CMP #### [place] [address] ALP [Catalytic activity/Vol] 69 U/L Normal 38-126 [facility] ([place]) Comment on above: Performed By: #### P RO, CBC, GFR, ADIFF, ANEU, CMP #### [place] [address] ALT [Catalytic activity/Vol] 26 U/L Normal 12-55 [facility] ([place]) Comment on above: Performed By: #### P RO, CBC, GFR, ADIFF, ANEU, CMP #### [place] [id number] AST [Catalytic activity/Vol] 15 U/L Normal 8-34 [facility] ([place]) Comment on above: Performed By: #### P RO, CBC, GFR, ADIFF, ANEU, CMP #### [address] [address] Bili Total 0.80 mg/dL Normal 0.20-1.20 [facility] ([place]) Comment on above: Result Comment: Use of this assay is not recommended for patients undergoing treatment with eltrombopag due to the potential for falsely elevated results. Performed By: #### P RO, CBC, GFR, ADIFF, ANEU, CMP #### [address] [address] BUN/Creatinine Ratio 22.0 ratio Normal 10.0-22.0 [facility] ([place]) Comment on above: Performed By: #### P RO, CBC, GFR, ADIFF, ANEU, CMP #### [address] [address] Calcium [Mass/Vol] 9.2 mg/dL Normal 8.7-10.4 [facility] ([place]) Comment on above: Performed By: #### P RO, CBC, GFR, ADIFF, ANEU, CMP #### [address] [address] Chloride [Moles/Vol] 108 mmol/L Normal 98-110 [facility] ([place]) Comment on above: Performed By: #### P RO, CBC, GFR, ADIFF, ANEU, CMP #### [address] [address] CO2 [Moles/Vol] 28 mmol/L Normal 22-32 [facility] ([place]) Comment on above: Performed By: #### P RO, CBC, GFR, ADIFF, ANEU, CMP #### [address] [address] Creatinine [Mass/Vol] 0.82 mg/dL Normal 0.60-1.40 [facility] ([place]) Comment on above: Performed By: #### P RO, CBC, GFR, ADIFF, ANEU, CMP #### [address] [address] Electrolyte Balance 5.0 mEq/L Normal 4.0-15.0 [facility] ([place]) Comment on above: Performed By: #### P RO, CBC, GFR, ADIFF, ANEU, CMP #### [address] [address] Globulin 3.3 G/dL Normal 1.5-3.8 [facility] ([place]) Comment on above: Performed By: #### P RO, CBC, GFR, ADIFF, ANEU, CMP #### [place] [id number] Glucose [Mass/Vol] 106 mg/dL Normal 82-115 [facility] ([place]) Comment on above: Performed By: #### P RO, CBC, GFR, ADIFF, ANEU, CMP #### [place] [id number] Potassium [Moles/Vol] 4.0 mmol/L Normal 3.5-5.0 [facility] ([place]) Comment on above: Performed By: #### P RO, CBC, GFR, ADIFF, ANEU, CMP #### [place] [id number] Sodium [Moles/Vol] 141 mmol/L Normal 136-145 [facility] ([place]) Comment on above: Performed By: #### P RO, CBC, GFR, ADIFF, ANEU, CMP #### [place] [address] Total Protein 7.2 G/dL Normal 5.7-8.2 [facility] ([place]) Comment on above: Result Comment: No te - New Reference Range in effect 20 Performed By: #### P RO, CBC, GFR, ADIFF, ANEU, CMP #### [place] [id number] Urea nitrogen [Mass/Vol] 18.0 mg/dL Normal 8.0-22.0 [facility] ([place]) Comment on above: Performed By: #### P RO, CBC, GFR, ADIFF, ANEU, CMP #### [place] [id number] LABORATORYOrdered By: SYSTEM SYSTEM on 09-04-2023 Albumin BCP dye [Mass/Vol] 3.9 G/dL Normal 3.2 - 4.8 G/dL ADM SS Albumin/Globulin [Mass ratio] 1.2 {ratio} Normal 0.9 - 1.6 ratio ADM SS ALP [Catalytic activity/Vol] 69 U/L Normal 38 - 126 U/L ADM SS ALT No additional P-5'-P [Catalytic activity/Vol] 26 U/L Normal 12 - 55 U/L ADM SS AST [Catalytic activity/Vol] 15 U/L Normal 8 - 34 U/L ADM SS Basophils (Bld) [#/Vol] 0.0 103/mcL Normal 0.0 - 0.3 10^3/mcL Workflow SS Basophils/100 WBC (Bld) 0.3 % Normal 0.0 - 2.5 % Workflow SS Bilirubin [Mass/Vol] 0.80 mg/dL Normal 0.20 - 1.20 mg/dL ADM SS Comment on above: Interpretive Data: U se of this assay is not recommended for patients undergoing treatment with eltrombopag due to the potential for falsely elevated results. Calcium [Mass/Vol] 9.2 mg/dL Normal 8.7 - 10. 4 mg/dL ADM SS Chloride [Moles/Vol] 108 mmol/L Normal 98 - 11 0 mEq/L ADM SS CO2 [Moles/Vol] 28 mmol/L Normal 22 - 32 mEq/L ADM SS Creatinine [Mass/Vol] 0.82 mg/dL Normal 0.60 - 1.40 mg/dL ADM SS Electrolyte Balance 5.0 mEq/L Normal 4.0 - 15 .0 mEq/L ADM SS Eosinophils (Bld) [#/Vol] 0.1 103/mcL Normal 0.0 - 0.7 10^3/mcL Workflow SS Eosinophils/100 WBC (Bld) 1.9 % Normal 0.0 - 6.0 % Workflow SS Erythrocyte distribution width (RBC) [Ratio] 13.0 % Normal 11.5 - 15.5 % Workflow SS GFR/1.73 sq M.predicted among blacks MDRD (S/P/Bld) [Vol rate/Area] ml/min/1.73sqm Invalid Interpretation Code Chemistry S Comment on above: Interpretive Data: GFR Population mean for , Non- Americans Ages 20-29 = 116 mL/min/1.73 sq.m. Ages 30-39 = 107 mL/min/1.73 sq.m. Ages 40-49 = 99 mL/min/1.73 sq.m. Ages 50-59 = 93 mL/min/1.73 sq.m. Ages 60-69 = 85 mL/min/1.73 sq.m. Ages 70+ = 75 mL/min/1.73 sq.m. Chronic Kidney Disease: Less than 60 mL/min/1.73 square meters End Stage Renal Disease: Less than 15 mL/min/1.73 square meters GFR/1.73 sq M.predicted among non-blacks MDRD (S/P/Bld) [Vol rate/Area] ml/min/1.73sqm Invalid Interpretation Code Chemistry S Comment on above: Interpretive Data: GFR Population mean for , Non- Americans Ages 20-29 = 116 mL/min/1.73 sq.m. Ages 30-39 = 107 mL/min/1.73 sq.m. Ages 40-49 = 99 mL/min/1.73 sq.m. Ages 50-59 = 93 mL/min/1.73 sq.m. Ages 60-69 = 85 mL/min/1.73 sq.m. Ages 70+ = 75 mL/min/1.73 sq.m. Chronic Kidney Disease: Less than 60 mL/min/1.73 square meters End Stage Renal Disease: Less than 15 mL/min/1.73 square meters Globulin 3.3 G/dL Normal 1.5 - 3.8 G/dL ADM SS Glucose [Mass/Vol] 106 mg/dL Normal 82 - 115 mg/dL ADM SS Hematocrit (Bld) [Volume fraction] 41.3 % Normal 40.0 - 52.0 % Workflow SS Hemoglobin (Bld) [Mass/Vol] 14.5 G/dL Normal 13.0 - 17.5 G/dL Workflow SS Lymphocytes (Bld) [#/Vol] 1.4 103/mcL Normal 0.9 - 4.3 10^3/mcL Workflow SS Lymphocytes/100 WBC (Bld) 18.8 % Low 20.0 - 40.0 % Workflow SS MCH (RBC) [Entitic mass] 32.4 pg Normal 27.0 - 33.0 pg AH Workflow SS MCHC 35.0 G/dL Normal 32.0 - 36.0 G/dL AH Workflow SS MCV (RBC) [Entitic vol] 92.8 fL Normal 81.0 - 100.0 fL AH Workflow SS Monocytes (Bld) [#/Vol] 0.7 103/mcL Normal 0.1 - 1.4 10^3/mcL AH Workflow SS Monocytes/100 WBC (Bld) 8.7 % Normal 2.0 - 13.0 % AH Workflow SS Neutrophils (Bld) [#/Vol] 5.3 103/mcL Normal 2.3 - 8.1 10^3/mcL AH Workflow SS Neutrophils/100 WBC (Bld) 70.3 % Normal 50.0 - 75.0 % AH Workflow SS Platelet mean volume (Bld) [Entitic vol] 7.4 fL Normal 6.4 - 10.5 fL AH Workflow SS Platelets (Bld) [#/Vol] 217 103/mcL Normal 150 - 450 10^3/mcL AH Workflow SS Potassium [Moles/Vol] 4.0 mmol/L Normal 3.5 - 5.0 mEq/L AH ADM SS Protein [Mass/Vol] 7.2 G/dL Normal 5.7 - 8.2 G/dL AH ADM SS Comment on above: Interpretive Data: * *Note - New Reference Range in effect 20 RBC (Bld) [#/Vol] 4.46 106/mcL Low 4.50 - 6.0 0 10^6/mcL AH Workflow SS Sodium [Moles/Vol] 141 mmol/L Normal 136 - 145 mEq/L AH ADM SS Urea nitrogen [Mass/Vol] 18.0 mg/dL Normal 8.0 - 22.0 mg/dL AH ADM SS Urea nitrogen/Creatinine [Mass ratio] 22.0 ratio Normal 10.0 - 22.0 ratio AH ADM SS WBC (Bld) [#/Vol] 7.5 103/mcL Normal 4.5 - 10.8 10^3/mcL AH Workflow SS LABORATORYOrdered By: Ewelina Christina on 09-04-2023 PT Coag (PPP) [Time] 11.6 s Normal 9.0 - 1 4.2 seconds AH [facility] SS Comment on above: Interpretive Data: E ffective 03/22/08, Protime results may be affected by some antibiotics (i.e. Ciprofloxacin, Azithromycin, Bactrim) which may potentiate the action of oral anticoagulants, with further increases in Protime/INR. PT International Ratio 1.0 ratio Invalid Interpretation Code BELA [facility] SS Comment on above: Interpretive Data: Jeane bonilla [employer] (CHEST, 1991, [id number]) recommended therapeutic range for oral anticoagulant therapy is: LOW RISK: Prophylaxis of venous thrombosis INR: 2.0-3.0 Treatment of pulmonary embolism 2.0-3.0 Prevention of systemic embolism 2.0-3.0 HIGH RISK: Mechanical prosthetic valves 2.5-3.5 PROon 09-04-2023 INR Coag (PPP) [Relative time] 1.0 {INR} Normal [facility] ([place]) Comment on above: Result Comment: [employer] (CHEST, 1991, [id number]) recommended therapeutic range for oral anticoagulant therapy is: LOW RISK: Prophylaxis of venous thrombosis INR: 2.0-3.0 Treatment of pulmonary embolism 2.0-3.0 Prevention of systemic embolism 2.0-3.0 HIGH RISK: Mechanical prosthetic valves 2.5-3.5 Performed By: #### P RO, CBC, GFR, ADIFF, ANEU, CMP #### [address] [id number] PT Coag (PPP) [Time] 11.6 s Normal 9.0-14.2 [facility] ([place]) Comment on above: Result Comment: Effe ctive 03/22/08, Protime results may be affected by some antibiotics (i.e. Ciprofloxacin, Azithromycin, Bactrim) which may potentiate the action of oral anticoagulants, with further increases in Protime/INR. Performed By: #### P RO, CBC, GFR, ADIFF, ANEU, CMP #### [address] [id number] Hemoglobin A1con 07-21-2020 HbA1c (Bld) [Mass fraction] 5.5 % Normal 4.3-5.6 [facility] Comment on above: Performed By: #### H BA1C #### [facility] Routine Lab [address] [place], [place] [address] HbA1c (Bld) [Mass fraction] 111 mg/dL Normal [facility] Comment on above: Performed By: #### H BA1C #### [facility] Routine Lab [address] [place], [place] [address] Vital Signs Date Time Vital Sign Value Performing Clinician Faci litvidhya 05-19-2024 07:05-0400 Body temperature 97.88 [degF] FREDA SINGH MD [address] [place] [address] 05-19-2024 07:05-0400 Diastolic Blood Pressure Non-Invasive 60 mm[Hg] FREDA SINGH MD [address] [place] [address] 05-19-2024 07:05-0400 Heart rate 54 /min FREDA SINGH MD [address] [place] [address] 05-19-2024 07:05-0400 Mean blood pressure 83 mm[Hg] FREDA SINGH MD [address] [place] [address] 05-19-2024 07:05-0400 Reason For Taking VItal Signs FREDA SINGH MD 71 [place] [address] 05-19-2024 07:05-0400 Respiratory rate 16 /min FREDA SINGH MD [address] [place] [address] 05-19-2024 07:05-0400 Systolic Blood Pressure Non-Invasive 140 mm[Hg] FREDA SINGH MD [address] [place] [address] 05-19-2024 06:00-0400 Heart rate 48 /min FREDA SINGH MD [address] [place] [address] 05-19-2024 05:00-0400 Heart rate 75 /min FREDA SINGH MD [address] [place] [address] 05-19-2024 03:07-0400 Body temperature 97.7 [degF] FREDA SINGH MD [address] [place] [address] 05-19-2024 03:07-0400 Diastolic Blood Pressure Non-Invasive 69 mm[Hg] FREDA SINGH MD [address] [place] [address] 05-19-2024 03:07-0400 Mean blood pressure 88 mm[Hg] FREDA SINGH MD [address] [place] [address] 05-19-2024 03:07-0400 Reason For Taking VItal Signs FREDA SINGH MD [address] [place] [address] 05-19-2024 03:07-0400 Respiratory rate 18 /min FREDA SINGH MD [address] [place] [address] 05-19-2024 03:07-0400 Systolic Blood Pressure Non-Invasive 138 mm[Hg] FREDA SINGH MD [address] [place] [address] 05-18-2024 22:58-0400 Body temperature 98.6 [degF] FREDA SINGH MD [address] [place] [address] 05-18-2024 22:58-0400 Diastolic Blood Pressure Non-Invasive 62 mm[Hg] FREDA SINGH MD [address] [place] [address] 05-18-2024 22:58-0400 Mean blood pressure 85 mm[Hg] FREDA SINGH MD [address] [place] [address] 05-18-2024 22:58-0400 Respiratory rate 18 /min FREDA SINGH MD [address] [place] [address] 05-18-2024 22:58-0400 Systolic Blood Pressure Non-Invasive 133 mm[Hg] FREDA SINGH MD [address] [place] [address] 05-18-2024 20:23-0400 Heart rate 89 /min FREDA SINGH MD [address] [place] [address] 05-18-2024 15:10-0400 Blood Pressure Cuff Size FREDA SINGH MD [address] [place] [address] 05-18-2024 15:10-0400 Blood Pressure Location FREDA SINGH MD [address] [place] [address] 05-18-2024 15:10-0400 Blood Pressure Method FREDA SINGH MD [address] [place] [address] 05-18-2024 11:11-0400 Blood Pressure Method FREDA SINGH MD [address] [place] [address] 05-18-2024 09:56-0400 Diastolic blood pressure 71 mm[Hg] FREDA SINGH MD [address] [place] [address] 05-18-2024 09:56-0400 Mean blood pressure 86 mm[Hg] FREDA SINGH MD [address] [place] [address] 05-18-2024 09:56-0400 Systolic blood pressure 135 mm[Hg] FREDA SINGH MD [address] [place] [address] 05-18-2024 09:41-0400 Blood Pressure Method FREDA SINGH MD [address] [place] [address] 05-18-2024 09:41-0400 Diastolic blood pressure 55 mm[Hg] FREDA SINGH MD [address] [place] [address] 05-18-2024 09:41-0400 Systolic blood pressure 137 mm[Hg] FREDA SINGH MD [address] [place] [address] 05-18-2024 09:30-0400 Respiratory Rate - Anes 0 br/min FREDA SINGH MD [address] [place] [address] 05-18-2024 09:25-0400 Respiratory Rate - Anes 10 br/min FREDA SINGH MD [address] [place] [address] 05-18-2024 09:20-0400 Body temperature 96.75 [degF] FREDA ISNGH MD [address] [place] [address] 05-18-2024 09:20-0400 Respiratory Rate - Anes 7 br/min FREDA SINGH MD [address] [place] [address] 05-18-2024 09:15-0400 Body temperature 96.64 [degF] FRDEA SINGH MD [address] [place] [address] 05-18-2024 09:10-0400 Body temperature 96.57 [degF] FREDA SINGH MD [address] [place] [address] 05-18-2024 06:02-0400 Body weight 30.7 kg/m2 FREDA SINGH MD [address] [place] [address] 05-18-2024 05:58-0400 Body height 180.3 cm FREDA SINGH MD [address] [place] [address] 05-18-2024 05:58-0400 Body weight 99.8 kg FREDA SINGH MD [address] [place] [address] 05-18-2024 05:58-0400 Heart rate 60 /min FREDA SINGH MD [address] [place] [address] 05-11-2024 11:05-0400 Blood Pressure Cuff Size FREDA SINGH MD [address] [place] [address] 05-11-2024 11:05-0400 Blood Pressure Location FREDA SINGH MD [address] [place] [address] 05-11-2024 11:05-0400 Blood Pressure Method FREDA SINGH MD [address] [place] [address] 05-11-2024 11:05-0400 Diastolic Blood Pressure Non-Invasive 68 mm[Hg] FREDA SINGH MD [address] [place] [address] 05-11-2024 11:05-0400 Systolic Blood Pressure Non-Invasive 134 mm[Hg] FREDA SINGH MD [address] [place] [address] 05-11-2024 10:54-0400 Blood Pressure Cuff Size FREDA SINGH MD [address] [place] [address] 05-11-2024 10:54-0400 Blood Pressure Location FREDA SINGH MD [address] [place] [address] 05-11-2024 10:54-0400 Blood Pressure Method FREDA SINGH MD [address] [place] [address] 05-11-2024 10:54-0400 Body height 180 cm FREDA SINGH MD [address] [place] [address] 05-11-2024 10:54-0400 Body temperature 97.7 [degF] FREDA SINGH MD [address] [place] [address] 05-11-2024 10:54-0400 Body weight 101.8 kg FREDA SINGH MD [address] [place] [address] 05-11-2024 10:54-0400 Diastolic Blood Pressure Non-Invasive 88 mm[Hg] FREDA SINHG MD [facility] 05-11-2024 10:54-0400 Heart rate 61 /min FREDA SINGH MD [facility] 05-11-2024 10:54-0400 Systolic Blood Pressure Non-Invasive 155 mm[Hg] FREDA SINGH MD [facility] 01-15-2024 18:22-0400 Body temperature 98.06 [degF] [facility] [employer] [facility] 01-15-2024 18:22-0400 Diastolic Blood Pressure Non-Invasive 85 mm[Hg] [facility] [employer] [facility] 01-15-2024 18:22-0400 Heart rate 62 /min [facility] 01-15-2024 18:22-0400 Reason For Taking VItal Signs [facility] [employer] [facility] 01-15-2024 18:22-0400 Respiratory rate 18 /min [facility] [employer] [facility] 01-15-2024 18:22-0400 Systolic Blood Pressure Non-Invasive 135 mm[Hg[facility] 01-15-2024 14:48-0400 Body temperature 98.06 [degF] [facility] 01-15-2024 14:48-0400 Diastolic Blood Pressure Non-Invasive 64 mm[Hg[facility] 01-15-2024 14:48-0400 Heart rate 62 /min [facility] [employer] [facility] 01-15-2024 14:48-0400 Reason For [facility]Ital Signs [facility] [employer] [facility] 01-15-2024 14:48-0400 Respiratory rate 18 /min [facility] [employer] [facility] 01-15-2024 14:48-0400 Systolic Blood Pressure Non-Invasive 128 mm[Hg] [facility] [employer] [facility] 01-15-2024 10:42-0400 Blood Pressure Location [facility] [employer] [facility] 01-15-2024 10:42-0400 Blood Pressure Method [facility] [employer] [facility] 01-15-2024 10:42-0400 Body temperature 98.24 [degF] [facility] [employer] [facility] 01-15-2024 10:42-0400 Diastolic Blood Pressure Non-Invasive 68 mm[Hg] [facility] [employer] [facility] 01-15-2024 10:42-0400 Heart rate 59 /min [facility] [employer] [facility] 01-15-2024 10:42-0400 Reason For Taking VItal Signs [facility] [employer] [facility] 01-15-2024 10:42-0400 Respiratory rate 20 /min [facility] [employer] [facility] 01-15-2024 10:42-0400 Systolic Blood Pressure Non-Invasive 120 mm[Hg] [facility] [employer] [facility] 01-15-2024 08:25-0400 Heart rate 72 /min [facility] [employer] [facility] 01-14-2024 23:11-0400 Heart rate 56 /min [facility] [employer] [facility] 01-14-2024 18:39-0400 Blood Pressure Cuff Size [facility] [employer] [facility] 01-14-2024 18:39-0400 Blood Pressure Location [facility] DO [facility] 01-14-2024 18:39-0400 Blood Pressure Method [facility] DO [facility] 01-14-2024 18:39-0400 Mean blood pressure 77 mm[Hg] [facility] DO [facility] 01-14-2024 15:42-0400 Heart rate 64 /min [facility] DO [facility] 01-14-2024 11:02-0400 Heart rate 83 /min [facility] [employer] [facility] 01-14-2024 03:38-0400 Heart rate 67 /min [facility] [employer] [facility] 01-13-2024 23:00-0400 Blood Pressure Location [facility] [employer] [facility] 01-13-2024 23:00-0400 Blood Pressure Method [facility] [employer] [facility] 01-13-2024 23:00-0400 Heart rate 76 /min [facility] [employer] [facility] 01-13-2024 21:21-0400 Body height 182.9 cm [facility] [employer] [facility] 01-13-2024 21:21-0400 Body weight 100 kg [facility] [employer] [facility] 01-13-2024 21:21-0400 Body weight 29.89 kg/m2 [facility] [employer] [facility] 01-13-2024 20:55-0400 Blood Pressure Cuff Size [facility] [employer] [facility] 01-13-2024 15:09-0400 Body weight 109 kg [facility] [employer] [facility] 11-15-2023 08:12-0500 Heart rate 65 /min FREDA SINGH MD [address] [place] [address] 11-15-2023 08:08-0500 Blood Pressure Cuff Size FREDA SINGH MD [address] [place] [address] 11-15-2023 08:08-0500 Blood Pressure Location FREDA SINGH MD [address] [place] [address] 11-15-2023 08:08-0500 Blood Pressure Method FREDA SINGH MD [address] [place] [address] 11-15-2023 08:08-0500 Body temperature 98.24 [degF] FREDA SINGH MD [address] [place] [address] 11-15-2023 08:08-0500 Diastolic Blood Pressure Non-Invasive 59 mm[Hg] FREDA SINGH MD [address] [place] [address] 11-15-2023 08:08-0500 Heart rate 65 /min FREDA SINGH MD [address] [place] [address] 11-15-2023 08:08-0500 Mean blood pressure 87 mm[Hg] FREDA SINGH MD [address] [place] [address] 11-15-2023 08:08-0500 Reason For Taking VItal Signs FREDA SINGH MD [address] [place] [address] 11-15-2023 08:08-0500 Respiratory rate 18 /min FREDA SINGH MD [address] [place] [address] 11-15-2023 08:08-0500 Systolic Blood Pressure Non-Invasive 139 mm[Hg] FREDA SINGH MD [address] [place] [address] 11-15-2023 05:00-0500 Heart rate 58 /min FREDA SINGH MD [address] [place] [address] 11-15-2023 03:00-0500 Body temperature 98.06 [degF] FREDA SINGH MD [address] [place] [address] 11-15-2023 03:00-0500 Diastolic Blood Pressure Non-Invasive 68 mm[Hg] FREDA SINGH MD [address] [place] [address] 11-15-2023 03:00-0500 Heart rate 62 /min FREDA SINGH MD [address] [place] [address] 11-15-2023 03:00-0500 Systolic Blood Pressure Non-Invasive 124 mm[Hg] FREDA SINGH MD [address] [place] [address] 11-15-2023 01:08-0500 Blood Pressure Location FREDA SINGH MD [address] [place] [address] 11-15-2023 01:08-0500 Blood Pressure Method FREDA SINGH MD [address] [place] [address] 11-15-2023 01:08-0500 Diastolic Blood Pressure Non-Invasive 62 mm[Hg] FREDA SINGH MD [address] [place] [address] 11-15-2023 01:08-0500 Mean blood pressure 81 mm[Hg] FREDA SINGH MD [address] [place] [address] 11-15-2023 01:08-0500 Respiratory rate 18 /min FREDA SINGH MD [address] [place] [address] 11-15-2023 01:08-0500 Systolic Blood Pressure Non-Invasive 140 mm[Hg] FREDA SINGH MD [address] [place] [address] 11-14-2023 23:40-0500 Body temperature 97.88 [degF] FREDA SINGH MD [address] [place] [address] 11-14-2023 23:40-0500 Reason For Taking VItal Signs FREDA SINGH MD [address] [place] [address] 11-14-2023 21:22-0500 Blood Pressure Cuff Size FREDA SINGH MD [address] [place] [address] 11-14-2023 21:22-0500 Body temperature 98.24 [degF] FREDA SINGH MD [address] [place] [address] 11-14-2023 21:22-0500 Mean blood pressure 82 mm[Hg] FREDA SINGH MD [address] [place] [address] 11-14-2023 17:44-0500 Body height 182.9 cm FREDA SINGH MD [address] [place] [address] 11-14-2023 17:44-0500 Body weight 100.2 kg FREDA SINGH MD [address] [place] [address] 11-14-2023 17:44-0500 Body weight 29.95 kg/m2 FREDA SINGH MD [address] [place] [address] 11-14-2023 11:05-0500 Body temperature 96.44 [degF] FREDA SINGH MD [address] [place] [address] 11-14-2023 10:50-0500 Respiratory Rate - Anes 4 br/min FREDA SINGH MD [address] [place] [address] 11-14-2023 10:45-0500 Respiratory Rate - Anes 9 br/min FREDA SINGH MD [address] [place] [address] 11-14-2023 10:40-0500 Body temperature 96.98 [degF] FREDA SINGH MD [address] [place] [address] 11-14-2023 10:40-0500 Respiratory Rate - Anes 12 br/min FREDA SINGH MD [address] [place] [address] 11-14-2023 10:35-0500 Body temperature 96.94 [degF] FREDA SINGH MD [address] [place] [address] 11-14-2023 10:30-0500 Body temperature 96.93 [degF] FREDA SINGH MD [address] [place] [address] 11-14-2023 06:01-0500 Body height 182.9 cm FREDA SINGH MD [address] [place] [address] 11-14-2023 06:01-0500 Body weight 100.2 kg FREDA SINGH MD [address] [place] [address] 11-14-2023 06:01-0500 Body weight 29.95 kg/m2 FREDA SINGH MD [address] [place] [address] 11-14-2023 05:56-0500 Body height 182.9 cm FREDA SINGH MD [address] [place] [address] 11-14-2023 05:56-0500 Body weight 100.2 kg FREDA SINGH MD [address] [place] [address] 11-14-2023 05:56-0500 Heart rate 55 /min FREDA SINGH MD [address] [place] [address] 09-04-2023 13:34-0500 Diastolic Blood Pressure Non-Invasive 64 mm[Hg] TAYE AVILES MD [address] [place] [address] 09-04-2023 13:34-0500 Heart rate 61 /min TAYE AVILES MD [address] [place] [address] 09-04-2023 13:34-0500 Respiratory rate 16 /min TAYE AVILES MD [address] [place] [address] 09-04-2023 13:34-0500 Systolic Blood Pressure Non-Invasive 130 mm[Hg] TAYE AVILES MD [address] [place] [address] 09-04-2023 13:16-0500 Diastolic Blood Pressure Non-Invasive 61 mm[Hg] TAYE AVILES MD [address] [place] [address] 09-04-2023 13:16-0500 Heart rate 68 /min TAYE AVILES MD [address] [place] [address] 09-04-2023 13:16-0500 Respiratory rate 16 /min TAYE AVILES MD [address] [place] [address] 09-04-2023 13:16-0500 Systolic Blood Pressure Non-Invasive 135 mm[Hg] TAYE AVILES MD [address] [place] [address] 09-04-2023 13:01-0500 Diastolic Blood Pressure Non-Invasive 57 mm[Hg] TAYE AVILES MD [address] [place] [address] 09-04-2023 13:01-0500 Heart rate 70 /min TAYE AVILES MD [address] [place] [address] 09-04-2023 13:01-0500 Respiratory rate 16 /min TAYE AVILES MD [facility] 09-04-2023 13:01-0500 Systolic Blood Pressure Non-Invasive 147 mm[Hg] TAYE AVILES MD [facility] 09-04-2023 08:34-0500 Body height 182.9 cm TAYE AVILES MD [facility] 09-04-2023 08:34-0500 Body temperature 97.52 [degF] TAYE AVILES MD [facility] 09-04-2023 08:34-0500 Body weight 103.2 kg TAYE AVILES MD [facility] Encounters Encounter Date Encounter Type Care Provider Facility Start: 05-30-2025 ambulatory Zeenat Llanos [facility] Start: 05-24-2025 ambulatory [facility] PA[facility] Start: 04-29-2025 End: 04-29-2025 Encounter for other preprocedural examination ROBIN WEBB [facility] Start: 04-29-2025 End: 04-29-2025 ambulatory [facility] Start: 04-18-2025 End: 04-18-2025 ambulatory ELIDA CELESTE [facility] Start: 03-23-2025 End: 05-17-2025 ambulatory JUSTICE CARDENAS [facility] Start: 02-14-2025 End: 02-14-2025 ambulatory ANASTASIA RICHMOND DO Facility:A Start: 02-14-2025 End: 02-14-2025 Observation FREDA SINGH MD [facility] Start: 02-07-2025 End: 02-07-2025 Admission to establishment FREDA SINGH MD [facility] Start: 02-07-2025 End: 02-07-2025 ambulatory FREDA SINGH MD Facility:A Start: 01-03-2025 End: 03-02-2025 [facility] Start: 12-30-2024 ambulatory JUSTICE HURTADO [facility] Start: 12-27-2024 End: 12-27-2024 ambulatory JUSTICE HURTADO [facility] Start: 12-20-2024 Encounter for other preprocedural examination Robin Barrett [facility] Start: 12-17-2024 End: 12-17-[address] Justice Cardenas MD Work Phone: [facility] Work Phone: Start: 12-17-2024 End: 12-17-[address] [facility] Start: 12-17-2024 End: 12-17-2024 ambulatory Robin Barrett Facility:[facility] Start: 08-09-2024 End: 09-02-2024 ambulatory CRYSTAL SKAGGS [facility] Start: 08-09-2024 End: 09-02-2024 Encounter for general adult medical examination without abnormal findings CRYSTAL SKAGGS [facility] Start: 07-06-2024 End: 07-06-2024 ambulatory STEVE RAYA APRN-SINGLE POINTED OPERATOR Facility:A Start: 07-06-2024 End: 07-06-2024 Patient encounter procedure STEVE ARYA APRN-SINGLE POINTED OPERATOR [facility] Start: 07-01-2024 End: 07-01-2024 ambulatory STEVE RAYA [facility] Start: 05-18-2024 End: 05-19-2024 Evaluation and management of inpatient FREDA SINGH MD [facility] Start: 05-11-2024 End: 05-11-2024 Admission to establishment FREDA SINGH MD [facility] Start: 05-11-2024 End: 05-11-[address] JUSTICE CARDENAS MD Facility:A Start: 05-11-2024 End: 05-11-2024 Encounter for other preprocedural examination FREDA SINGH MD Facility:A Start: 01-13-2024 End: 01-15-2024 Evaluation and management of inpatient [facility] Start: 11-14-2023 End: 11-15-[address] JUSTICE CARDENAS MD Facility:A Start: 11-14-2023 End: 11-15-2023 Observation FREDA SINGH MD [facility] Start: 09-04-2023 End: 09-04-2023 ambulatory MIKY JOHNSON MD Facility:A Start: 09-04-2023 End: 09-04-2023 SAME DAY STAY TAYE AVILES MD [facility] Procedures Date Procedure Procedure Detail Performing Clinician Start: 01-07-2024 Bone structure of pa tella (body structure) FREDA SINGH MD Comment on above: L patella Tendon Rep air 01/2024 Start: 01-07-2024 Repair of patellar tendon FREDA SINGH MD Comment on above: LEFT Start: 11-07-2023 Cardiac ablation sys tem (physical object) FREDA SINGH MD Start: 09-08-2023 Lithotripsy FREDA SINGH MD Start: 09-04-2023 Cardiac catheterization FREDA SINGH MD Comment on above: Procedures performed : Left heart catheterization. Right coronary angiography. Left coronary angiography. Left ventriculography. SUMMARY: Left ventricle: Systolic function is reduced. The estimated ejection fraction is 45-50%. IMPRESSIONS: The study demonstrates mild coronary artery disease. Start: 03-14-2022 Echocardiography TAYE AVILES MD Comment on above: EF 55-60% CONCLUSION: 1. Left ventricle is normal in size and thickness. Calculated ejection fraction is 50%. There are no regional wall motion abnormality seen. Global longitudinal strain is borderline low at-16.7% 2. There are no significant valvular dysfunction seen. 3. Right ventricle is normal in size and systolic function 4. Estimated right ventricular systolic pressure is 26 mm Hg. 5. Compared to the prior CELE done in 11/2019, ejection fraction has improved. Right ventricular function has improved Start: 04-13-2020 Catheter ablation of arrhythmogenic focus TAYE AVILES MD Comment on above: IMPRESSION: - Successful radiofrequency pulmonary vein Isolation - Normal HPS conduction Start: 09-08-2018 Cardioversion FREDA Alves MD Start: 09-08-1966 Primary open reducti on of fracture of neck of femur and open fixation using Deyerle multiple hip pinning FREDA SINGH MD Comment on above: right Arthroscopy of knee FREDA HOGAN MD Comment on above: right Colonoscopy FREDA SINGH MD Dissection tonsillectomy ROSANA AVILES MD Primary open reducti on of fracture of neck of femur and open fixation using Deyerle multiple hip pinning TAYE AVILES MD Thumb structure (bod y structure) FREDA SINGH MD Thumb structure (bod y structure) FREDA SINGH MD Comment on above: as a child , right Thumb structure (bod y structure) FREDA SINGH MD Comment on above: as a child , right REMOVED EXTRA THUMB Immunizations Immunization Date Immunization Notes Care Provider Fa rashaad 09-15-2021 SARS-CoV-2 mRNA (tozinameran) vaccine FREDA SINGH MD [facility] 01-23-2021 SARS-CoV-2 mRNA (tozinameran) vaccine FREDA SINGH MD [facility] Comment on above: Result Comment: 2023: [id number] 01-02-2021 SARS-CoV-2 mRNA (tozinameran) vaccine FREDA SINGH MD [facility] Comment on above: Result Comment: 2023: [id number] 07-26-2019 zoster vaccine recombinant FREDA SINGH MD [facility] 05-24-2019 zoster vaccine recombinant FREDA SINGH MD [facility] 04-29-2017 zoster vaccine, live FREDA GARCIA MD [facility] 04-23-2016 tetanus and diphther ia toxoids, adsorbed, preservative free, for adult use (5 Lf of tetanus toxoid and 2 Lf of diphtheria toxoid) FREDA SINGH MD [facility] Payers Date Payer Category Payer Self-pay 2024 Medicare [id number] 2024 Private Health Insurance [id number] 2024 Medicare [id number] 2024 Unknown [id number] 2022 Unknown [id number] 1955 Unknown [id number] 2.16.8 40.1.980264.3.579.2.627 1955 Unknown [id number] 2.16.8 40.1.146039.3.579.2.627 1955 Unknown [id number] 2.16.8 40.1.252123.3.579.2.627 1955 Unknown [id number] 2.16.8 40.1.500690.3.579.2.627 1955 Unknown [id number] 2.16.8 40.1.224115.3.579.2.627 1955 Unknown [id number] 2.16. 840.1.370227.3.579.2.7 1955 Unknown [id number] 2.16.8 40.1.195131.3.579.2. 1955 Unknown [id number] 2.16.8 40.1.792998.3.579.2.7 1955 Unknown [id number] 2.16.8 40.1.250172.3.579.2. 1955 Unknown [id number] 2.16.8 40.1.241565.3.579.2.651 1955 Unknown [id number] 2.16.8 40.1.353868.3.579.2. 1955 Unknown [id number] 2.16.8 40.1.282820.3.579.2.65 1955 Unknown [id number] 2.16.8 40.1.891724.3.579.2.1 1955 Unknown [id number] 2.16.8 40.1.440043.3.579.2.651 1955 Unknown [id number] 2.16.8 40.1.630174.3.579.2.651 1955 Unknown [id number] 2.16.8 40.1.187250.3.579.2.651 1955 Unknown [id number] 2.16.8 40.1.124122.3.579.2.1 1955 Unknown [id number] 2.16.8 40.1.113353.3.579.2.651 1955 Unknown [id number] 2.16.8 40.1.914782.3.579.2.651 1955 Unknown [id number] 2.16.8 40.1.552627.3.579.2.651 1955 Unknown [id number] 2.16.8 40.1.308964.3.579.2.651 Unknown [id number] 2.16.8 40.1.471202.3.579.2.462 Unknown [id number] 2.16.8 40.1.057743.3.579.2.462 Social History Date Type Detail Facility Start: 10-18-2019 End: 02-07-2025 Tobacco smoking status Ex-smoker (finding) [facility] Comment on above: quit 38 years ago Sex Assigned At [facility] Start: 04-10-2024 Tobacco smoking stat [facility] Never smoked tobacco (finding) [facility] Start: 12-20-2024 Sex Male (finding) [facility]: 1955 Sex Assigned At Male [facility] Functional Status Date Assessment Result Facility 05-19-2024 Functional Status Single level home [facility] 05-19-2024 Functional Status Door open, Non-Slip footwear, Room check performed [facility] 05-19-2024 Functional Status [facility] 05-18-2024 Functional Status [facility] 05-18-2024 Functional Status Bed Bath Setup [facility] 05-18-2024 Functional Status Patient Identified Iden tification band [facility] 05-18-2024 Functional Status Maintained [facility] 05-11-2024 Functional Status Sensory Deficits None A [facility] 01-15-2024 Functional Status Room check performed [facility] 01-15-2024 Functional Status 7am-3pm [facility] 01-15-2024 Functional Status 90 [facility] 01-15-2024 Functional Status Supervised [facility] 01-15-2024 Functional Status [facility] 01-15-2024 Functional Status [facility] 01-15-2024 Functional Status [facility] 01-14-2024 Functional Status Min A [facility] 01-14-2024 Functional Status [facility] 01-14-2024 Functional Status [facility] 01-14-2024 Functional Status [facility] 01-14-2024 Functional Status [facility] 01-13-2024 Functional Status Sensory Deficits None A [facility] 11-15-2023 Functional Status Room check performed [facility] 11-15-2023 Functional Status [facility] 11-14-2023 Functional Status [facility] 11-14-2023 Functional Status 7am-7pm [facility] 11-14-2023 Functional Status Patient Identi fied Identification band, Verbal [facility] 11-14-2023 Functional Status Maintained, More than 8 hours [facility] 09-04-2023 Functional Status Independent [facility] 09-04-2023 Functional Status Room check performed [facility] 09-04-2023 Functional Status Maintained [facility] Mental Status Date Assessment Result Facility 05-19-2024 Mental Status Oriented x 4 [facility] 05-19-2024 Mental Status [facility] 05-18-2024 Mental Status Orientation Assessment Orie nted x 4 [facility] 05-18-2024 Mental Status [facility] 01-15-2024 Mental Status Oriented x 4 [facility] 01-14-2024 Mental Status [facility] 01-13-2024 Mental Status [facility] 11-15-2023 Mental Status Oriented x 4 [facility] 11-14-2023 Mental Status [facility] 11-14-2023 Mental Status [facility] 09-04-2023 Mental Status Orientation Oriented x 4 [facility] 09-04-2023 Mental Status [facility] 09-04-2023 Mental Status [facility] Clinical Notes 09-04-2023 to 02-14-2025 Note Date & Type Note Facility 02-14-2025 Hospital Discharge instructions Patient Education 02/14/2025 18:39:07 Moderate Conscious Sedation, Adult, Care After Moderate Conscious Sedation, Adult, Care After These instructions provide you with information about caring for yourself after your procedure. Your health care provider may also give you more specific instructions. Your treatment has been planned according to current medical practices, but problems sometimes occur. Call your health care provider if you have any problems or questions after your procedure. What can I expect after the procedure? After your procedure, it is common: To feel sleepy for several hours. To feel clumsy and have poor balance for several hours. To have poor judgment for several hours. To vomit if you eat too soon. Follow these instructions at home: For at least 24 hours after the procedure: Do not: ?Participate in activities where you could fall or become injured. ?Drive. ?Use heavy machinery. ?Drink alcohol. ?Take sleeping pills or medicines that cause drowsiness. ?Make important decisions or sign legal documents. ?Take care of children on your own. Rest. Eating and drinking Follow the diet recommended by your health care provider. If you vomit: ?Drink water, juice, or soup when you can drink without vomiting. ?Make sure you have little or no nausea before eating solid foods. General instructions Have a responsible adult stay with you until you are awake and alert. Take xjxi-jex-emldxsu and prescription medicines only as told by your health care provider. If you smoke, do not smoke without supervision. Keep all follow-up visits as told by your health care provider. This is important. Contact a health care provider if: You keep feeling nauseous or you keep vomiting. You feel light-headed. You develop a rash. You have a fever. Get help right away if: You have trouble breathing. This information is not intended to replace advice given to you by your health care provider. Make sure you discuss any questions you have with your health care provider. Document Released: 06/15/2014 Document Revised: 08/07/2018 Document Reviewed: 12/14/2016 [employer] Patient Education 2020 WhenSoon. 02/14/2025 18:39:07 3-- EP Study/Ablation (06/2018) (Custom) ELECTROPHYSIOLOGY STUDY/ABLATION Discharge Instructions DIET INSTRUCTIONS Resume diet as prior to procedure ACTIVITIES Do not drive FOR 24 HOURS No heavy lifting GREATER THAN 10 POUNDS or pushing or straining FOR 4 DAYS BATHING/SHOWERING May tub bathe in 4 days Do not sit in hot tub, whirlpool, or swim for 4 days May shower today WOUND CARE You may go home with a Band-Aid over your procedure site. Keep this Band-Aid on for the next 24 hours and then remove it leaving the site open to air. Some degree of bruising and tenderness is normal around the procedure site. It will take a while for any bruising to completely resolve. Keep your site clean and dry. You need to report the following to your fisher diver net: ?Any draining or oozing from the site ?Any swelling at the site ?Any increased pain or tenderness at the site ?Any numbness in your leg where the procedure was done ?Any sign of infection WATCH FOR SIGNS OF INFECTION: Elevated temperature above 100.5 Redness or swelling Increased pain Foul odor or drainage. If you have any questions, please call your doctor at the number listed on your follow up instructions. Follow all instructions given to you by your physician. Document Released: 08/25/2006 Document Revised: 08/11/2013 Document Reviewed: 08/26/2014 ExitCare Patient Information 2015 [employer]. This information is not intended to replace advice given to you by your health care provider. Make sure you discuss any questions you have with your health care provider. Follow Up Care 01/20/2025 11:36:45 With:DALIA HORVATH MD Address: [address] [place] [address]- [phone] When:04/06/2025 15:30:00 With:FREDA SINGH MD Address: [address] [place] [address]- [phone] When:05/12/2025 10:15:00 [facility] 02-14-2025 Summary of episode note Discharge Instructions Thank you for allowing [facility] to assist you with your healthcare needs. The following is important discharge information regarding your hospital visit. Your Care Team JUSTICE CARDENAS MD Your Diagnosis Atrial fibrillation What to do next Scheduled Follow-Up Appointments Appointment Type When With Where Contact Information StatusCV OV 04/06/2025 03:30 PM EDT SVETA HORVATH [facility] Confirmed CV OV 05/12/2025 10:15 AM EDT TRISHA SINGH [facility] Confirmed Follow Up Appointments Follow Up with DALIA HORVATH MD When:04/06/2025 03:30 PM EDT Where:[address] [place] [address]- [phone] Follow Up with FREDA SINGH MD When:05/12/2025 10:15 AM EDT Where:[address] [place] [address]- [phone] The Following Activity and Diet Have Been Ordered for You Discharge Activity - Ordered -- Other, No heavy lifting (>20 pounds) for the next 3 days, 02/14/25 18:09:00 EDT Discharge Diet - Ordered -- No changes were made to your diet during your hospital stay. Please resume your pre hospitalization diet on discharge., 02/14/25 18:09:00 EDT The Following Equipment Has Been Ordered for You No qualifying data available. The Following Treatments Have Been Ordered for You Discharge Labs No qualifying data available. Discharge Radiology No qualifying data available. Other Therapies No qualifying data available. Post Acute Orders No qualifying data available. Someone Will Contact You Regarding These Home Health Referrals No home referrals have been ordered for you. No one will call you. Allergies NKA Medications Please ask your primary doctor or pharmacist before taking any other medication not listed, including over the counter drugs, herbal medications, vitamins and or supplements as they may interact with your home medications. What How Much When Why Instructions Last Dose New apixaban (Eliquis 5 mg oral tablet) 1 tab(s) by mouth Every 12 hours Atrial fibrillation Unchanged acetaminophen (Tylenol 8 HR Arthritis Pain 650 mg oral tablet, extended release) 2 tab(s) by mouth Every 8 hours as needed for as needed for pain Unchanged aspirin (aspirin 81 mg oral delayed release tablet) 1 tab(s) by mouth Daily at bedtime Unchanged atorvastatin (atorvastatin 40 mg oral tablet) 1 tab(s) by mouth Daily at bedtime Unchanged losartan (losartan 50 mg oral tablet) 1 tab(s) by mouth Daily at bedtime Unchanged montelukast (montelukast 10 mg oral tablet) 1 tab(s) by mouth Daily at bedtime What How Much When Comments Stop Taking metoprolol (metoprolol succinate 25 mg oral TABLET extended release) 1 tab(s) by mouth Once a day Do not crush or chew (controlled release) Please take this list to your next doctor s visit. Bring all medications you take, including over the counter medications, herbals and other supplements with you to your doctor s visit. Patients and families are reminded to discard old lists and to update any records with all medication providers or retail pharmacies. Education Materials Moderate Conscious Sedation, Adult, Care After These instructions provide you with information about caring for yourself after your procedure. Your health care provider may also give you more specific instructions. Your treatment has been planned according to current medical practices, but problems sometimes occur. Call your health care provider if you have any problems or questions after your procedure. What can I expect after the procedure? After your procedure, it is common: To feel sleepy for several hours. To feel clumsy and have poor balance for several hours. To have poor judgment for several hours. To vomit if you eat too soon. Follow these instructions at home: For at least 24 hours after the procedure: Do not: ? Participate in activities where you could fall or become injured. ? Drive. ? Use heavy machinery. ? Drink alcohol. ? Take sleeping pills or medicines that cause drowsiness. ? Make important decisions or sign legal documents. ? Take care of children on your own. Rest. Eating and drinking Follow the diet recommended by your health care provider. If you vomit: ? Drink water, juice, or soup when you can drink without vomiting. ? Make sure you have little or no nausea before eating solid foods. General instructions Have a responsible adult stay with you until you are awake and alert. Take hedc-ybi-efrhjpp and prescription medicines only as told by your health care provider. If you smoke, do not smoke without supervision. Keep all follow-up visits as told by your health care provider. This is important. Contact a health care provider if: You keep feeling nauseous or you keep vomiting. You feel light-headed. You develop a rash. You have a fever. Get help right away if: You have trouble breathing. This information is not intended to replace advice given to you by your health care provider. Make sure you discuss any questions you have with your health care provider. Document Released: 06/15/2014 Document Revised: 08/07/2018 Document Reviewed: 12/14/2016 [employer] Patient Education 2020 WhenSoon. ELECTROPHYSIOLOGY STUDY/ABLATION Discharge Instructions DIET INSTRUCTIONS Resume diet as prior to procedure ACTIVITIES Do not drive FOR 24 HOURS No heavy lifting GREATER THAN 10 POUNDS or pushing or straining FOR 4 DAYS BATHING/SHOWERING May tub bathe in 4 days Do not sit in hot tub, whirlpool, or swim for 4 days May shower today WOUND CARE You may go home with a Band-Aid over your procedure site. Keep this Band-Aid on for the next 24 hours and then remove it leaving the site open to air. Some degree of bruising and tenderness is normal around the procedure site. It will take a while for any bruising to completely resolve. Keep your site clean and dry. You need to report the following to your fisher diver net: ? Any draining or oozing from the site ? Any swelling at the site ? Any increased pain or tenderness at the site ? Any numbness in your leg where the procedure was done ? Any sign of infection WATCH FOR SIGNS OF INFECTION: Elevated temperature above 100.5 Redness or swelling Increased pain Foul odor or drainage. If you have any questions, please call your doctor at the number listed on your follow up instructions. Follow all instructions given to you by your physician. Document Released: 08/25/2006 Document Revised: 08/11/2013 Document Reviewed: 08/26/2014 ExitCare Patient Information 2015 [employer]. This information is not intended to replace advice given to you by your health care provider. Make sure you discuss any questions you have with your health care provider. Additional Information VACCINATE! IT SAVES LIVES! Members of the community who have not yet received the COVID-19 vaccine and would like to receive it can visit one of [facility] vaccine clinics. There are many vaccine clinic locations within the [facility]. For locations and available times, please visit [email or web address] It is important to note that some COVID mobile vaccine clinics are held outdoors and may be canceled in rainy or stormy conditions. To learn more about pediatric vaccinations (ages 5-11), we invite you to visit the [facility] webpage. [email or web address]/pages [email or web address] [email or web address].html To learn more about the COVID-19 vaccine, we invite you to visit the CDC website for a list of frequently asked questions.https://www.cdc.gov/estrada virus/2019-ncov/vaccines/faq.html [facility] Patient Portal Access Instructions: Stay connected with your healthcare team and access your personal medical information anytime with the [employer] Patient Portal. Please follow the directions below to create your [employer] account: 1.Access the email account you provided upon registration to the hospital/physician office.2.Look for an invitation email from [facility].3.Open the email and access the invitation link: Accept Invitation to [facility].4.Fill in the required loera to create your account. To access your account, visit [email or web address]. Click the blue button labeled Access Patient Portal and then log in with the username and password that you created in the steps above. You will be able to view your test results, lab results, a summary of your visits, upcoming appointments and more. There is also a convenient messaging option where you can send secure messages to your provider. In addition, you will have the ability to download any documents or summaries to your computer and/or send the information securely to a physician. Remember that your healthcare information is confidential, so carefully consider who you will allow to register on the [facility] Patient Portal for access to your information. You can also access the [facility] Patient Portal on the [facility] [employer] alistair. Simply click on Patient Portal and then log into your account. If you would like to receive a full copy of your medical records,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 ointment, take the antibiotic or put it onthe cut as told by your doctor. Do not stop taking or putting on the antibiotic even if your condition gets better. Take outt-uop-uahtdcx and prescription medicines only as told by your doctor. General instructions Limit movement around your cut. This helps healing. ?Avoid straining, lifting, or exercise for the first month, or for as long as told by your doctor. ?Follow instructions from your doctor about going back to your normal activities. ?Ask your doctor what activities are safe. Protect your cut from the sun when you are outside for the first 6 months, or for as long as told by your doctor. Put on sunscreen around the scar or cover up the scar. Keep all follow-up visits as told by your doctor. This is important. Contact a doctor if: Your have more redness, swelling, or pain around the cut. You have more fluid or blood coming from the cut. Your cut feels warm to the touch. You have pus or a bad smell coming from the cut. You have a fever or shaking chills. You feel sick to your stomach (nauseous) or you throw up (vomit). You are dizzy. Your stitches or mary come undone. Get help right away if: You have a red streak coming from your cut. Your cut bleeds through the bandage and the bleeding does not stop with gentle pressure. The edges of your cut open up and separate. You have very bad (severe) pain. You have a rash. You are confused. You pass out (faint). You have trouble breathing and you have a fast heartbeat. This information is not intended to replace advice given to you by your health care provider. Make sure you discuss any questions you have with your health care provider. Document Released: 11/16/2012 Document Revised: 01/12/2018 Document Reviewed: 05/02/2017 [employer] Patient Education 2020 [employer]Soon. Follow Up Care 04/28/2024 08:06:57 With:JUSTICE CARDENAS MD, Internal Medicine Address: [address] [place] [address]- When: Unknown With:STEVE RAYA APRN-[facility] Address: [address] [facility] [address] [facility] [place] [address]- [phone] When:07/08/2024 13:00:00 Comments:Our office will call you regarding your follow-up testing/appointment from Watchman placement. With:DALIA HORVATH MD Address: [address] [facility] [place] [address]- [phone] When:07/14/2024 13:00:00 Comments:KEEP THIS PREVIOUSLY SCHEDULED APPOINTMENT. [facility] 09-11-2024 Note Discharge Instructions Thank you for allowing [facility] to assist you with your healthcare needs. The following is importantdischarge information regarding your hospital visit. Your Care Team JUSTICE CARDENAS MD Your Diagnosis Atrial fibrillation Bleeding diathesis Hypertension RADHA on CPAP Presence of Watchman left atrial appendage closure device What to do next Instructions From Your Doctor - No heavy lifting, pushing, or pulling more than 10 lb for 3-4 days - May shower starting tomorrow. No tub bathing/swimming pool/hot tub until groin site completely healed - Wash groin sites at least once a day with new washcloth and antibacterial soap for 1 week or until healed - Do not apply any cream, powder, or lotion to area until completely healed - If present, may remove dressings on groin sites while in shower tomorrow. May leave open to air or cover with loose gauze dressing - Our office will contact you with the date/time for your 6 week follow-up CELE (transesophageal echocardiogram). Please call if you have not heard from us in 3-4 weeks. - Medication changes: NONE - Continue your Eliquis - Please call Steve (nurse practitioner) [phone] with questions/concerns regarding procedureor follow-up. Scheduled Follow-Up Appointments Appointment Type When With Where Contact Information StatusCV OV 07/08/2024 01:00 PM EDT STEVE RAYA [facility] Confirmed CV OV 07/14/2024 01:00 PM EST [facility] Confirmed Follow Up Appointments Follow Up with JUSTICE CARDENAS MD, Internal Medicine Where:[address] [place] [address]- Follow Up with STEVE RAYA When:07/08/2024 01:00 PM EDT Where:[address] [facility] [place] [address] [phone] Additional Information: Our office will call you regarding your follow-up testing/appointment from Watchman placement. Follow Up with DALIA HORVATH MD When:07/14/2024 01:00 PM EST Where:[address] [place] [address]- [phone] Additional Information: KEEP THIS PREVIOUSLY SCHEDULED APPOINTMENT. The Following Activity and Diet Have Been Ordered for You Discharge Activity - Ordered -- Lifting Restricted less than 10 pounds, No pushing, pulling, or lifting more than 10 lb for 3-4 days Driving restricted for 2 days. May shower starting tomorrow., 05/19/24 8:37:00 EDT Discharge Diet - Ordered -- Type of Diet: Regular Diet, No changes were made to your diet during your hospital stay. Please resume your pre hospitalization diet on discharge., 05/19/24 8:37:00 EDT The Following Equipment Has Been Ordered for You Discharge Home Equipment Discharge Wound Care - Ordered -- Keep groin site(s) clean and dry until healed. Wash at least once a day with antibacterial soap., 05/19/24 8:37:00 EDT The Following Treatments Have Been Ordered for You Discharge Labs No qualifying data available. Discharge Radiology No qualifying data available. Other Therapies No qualifying data available. Post Acute Orders No qualifying data available. Someone Will Contact You Regarding These Home Health Referrals No home referrals have been ordered for you. No one will call you. Allergies NKA Medications Please ask your primary doctor or pharmacist before taking any other medication not listed, including over the counter drugs, herbal medications, vitamins and or supplements as they may interact withyour home medications. What How Much When Instructions Last Dose Unchanged acetaminophen (Tylenol 8 HR Arthritis Pain 650 mg oral tablet, extended release) 2 tab(s) by mouth Every 8 hours as needed for as needed for pain Unchanged apixaban (Eliquis 5 mg oral tablet) 1 tab(s) by mouth Two (2) times a day Unchanged ascorbic acid (Vitamin C 1000 mg oral tablet) 1 tab(s) by mouth Once a day (in the morning) Unchanged aspirin (aspirin 81 mg oral delayed release tablet) 1 tab(s) by mouth Once a day (in the morning) Unchanged atorvastatin (atorvastatin 40 mg oral tablet) 1 tab(s) by mouth Daily at bedtime Unchanged cholecalciferol (Vitamin D3 25 mcg (1000 intl units) oral capsule) 1 cap by mouth Once a day (in the morning) Unchanged losartan (losartan 50 mg oral tablet) 1 tab(s) by mouth Daily at bedtime Unchanged metoprolol (metoprolol succinate 25 mg oral TABLET extended release) 0.5 tab(s) by mouth Daily at bedtime Do not crush or chew (controlled release) Please take this list to your next doctor s visit. Bring all medications you take, including over the counter medications, herbals and other supplements with you to your doctor s visit. Patients and families are reminded to discard old lists and to update any records with all medication providers or retail pharmacies. Education Materials Incision Care, Adult An incision is a cut that a doctor makes in your skin for surgery (for a procedure). Most times, these cuts are closed after surgery. Your cut from surgery may be closed with stitches (sutures), mary, skin glue, or skin tape (adhesive strips). You may need to return to your doctor to have stitches or mary taken out. This may happen many days or many weeks after your surgery. The cut needs to be well cared for so it does not get infected. How to care for your cut Cut care Follow instructions from your doctor about how to take care of your cut. Make sure you: ? Wash your hands with soap and water before you change your bandage (dressing). If you cannot use soap and water, use hand aviation survival technician. ? Change your bandage as told by your doctor. ? Leave stitches, skin glue, or skin tape in place. They may need to stay in place for 2 weeks or longer. If tape strips get loose and curl up, you may trim the loose edges. Do not remove tape strips completely unless your doctor says it is okay. Check your cut area every day for signs of infection. Check for: ? More redness, swelling, or pain. ? More fluid or blood. ? Warmth. ? Pus or a bad smell. Ask your doctor how to clean the cut. This may include: ? Using mild soap and water. ? Using a clean towel to pat the cut dry after you clean it. ? Putting a cream or ointment on the cut. Do this only as told by your doctor. ? Covering the cut with a clean bandage. Ask your doctor when you can leave the cut uncovered. Do not take baths, swim, or use a hot tub until your doctor says it is okay. Ask your doctor if youcan take showers. You may only be allowed to take sponge baths for bathing. Medicines If you were prescribed an antibiotic medicine, cream, or ointment, take the antibiotic or put it onthe cut as told by your doctor. Do not stop taking or putting on the antibiotic even if your condition gets better. Take fgpn-rhg-ndkudnh and prescription medicines only as told by your doctor. General instructions Limit movement around your cut. This helps healing. ? Avoid straining, lifting, or exercise for the first month, or for as long as told by your doctor. ? Follow instructions from your doctor about going back to your normal activities. ? Ask your doctor what activities are safe. Protect your cut from the sun when you are outside for the first 6 months, or for as long as told by your doctor. Put on sunscreen around the scar or cover up the scar. Keep all follow-up visits as told by your doctor. This is important. Contact a doctor if: Your have more redness, swelling, or pain around the cut. You have more fluid or blood coming from the cut. Your cut feels warm to the touch. You have pus or a bad smell coming from the cut. You have a fever or shaking chills. You feel sick to your stomach (nauseous) or you throw up (vomit). You are dizzy. Your stitches or mary come undone. Get help right away if: You have a red streak coming from your cut. Your cut bleeds through the bandage and the bleeding does not stop with gentle pressure. The edges of your cut open up and separate. You have very bad (severe) pain. You have a rash. You are confused. You pass out (faint). You have trouble breathing and you have a fast heartbeat. This information is not intended to replace advice given to you by your health care provider. Make sure you discuss any questions you have with your health care provider. Document Released: 11/16/2012 Document Revised: 01/12/2018 Document Reviewed: 05/02/2017 [employer] Patient Education 2020 [employer] Additional Information VACCINATE! IT SAVES LIVES! Members of the community who have not yet received the COVID-19 vaccine and would like to receive it can visit one of [facility] vaccine clinics. There are many vaccine clinic locations within the [facility]. For locations and available times, please visit https://gettheshot.coronavirus.[place].gov/. It is important to note that some COVID mobile vaccine clinics are held outdoors and may be canceled in rainy or stormy conditions. To learn more about pediatric vaccinations (ages 5-11), we invite you to visit the [facility] webpage. https://www.[email or web address].org/pages/8624-Xpvkg-Wsezyovfqba-Frdhfrupnm-[email or web address] stions.htmlTo learn more about the COVID-19 vaccine, we invite you to visit the CDC website for a list of frequently asked questions.https://www.cdc.gov/coronavirus/2019-ncov/vaccines/faq.html [facility] Patient Portal Access Instructions: Stay connected with your healthcare team and access your personal medical information anytime with the [facility] Patient Portal. Please follow the directions below to create your [facility] account: 1.Access the email account you provided upon registration to the hospital/physician office.2.Look for an invitation email from [facility].3.Open the email and access the invitation link: AcceptInvitation to [facility].4.Fill in the required loera to create your account. To access your account, visit [employer]. Click the blue button labeled Access Patient Portal and then log in with the username and password that you created in the steps above. You will be able to view your test results, lab results, a summary of your visits, upcoming appointments and more. There is also a convenient messaging option where you can send secure messages to your p rovider. In addition, you will have the ability to download any documents or summaries to your computer and/or send the information securely to a physician. Remember that your healthcare information is confidential, so carefully consider who you will allowto register on the [facility] Patient Portal for access to your information. You can also access the [facility] Patient Portal on the [facility] alistair. Simply click on Patient Portal and then log into your account. If you would like to receive a full copy of your medical records, please contact the [facility] Medical Records Department by calling [phone], Friday through Friday between 8 a.m. and 4:30 p.m. HOW TO SAFELY DISPOSE OF PRESCRIPTION MEDICATIONS Please use one of the following methods to safely dispose of your unused medications. 1.Use a drug disposal kit: the drug disposal pouch allows you to safely discard your old and unuseddrugs. Ask your nurse to give you one when you are discharged.2.Visit a local take-back location: Many local pharmacies and police departments have programs that collect old and unwanted prescriptiondrugs. Call your local pharmacy or go to http://[employer].ServiceMax/3E6Dy7a to find one close to you.3.Make use of household items: Use cat litter or old coffee grounds to dispose medications if other options arenot available. Mix your drugs with these household products, seal them in an airtight container andthrow it into the garbage. Call [facility]: [phone] to be sure your drugs can be disposed of in this way. Some medicines may require a different approach.4.Never flush your medications down the toilet. IF YOU HAVE BEEN PRESCRIBED AN OPIOID FOR PAIN If you have been prescribed an opioid (such as hydrocodone, oxycodone or morphine), it is critical to understand the possible side effects and risks of opioid pain medications. Even when taken as directed, opioids can have several side effects including: Tolerance, meaning you might need to take more of a medication for the same pain relief. Nausea, vomiting and/or constipation. Sleepiness, dizziness, dry mouth, confusion, depression or itching. Physical dependence, meaning you have withdrawal symptoms when a medication is stopped, can develop within a few days. KNOW YOUR RESPONSIBILITIES It is important to know exactly how much and how often to take the opioid pain medications you are prescribed. Never take opioids in higher amounts or more often than prescribed. Do not combine opioids with alcohol or other drugs that cause drowsiness, such as benzodiazepines, also known as benzos, including diazepam and alprazolam, muscle relaxants or sleep aids. Never sell or share prescription opioids. This is illegal. Store opioids in a secure place and out of reach of others (including children, family, friends and visitors). The last page of this document has been signed and retained as a CHART COPY. Signatures Patient Education Materials Incision Care, Adult, Trtm-fy-Edbw Medication Leaflets My discharge plan and instructions have been reviewed and explained to me and I,RUDDY RICH understand my current condition and have read and understand these discharge instructions. I have received a written copy of the plan/instructions. If I have questions, I am aware that I should contact my doctor. 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 Patient location: same day surgery. Assessment Postanesthesia assessment Vitals: Vital signs from flowsheet : Vital Signs 05/18/2024 9:30 EDT Respiratory Rate - Anes 0 br/min br/min 05/18/2024 9:25 EDT Heart Rate Monitored 59 bpm bpm Respiratory Rate - Anes 10 br/min br/min 05/18/2024 9:20 EDT Temperature (Route Not Specified) 35.97 DegC DegC Heart Rate Monitored 62 bpm bpm Respiratory Rate - Anes 7 br/min br/min 05/18/2024 9:15 EDT Temperature (Route Not Specified) 35.91 DegC DegC Heart Rate Monitored 58 bpm bpm Respiratory Rate - Anes 13 br/min br/min 05/18/2024 9:10 EDT Temperature (Route Not Specified) 35.87 DegC DegC Heart Rate Monitored 55 bpm bpm Respiratory Rate - Anes 13 br/min br/min 05/18/2024 9:05 EDT Temperature (Route Not Specified) 35.85 DegC DegC Heart Rate Monitored 54 bpm bpm Respiratory Rate - Anes 13 br/min br/min 05/18/2024 9:04 EDT Systolic Blood Pressure Non-Invasive 102 mmHg mmHg Diastolic Blood Pressure Non-Invasive 63 mmHg mmHg 05/18/2024 9:00 EDT Temperature (Route Not Specified) 35.81 DegC DegC Heart Rate Monitored 56 bpm bpm Respiratory Rate - Anes 14 br/min br/min 05/18/2024 8:55 EDT Temperature (Route Not Specified) 35.8 DegC DegC Heart Rate Monitored 55 bpm bpm Respiratory Rate - Anes 14 br/min br/min 05/18/2024 8:50 EDT Temperature (Route Not Specified) 35.78 DegC DegC Heart Rate Monitored 55 bpm bpm Respiratory Rate - Anes 14 br/min br/min 05/18/2024 8:45 EDT Temperature (Route Not Specified) 35.75 DegC DegC Heart Rate Monitored 67 bpm bpm Respiratory Rate - Anes 14 br/min br/min 05/18/2024 8:40 EDT Temperature (Route Not Specified) 35.75 DegC DegC Heart Rate Monitored 55 bpm bpm Respiratory Rate - Anes 14 br/min br/min 05/18/2024 8:35 EDT Temperature (Route Not Specified) 35.8 DegC DegC Heart Rate Monitored 56 bpm bpm Respiratory Rate - Anes 14 br/min br/min 05/18/2024 8:30 EDT Temperature (Route Not Specified) 35.79 DegC DegC Heart Rate Monitored 59 bpm bpm Respiratory Rate - Anes 14 br/min br/min 05/18/2024 8:25 EDT Temperature (Route Not Specified) 35.82 DegC DegC Heart Rate Monitored 56 bpm bpm Respiratory Rate - Anes 13 br/min br/min 05/18/2024 8:20 EDT Temperature (Route Not Specified) 35.91 DegC DegC Heart Rate Monitored 59 bpm bpm Respiratory Rate - Anes 13 br/min br/min 05/18/2024 8:15 EDT Temperature (Route Not Specified) 35.88 DegC DegC Heart Rate Monitored 61 bpm bpm Respiratory Rate - Anes 13 br/min br/min 05/18/2024 8:10 EDT Temperature (Route Not Specified) 35.9 DegC DegC Heart Rate Monitored 57 bpm bpm Respiratory Rate - Anes 13 br/min br/min 05/18/2024 8:05 EDT Temperature (Route Not Specified) 35.83 DegC DegC Heart Rate Monitored 57 bpm bpm Respiratory Rate - Anes 14 br/min br/min 05/18/2024 8:04 EDT Systolic Blood Pressure Non-Invasive 88 mmHg mmHg Diastolic Blood Pressure Non-Invasive 55 mmHg mmHg 05/18/2024 8:01 EDT Systolic Blood Pressure Non-Invasive 85 mmHg mmHg Diastolic Blood Pressure Non-Invasive 54 mmHg mmHg 05/18/2024 8:00 EDT Heart Rate Monitored 56 bpm bpm Respiratory Rate - Anes 12 br/min br/min 05/18/2024 7:58 EDT Systolic Blood Pressure Non-Invasive 95 mmHg mmHg Diastolic Blood Pressure Non-Invasive 56 mmHg mmHg 05/18/2024 7:56 EDT Systolic Blood Pressure Non-Invasive 97 mmHg mmHg Diastolic Blood Pressure Non-Invasive 56 mmHg mmHg 05/18/2024 7:55 EDT Heart Rate Monitored 59 bpm bpm Respiratory Rate - Anes 12 br/min br/min 05/18/2024 7:52 EDT Systolic Blood Pressure Non-Invasive 124 mmHg mmHg Diastolic Blood Pressure Non-Invasive 64 mmHg mmHg 05/18/2024 7:50 EDT Heart Rate Monitored 61 bpm bpm Respiratory Rate - Anes 12 br/min br/min 05/18/2024 7:49 EDT Systolic Blood Pressure Non-Invasive 147 mmHg mmHg Diastolic Blood Pressure Non-Invasive 80 mmHg mmHg 05/18/2024 7:46 EDT Systolic Blood Pressure Non-Invasive 116 mmHg mmHg Diastolic Blood Pressure Non-Invasive 66 mmHg mmHg 05/18/2024 7:45 EDT Heart Rate Monitored 61 bpm bpm Respiratory Rate - Anes 3 br/min br/min Systolic Blood Pressure Non-Invasive 156 mmHg mmHg Diastolic Blood Pressure Non-Invasive 72 mmHg mmHg 05/18/2024 7:40 EDT Respiratory Rate - Anes 0 br/min br/min 05/18/2024 7:35 EDT Respiratory Rate - Anes 0 br/min br/min 05/18/2024 5:58 EDT Temperature Oral 36.7 DegC Peripheral Pulse Rate 60 bpm Respiratory Rate 16 br/min Systolic Blood Pressure Non-Invasive 168 mmHg HI Diastolic Blood Pressure Non-Invasive 82 mmHg , Oxygen Therapy : Oxygen Therapy & Oxygenation Information 05/18/2024 9:25 EDT Oxygen Saturation 99 % % 05/18/2024 9:20 EDT Oxygen Saturation 98.9 % % 05/18/2024 9:15 EDT Oxygen Saturation 98.8 % % 05/18/2024 9:10 EDT Oxygen Saturation 98.8 % % 05/18/2024 9:05 EDT Oxygen Saturation 98.9 % % 05/18/2024 9:00 EDT Oxygen Saturation 98.9 % % 05/18/2024 8:55 EDT Oxygen Saturation 98.9 % % 05/18/2024 8:50 EDT Oxygen Saturation 98.9 % % 05/18/2024 8:45 EDT Oxygen Saturation 98.7 % % 05/18/2024 8:40 EDT Oxygen Saturation 98.9 % % 05/18/2024 8:35 EDT Oxygen Saturation 98.9 % % 05/18/2024 8:30 EDT Oxygen Saturation 98.8 % % 05/18/2024 8:25 EDT Oxygen Saturation 99 % % 05/18/2024 8:20 EDT Oxygen Saturation 99 % % 05/18/2024 8:15 EDT Oxygen Saturation 99 % % 05/18/2024 8:10 EDT Oxygen Saturation 99 % % 05/18/2024 8:05 EDT Oxygen Saturation 99.2 % % 05/18/2024 8:00 EDT Oxygen Saturation 99.3 % % 05/18/2024 7:55 EDT Oxygen Saturation 99.5 % % 05/18/2024 7:50 EDT Oxygen Saturation 99.8 % % 05/18/2024 7:45 EDT Oxygen Saturation 100 % % 05/18/2024 5:58 EDT Oxygen Therapy Room air Oxygen Saturation 97 % . Mental status: at preoperative baseline. Respiratory function: respirations are non-labored, Stable. Respiratory support: none. CV function: Stable. Cardiovascular support: none. Pain: Satisfactory. Nausea status: Satisfactory. Postoperative hydration status: within normal limits. Notes: Patient is sufficiently recovered from anesthesia to participate in the evaluation. No follow-up care needed. No complications post-anesthesia.. Digitally Signed by JORDAN CANALES MD on 05/18/2024 09:47 AM [facility] [id number] NoteSINUS RHYTHM Electronic Signature: DARSHANA GARCIA MD 05/19/2024 12:38:59[facility] 09-10-2024 Note* Exam Date Time Procedure Performing Provider Status 05/18/24 7:59 AM Left Atrial Closure Device-CV Auth (Verified) [facility] 09-10-2024 Anesthesiology Consult note Patient: RUDDY RICH Age: 68 years Sex: Male : 1955 Associated Diagnoses: None Author: JORDAN CANALES MD Preoperative Information Greater than 6 hours Anesthesia history Patient's history: negative. Family's history: negative. Review of Systems Ear/Nose/Mouth/Throat: Negative except as documented in history of present illness. Respiratory: Negative except as documented in history of present illness. Cardiovascular: Negative except as documented in history of present illness. Gastrointestinal: Negative except as documented in history of present illness. Genitourinary: Negative except as documented in history of present illness. Endocrine: Negative except as documented in history of present illness. Musculoskeletal: Negative except as documented in history of present illness. Integumentary: Negative except as documented in history of present illness. Neurologic: Negative except as documented in history of present illness. Health Status Allergies: Allergic Reactions (Selected) NKA, Allergies (1) ActiveSeverityReaction NKANone Documented Current medications: (Selected) Inpatient Medications Ordered Kefzol: 2 gram(s), 20 mL, 240 mL/hr, IV Push (INT), PREOP pharm Prescriptions Prescribed Eliquis 5 mg oral tablet: 5 mg, 1 tab(s), Oral, BID, 180 tab(s), 3 Refill(s) aspirin 81 mg oral delayed release tablet: 81 mg, 1 tab(s), Oral, qAM, 90 tab(s), 3 Refill(s) atorvastatin 40 mg oral tablet: 40 mg, 1 tab(s), Oral, qHS, 100 tab(s), 2 Refill(s) losartan 50 mg oral tablet: 1 tab(s), Oral, qHS, 90 tab(s), 3 Refill(s) metoprolol succinate 25 mg oral TABLET extended release: 12.5 mg, 0.5 tab(s), Oral, qHS, Do not crush or chew (controlled release), 15 tab(s), 5 Refill(s) Documented Medications Documented Tylenol 8 HR Arthritis Pain 650 mg oral tablet, extended release: 1,300 mg, 2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 over the counter medications, herbals and other supplements with you to your doctor s visit. Patients and families are reminded to discard old lists and to update any records with all medication providers or retail pharmacies. Medication Leaflets metoprolol (oral/injection) (me TOE pro lol) Kapspargtaniya Sprinkle, Lopressor, Metoprolol Succinate ER, Metoprolol Tartrate, Toprol-XL What is the most important information I should know about metoprolol? You should not use this medicine if you have a serious heart problem (heart block, sick sinus syndrome, slow heart rate), severe circulation problems, severe heart failure, or a history of slow heartbeats that caused fainting. What is metoprolol? Metoprolol is a beta-chela that affects the heart and circulation (blood flow through arteries and veins). Metoprolol is used to treat angina (chest pain) and hypertension (high blood pressure). It is also used to lower your risk of or needing to be hospitalized for heart failure. Metoprolol injection is used during the early phase of a heart attack to lower the risk of . Metoprolol may also be used for other purposes not listed in this medication guide. What should I discuss with my healthcare provider before taking metoprolol? You should not use this medicine if you are allergic to metoprolol, or other beta-blockers (atenolol, carvedilol, labetalol, nadolol, nebivolol, propranolol, sotalol, and others), or if you have: a serious heart problem such as heart block, sick sinus syndrome, or slow heart rate; severe circulation problems; severe heart failure (that required you to be in the hospital); or a history of slow heart beats that have caused you to faint. Tell your doctor if you have ever had: asthma, chronic obstructive pulmonary disease (COPD), sleep apnea, or other breathing disorder; diabetes (taking metoprolol may make it harder for you to tell when you have low blood sugar); liver disease; congestive heart failure; problems with circulation (such as Raynaud's syndrome); a thyroid disorder; or pheochromocytoma (tumor of the adrenal gland). Do not give this medicine to a child without medical advice. Tell your doctor if you are or plan to become . It is not known whether metoprololwill harm an unborn baby. However, having high blood pressure during may cause complications such as diabetes or eclampsia (dangerously high blood pressure that can lead to medical problemsin both mother and baby). The benefit of treating hypertension may outweigh any risks to the baby. Ask a doctor before using this medicine if you are breast-feeding. Metoprolol can pass into breast milk and may cause dry skin, dry mouth, diarrhea, constipation, or slow heartbeats in your baby. How should I take metoprolol? Follow all directions on your prescription label and read all medication guides or instruction sheets. Your doctor may occasionally change your dose. Use the medicine exactly as directed. Metoprolol should be taken with a meal or just after a meal. Take the medicine at the same time each day. Swallow the capsule whole and do not crush, chew, break, or open it. A Toprol XL tablet can be divided in half if your doctor has told you to do so. Swallow the half-tablet whole, without chewing or crushing. Measure liquid medicine carefully. Use the dosing syringe provided, or use a medicine dose-measuring device (not a kitchen spoon). You will need frequent medical tests, and your blood pressure will need to be checked often. If you need surgery, tell the surgeon ahead of time that you are using metoprolol. You should not stop using metoprolol suddenly. Stopping suddenly may make your condition worse. If you have high blood pressure, keep using this medicine even if you feel well. High blood pressure often has no symptoms. You may need to use metoprolol for the rest of your life. Store at room temperature away from moisture and heat. Metoprolol injection is given as an infusion into a vein. A healthcare provider will give you this injection in a medical setting where your heart and blood pressure can be monitored. Metoprolol injections are given for only a short time before switching you to the oral form of this medicine. What happens if I miss a dose? Skip the missed dose and use your next dose at the regular time. Do not use two doses at one time. What happens if I overdose? Seek emergency medical attention or call the Poison Help line at . What should I avoid while taking metoprolol? Avoid driving or hazardous activity until you know how this medicine will affect you. Your reactions could be impaired. Drinking alcohol can increase certain side effects of metoprolol. What are the possible side effects of metoprolol? Get emergency medical help if you have signs of an allergic reaction: hives; difficulty breathing; swelling of your face, lips, tongue, or throat. Call your doctor at once if you have: very slow heartbeats; a light-headed feeling, like you might pass out; shortness of breath (even with mild exertion), swelling, rapid weight gain; or cold feeling in your hands and feet. Common side effects may include: dizziness, tired feeling; depression, confusion, memory problems; nightmares, trouble sleeping; diarrhea; or mild itching or rash. This is not a complete list of side effects and others may occur. Call your doctor for medical advice about side effects. You may report side effects to FDA at 9-100-OLR-2163. What other drugs will affect metoprolol? Tell your doctor about all your current medicines. Many drugs can affect metoprolol, especially: any other heart or blood pressure medications; epinephrine (Epi-Pen); an antidepressant; an ergot medicine--dihydroergotamine, ergonovine, ergotamine, methylergonovine; or an MAO inhibitor--isocarboxazid, linezolid, phenelzine, rasagiline, selegiline, tranylcypromine. This list is not complete and many other drugs may affect metoprolol. This includes prescription and tfon-tlf-[id number] medicines, vitamins, and herbal products. Not all possible drug interactions are listed here. Where can I get more information? Your pharmacist can provide more information about metoprolol. Remember, keep this and all other medicines out of the reach of children, never share your medicines with others, and use this medication only for the indication prescribed. Every effort has been made to ensure that the information provided by [employer]. ('[employer]') is accurate, up-to-date, and complete, but no guarantee is made to that effect. Drug information contained herein may be time sensitive. [employer] information has been compiled for use by healthcare practitioners and consumers in the [place] and therefore [employer] does not warrant that uses outside of the [place] are appropriate, unless specifically indicated otherwise. [employer] drug information does not endorse drugs, diagnose patients or recommend therapy. [employer] drug information isan informational resource designed to assist licensed healthcare practitioners in caring for their p atients and/or to serve consumers viewing this service as a supplement to, and not a substitute for, the expertise, skill, knowledge and judgment of healthcare practitioners. The absence of a warningfor a given drug or drug combination in no way should be construed to indicate that the drug or drug combination is safe, effective or appropriate for any given patient. [employer] does not assume any responsibility for any aspect of healthcare administered with the aid of information [employer] provides. The information contained herein is not intended to cover all possible uses, directions, precautions, warnings, drug interactions, allergic reactions, or adverse effects. If you have questions about the drugs you are taking, check with your doctor, nurse or pharmacist. Copyright 4735-3508 [employer]. Version: 19.01. Revision Date: 04/16/2023. Education Materials Cardiac Ablation Cardiac ablation is a procedure to stop some heart tissue from causing problems. The heart has manyelectrical connections. Sometimes these connections make the heart beat very fast or irregularly. Removing some problem areas can improve the heart rhythm or make it normal. What happens before the procedure? Follow instructions from your doctor about what you cannot eat or drink. Ask your doctor about: ? Changing or stopping your normal medicines. This is important if you take diabetes medicines or blood thinners. ? Taking medicines such as aspirin and ibuprofen. These medicines can thin your blood. Do not take these medicines before your procedure if your doctor tells you not to. Plan to have someone take you home. If you will be going home right after the procedure, plan to have someone with you for 24 hours. What happens during the procedure? To lower your risk of infection: ? Your health care team will wash or sanitize their hands. ? Your skin will be washed with soap. ? Hair may be removed from your neck or groin. An IV tube will be put into one of your veins. You will be given a medicine to help you relax (sedative). Skin on your neck or groin will be numbed. A cut (incision) will be made in your neck or groin. A needle will be put through your cut and into a vein in your neck or groin. A tube (catheter) will be put into the needle. The tube will be moved to your heart. X-rays (fluoroscopy) will be used to help guide the tube. Small devices (electrodes) on the tip of the tube will send out electrical currents. Dye may be put through the tube. This helps your surgeon see your heart. Electrical energy will be used to scar (ablate) some heart tissue. Your surgeon may use: ? Heat (radiofrequency energy). ? Laser energy. ? Extreme cold (cryoablation). The tube will be taken out. Pressure will be held on your cut. This helps stop bleeding. A bandage (dressing) will be put on your cut. The procedure may vary. What happens after the procedure? You will be monitored until your medicines have worn off. Your cut will be watched for bleeding. You will need to lie still for a few hours. Do not drive for 24 hours or as long as your doctor tells you. Summary Cardiac ablation is a procedure to stop some heart tissue from causing problems. Electrical energy will be used to scar (ablate) some heart tissue. This information is not intended to replace advice given to you by your health care provider. Make sure you discuss any questions you have with your health care provider. Document Released: 04/27/2014 Document Revised: 08/07/2018 Document Reviewed: 07/14/2017 [employer] Patient Education 2020 [employer] Additional Information VACCINATE! IT SAVES LIVES! Members of the community who have not yet received the COVID-19 vaccine and would like to receive it can visit one of [facility] vaccine clinics. There are many vaccine clinic locations within the [facility]. For locations and available times, please visit https://[email or web address].[place].gov/. It is important to note that some COVID mobile vaccine clinics are held outdoors and may be canceled in rainy or stormy conditions. To learn more about pediatric vaccinations (ages 5-11), we invite you to visit the [employer] webpage. https://www.[employer].org/[email or web address]-[email or web address]-[email or web address] stions.htmlTo learn more about the COVID-19 vaccine, we invite you to visit the CDC website for a list of frequently asked questions.https://www.cdc.gov/coronavirus/2019-ncov/vaccines/faq.html [facility] Patient Portal Access Instructions: Stay connected with your healthcare team and access your personal medical information anytime with the [facility] Patient Portal. Please follow the directions below to create your [facility] account: 1.Access the email account you provided upon registration to the hospital/physician office.2.Look for an invitation email from [facility].3.Open the email and access the invitation link: AcceptInvitation to [facility].4.Fill in the required loera to create your account. To access your account, visit [employer]. Click the blue button labeled Access Patient Portal and then log in with the username and password that you created in the steps above. You will be able to view your test results, lab results, a summary of your visits, upcoming appointments and more. There is also a convenient messaging option where you can send secure messages to your p rovider. In addition, you will have the ability to download any documents or summaries to your computer and/or send the information securely to a physician. Remember that your healthcare information is confidential, so carefully consider who you will allowto register on the [facility] Patient Portal for access to your information. You can also access the [facility] Patient Portal on the [facility] alistair. Simply click on Patient Portal and then log into your account. If you would like to receive a full copy of your medical records, please contact the [facility] Medical Records Department by calling [phone], Friday through Friday between 8 a.m. and 4:30 p.m. HOW TO SAFELY DISPOSE OF PRESCRIPTION MEDICATIONS Please use one of the following methods to safely dispose of your unused medications. 1.Use a drug disposal kit: the drug disposal pouch allows you to safely discard your old and unuseddrugs. Ask your nurse to give you one when you are discharged.2.Visit a local take-back location: Many local pharmacies and police departments have programs that collect old and unwanted prescriptiondrugs. Call your local pharmacy or go to http://[employer]/7L6Sr4j to find one close to you.3.Make use of household items: Use cat litter or old coffee grounds to dispose medications if other options arenot available. Mix your drugs with these household products, seal them in an airtight container andthrow it into the garbage. Call [facility]: [phone] to be sure your drugs can be disposed of in this way. Some medicines may require a different approach.4.Never flush your medications down the toilet. IF YOU HAVE BEEN PRESCRIBED AN OPIOID FOR PAIN If you have been prescribed an opioid (such as hydrocodone, oxycodone or morphine), it is critical to understand the possible side effects and risks of opioid pain medications. Even when taken as directed, opioids can have several side effects including: Tolerance, meaning you might need to take more of a medication for the same pain relief. Nausea, vomiting and/or constipation. Sleepiness, dizziness, dry mouth, confusion, depression or itching. Physical dependence, meaning you have withdrawal symptoms when a medication is stopped, can develop within a few days. KNOW YOUR RESPONSIBILITIES It is important to know exactly how much and how often to take the opioid pain medications you are prescribed. Never take opioids in higher amounts or more often than prescribed. Do not combine opioids with alcohol or other drugs that cause drowsiness, such as benzodiazepines, also known as benzos, including diazepam and alprazolam, muscle relaxants or sleep aids. Never sell or share prescription opioids. This is illegal. Store opioids in a secure place and out of reach of others (including children, family, friends and visitors). The last page of this document has been signed and retained as a CHART COPY. Signatures Patient Education Materials Cardiac Ablation, [employer] Medication Leaflets metoprolol (oral/injection) My discharge plan and instructions have been reviewed and explained to me and I,RUDDY RICH understand my current condition and have read and understand these discharge instructions. I have received a written copy of the plan/instructions. If I have questions, I am aware that I should contact my doctor. 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 He felt his heart racing when in Afib. His HR would go up 140 bpm. He has been on eliquis, lisinopril, metoprolol. Course: The patient underwent successful PVC ablation. He had no PVCs overnight. He felt well and was ready for discharge. Groin sites were stable. Allergies NKA Procedures PVC ablation (LV summit; RCC/LCC commissure) Consults none Imaging Results and Diagnostics none Objective Vitals and Measurements T: 36.7 C (Oral) TMIN: 35.25 C TMAX: 36.8 C (Oral) HR: 58(Monitored) RR: 18 BP: 124/68 SpO2: 96% HT: 182.9 cm WT: 100.2 kg BMI: 29.95 Weight Dosing Weight: 100.2 kg (11/14/23) Dosing Weight: 100.2 kg (11/14/23) General Appearance: Alert and oriented x3, no apparent distress Head: Normocephalic, atraumatic EENT: EOMI, PERRLA, mucous membranes moist Neck: Supple, no thyromegaly. Cardiac: rrr, no mrg. Lungs: Clear to auscultation bilaterally, no wheezing, rales, rhonchi. Abdomen: Nondistended, nontender, bowel sounds present. Musculoskeletal: No gross deformities. Extremities: no significant lower extremity edema, no calf tenderness, pedal pulses are present bilaterally Neurological: No focal deficits Skin: Warm, dry, intact Psychiatric: Mood congruent, cooperative Pending Labs and Studies none Code Status Code Status - Ordered -- 11/14/23 17:56:00 EST, Full Code, Constant Order Admission Date 11/14/23 Discharge Date 11/15/23 Medications Unchanged apixaban (Eliquis 5 mg oral tablet)1 tab(s) by mouth two (2) times a day. Refills: 3. aspirin (aspirin 81 mg oral delayed release tablet)1 tab(s) by mouth every day. atorvastatin (atorvastatin 40 mg oral tablet)1 tab(s) by mouth every day. Refills: 2. losartan (losartan 50 mg oral tablet)1 tab(s) by mouth once a day. Refills: 3. metoprolol (metoprolol succinate 25 mg oral TABLET extended release)0.5 tab(s) by mouth once a day.Do not crush or chew (controlled release). Refills: 1. Follow Up Follow Up with FREDA SINGH MD When 02/16/2024 10:15 AM EDT Where: [address] [facility] [place] [address]- [phone] Follow Up with DALIA HORVATH MD When 11/24/2023 12:45 PM EDT Why: KEEP THIS PREVIOUSLY SCHEDULED APPOINTMENT. Where: [address] [facility] [place] [address]- [phone] Follow Up Labs/Studies Discharge Labs No Follow-up Labs Discharge Studies No Follow-up Studies Discharge Diet resume prior Discharge Activity no heavy lifting x 3 days (nothing > 25 lbs) Condition on Discharge stable Readmission Risk/Palliative Score No qualifying data available. Discharge Disposition home Information Provided To patient Digitally Signed by FREDA SINGH MD on 11/15/2023 07:41 AM [id number] NoteSINUS RHYTHM NORMAL ECG Electronic Signature: SHORTY LUCIANO MD 11/15/2023 18:37:26[facility] 03-08-2024 Anesthesiology Consult note Patient: RUDDY RICH Age: 68 years Sex: Male : 1955 Associated Diagnoses: None Author: SREEDHAR MARQUEZ MD Postoperative Information Post Operative Info: Post op day: Post Anesthesia Care Unit. 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 Assessment Postanesthesia assessment Vitals: Vital signs from flowsheet : Vital Signs 11/14/2023 12:25 EST Heart Rate Monitored 59 bpm LOW Respiratory Rate 14 br/min Systolic Blood Pressure Non-Invasive 123 mmHg Diastolic Blood Pressure Non-Invasive 51 mmHg LOW 11/14/2023 12:10 EST Heart Rate Monitored 58 bpm LOW Respiratory Rate 12 br/min LOW Systolic Blood Pressure Non-Invasive 126 mmHg Diastolic Blood Pressure Non-Invasive 59 mmHg LOW 11/14/2023 11:55 EST Heart Rate Monitored 59 bpm LOW Respiratory Rate 13 br/min LOW Systolic Blood Pressure Non-Invasive 135 mmHg Diastolic Blood Pressure Non-Invasive 63 mmHg 11/14/2023 11:40 EST Heart Rate Monitored 63 bpm Respiratory Rate 14 br/min Systolic Blood Pressure Non-Invasive 124 mmHg Diastolic Blood Pressure Non-Invasive 60 mmHg 11/14/2023 11:35 EST Heart Rate Monitored 59 bpm LOW Respiratory Rate 13 br/min LOW Systolic Blood Pressure Non-Invasive 137 mmHg Diastolic Blood Pressure Non-Invasive 85 mmHg 11/14/2023 11:30 EST Heart Rate Monitored 59 bpm LOW Respiratory Rate 14 br/min Systolic Blood Pressure Non-Invasive 144 mmHg HI Diastolic Blood Pressure Non-Invasive 70 mmHg 11/14/2023 11:25 EST Heart Rate Monitored 61 bpm Respiratory Rate 21 br/min HI Systolic Blood Pressure Non-Invasive 129 mmHg Diastolic Blood Pressure Non-Invasive 66 mmHg 11/14/2023 11:20 EST Heart Rate Monitored 60 bpm Respiratory Rate 13 br/min LOW Systolic Blood Pressure Non-Invasive 130 mmHg Diastolic Blood Pressure Non-Invasive 68 mmHg 11/14/2023 11:15 EST Heart Rate Monitored 60 bpm Respiratory Rate 12 br/min LOW Systolic Blood Pressure Non-Invasive 150 mmHg HI Diastolic Blood Pressure Non-Invasive 70 mmHg 11/14/2023 11:10 EST Heart Rate Monitored 58 bpm LOW Respiratory Rate 15 br/min Systolic Blood Pressure Non-Invasive 126 mmHg Diastolic Blood Pressure Non-Invasive 76 mmHg 11/14/2023 11:05 EST Temperature Temporal Artery 35.8 DegC Heart Rate Monitored 63 bpm Respiratory Rate 16 br/min Systolic Blood Pressure Non-Invasive 153 mmHg HI Diastolic Blood Pressure Non-Invasive 64 mmHg 11/14/2023 10:52 EST Systolic Blood Pressure Non-Invasive 141 mmHg mmHg Diastolic Blood Pressure Non-Invasive 76 mmHg mmHg 11/14/2023 10:50 EST Heart Rate Monitored 62 bpm bpm Respiratory Rate - Anes 4 br/min br/min 11/14/2023 10:49 EST Systolic Blood Pressure Non-Invasive 133 mmHg mmHg Diastolic Blood Pressure Non-Invasive 79 mmHg mmHg 11/14/2023 10:46 EST Systolic Blood Pressure Non-Invasive 144 mmHg mmHg Diastolic Blood Pressure Non-Invasive 83 mmHg mmHg 11/14/2023 10:45 EST Heart Rate Monitored 64 bpm bpm Respiratory Rate - Anes 9 br/min br/min 11/14/2023 10:43 EST Systolic Blood Pressure Non-Invasive 144 mmHg mmHg Diastolic Blood Pressure Non-Invasive 75 mmHg mmHg 11/14/2023 10:40 EST Temperature (Route Not Specified) 36.1 DegC DegC Heart Rate Monitored 65 bpm bpm Respiratory Rate - Anes 12 br/min br/min Systolic Blood Pressure Non-Invasive 142 mmHg mmHg Diastolic Blood Pressure Non-Invasive 76 mmHg mmHg 11/14/2023 10:37 EST Systolic Blood Pressure Non-Invasive 143 mmHg mmHg Diastolic Blood Pressure Non-Invasive 77 mmHg mmHg 11/14/2023 10:35 EST Temperature (Route Not Specified) 36.08 DegC DegC Heart Rate Monitored 83 bpm bpm Respiratory Rate - Anes 8 br/min br/min 11/14/2023 10:30 EST Temperature (Route Not Specified) 36.07 DegC DegC Heart Rate Monitored 95 bpm bpm Respiratory Rate - Anes 14 br/min br/min 11/14/2023 10:25 EST Temperature (Route Not Specified) 36.09 DegC DegC Heart Rate Monitored 107 bpm bpm Respiratory Rate - Anes 11 br/min br/min 11/14/2023 10:20 EST Temperature (Route Not Specified) 36.11 DegC DegC Heart Rate Monitored 77 bpm bpm Respiratory Rate - Anes 11 br/min br/min 11/14/2023 10:15 EST Temperature (Route Not Specified) 36.11 DegC DegC Heart Rate Monitored 62 bpm bpm Respiratory Rate - Anes 11 br/min br/min 11/14/2023 10:10 EST Temperature (Route Not Specified) 36.11 DegC DegC Heart Rate Monitored 62 bpm bpm Respiratory Rate - Anes 8 br/min br/min 11/14/2023 10:05 EST Temperature (Route Not Specified) 36.11 DegC DegC Heart Rate Monitored 60 bpm bpm Respiratory Rate - Anes 13 br/min br/min 11/14/2023 10:00 EST Temperature (Route Not Specified) 36.12 DegC DegC Heart Rate Monitored 73 bpm bpm Respiratory Rate - Anes 14 br/min br/min 11/14/2023 9:55 EST Temperature (Route Not Specified) 36.13 DegC DegC Heart Rate Monitored 66 bpm bpm Respiratory Rate - Anes 17 br/min br/min 11/14/2023 9:50 EST Temperature (Route Not Specified) 36.14 DegC DegC Heart Rate Monitored 64 bpm bpm Respiratory Rate - Anes 13 br/min br/min 11/14/2023 9:45 EST Temperature (Route Not Specified) 36.15 DegC DegC Heart Rate Monitored 65 bpm bpm Respiratory Rate - Anes 15 br/min br/min 11/14/2023 9:40 EST Temperature (Route Not Specified) 36.16 DegC DegC Heart Rate Monitored 94 bpm bpm Respiratory Rate - Anes 4 br/min br/min 11/14/2023 9:35 EST Temperature (Route Not Specified) 36.19 DegC DegC Heart Rate Monitored 94 bpm bpm Respiratory Rate - Anes 6 br/min br/min 11/14/2023 9:30 EST Temperature (Route Not Specified) 36.21 DegC DegC Heart Rate Monitored 62 bpm bpm Respiratory Rate - Anes 14 br/min br/min 11/14/2023 9:25 EST Temperature (Route Not Specified) 36.23 DegC DegC Heart Rate Monitored 94 bpm bpm Respiratory Rate - Anes 15 br/min br/min 11/14/2023 9:20 EST Temperature (Route Not Specified) 36.25 DegC DegC Heart Rate Monitored 60 bpm bpm Respiratory Rate - Anes 14 br/min br/min 11/14/2023 9:15 EST Temperature (Route Not Specified) 36.27 DegC DegC Heart Rate Monitored 90 bpm bpm Respiratory Rate - Anes 15 br/min br/min 11/14/2023 9:10 EST Temperature (Route Not Specified) 36.28 DegC DegC Heart Rate Monitored 60 bpm bpm Respiratory Rate - Anes 0 br/min br/min 11/14/2023 9:05 EST Temperature (Route Not Specified) 36.29 DegC DegC Heart Rate Monitored 85 bpm bpm Respiratory Rate - Anes 14 br/min br/min 11/14/2023 9:00 EST Temperature (Route Not Specified) 36.29 DegC DegC Heart Rate Monitored 63 bpm bpm Respiratory Rate - Anes 16 br/min br/min 11/14/2023 8:55 EST Temperature (Route Not Specified) 36.27 DegC DegC Heart Rate Monitored 65 bpm bpm Respiratory Rate - Anes 26 br/min br/min 11/14/2023 8:50 EST Temperature (Route Not Specified) 36.28 DegC DegC Heart Rate Monitored 77 bpm bpm Respiratory Rate - Anes 17 br/min br/min 11/14/2023 8:49 EST Systolic Blood Pressure Non-Invasive 133 mmHg mmHg Diastolic Blood Pressure Non-Invasive 59 mmHg mmHg 11/14/2023 8:45 EST Temperature (Route Not Specified) 36.29 DegC DegC Heart Rate Monitored 72 bpm bpm Respiratory Rate - Anes 14 br/min br/min 11/14/2023 8:40 EST Temperature (Route Not Specified) 36.29 DegC DegC Heart Rate Monitored 77 bpm bpm Respiratory Rate - Anes 12 br/min br/min 11/14/2023 8:35 EST Temperature (Route Not Specified) 36.27 DegC DegC Heart Rate Monitored 74 bpm bpm Respiratory Rate - Anes 14 br/min br/min 11/14/2023 8:30 EST Temperature (Route Not Specified) 36.24 DegC DegC Heart Rate Monitored 78 bpm bpm Respiratory Rate - Anes 7 br/min br/min 11/14/2023 8:25 EST Temperature (Route Not Specified) 36.21 DegC DegC Heart Rate Monitored 77 bpm bpm Respiratory Rate - Anes 12 br/min br/min 11/14/2023 8:20 EST Temperature (Route Not Specified) 36.17 DegC DegC Heart Rate Monitored 76 bpm bpm Respiratory Rate - Anes 17 br/min br/min 11/14/2023 8:18 EST Systolic Blood Pressure Non-Invasive 131 mmHg mmHg Diastolic Blood Pressure Non-Invasive 69 mmHg mmHg 11/14/2023 8:15 EST Temperature (Route Not Specified) 36.14 DegC DegC Heart Rate Monitored 66 bpm bpm Respiratory Rate - Anes 15 br/min br/min Systolic Blood Pressure Non-Invasive 154 mmHg mmHg Diastolic Blood Pressure Non-Invasive 53 mmHg mmHg 11/14/2023 8:12 EST Systolic Blood Pressure Non-Invasive 133 mmHg mmHg Diastolic Blood Pressure Non-Invasive 67 mmHg mmHg 11/14/2023 8:10 EST Temperature (Route Not Specified) 36.08 DegC DegC Heart Rate Monitored 80 bpm bpm Respiratory Rate - Anes 16 br/min br/min 11/14/2023 8:09 EST Systolic Blood Pressure Non-Invasive 146 mmHg mmHg Diastolic Blood Pressure Non-Invasive 75 mmHg mmHg 11/14/2023 8:06 EST Systolic Blood Pressure Non-Invasive 143 mmHg mmHg Diastolic Blood Pressure Non-Invasive 75 mmHg mmHg 11/14/2023 8:05 EST Temperature (Route Not Specified) 36.04 DegC DegC Heart Rate Monitored 75 bpm bpm Respiratory Rate - Anes 12 br/min br/min 11/14/2023 8:03 EST Systolic Blood Pressure Non-Invasive 152 mmHg mmHg Diastolic Blood Pressure Non-Invasive 69 mmHg mmHg 11/14/2023 8:00 EST Temperature (Route Not Specified) 35.99 DegC DegC Heart Rate Monitored 70 bpm bpm Respiratory Rate - Anes 13 br/min br/min Systolic Blood Pressure Non-Invasive 147 mmHg mmHg Diastolic Blood Pressure Non-Invasive 65 mmHg mmHg 11/14/2023 7:57 EST Systolic Blood Pressure Non-Invasive 139 mmHg mmHg Diastolic Blood Pressure Non-Invasive 70 mmHg mmHg 11/14/2023 7:55 EST Temperature (Route Not Specified) 35.94 DegC DegC Heart Rate Monitored 79 bpm bpm Respiratory Rate - Anes 16 br/min br/min 11/14/2023 7:54 EST Systolic Blood Pressure Non-Invasive 142 mmHg mmHg Diastolic Blood Pressure Non-Invasive 67 mmHg mmHg 11/14/2023 7:51 EST Systolic Blood Pressure Non-Invasive 150 mmHg mmHg Diastolic Blood Pressure Non-Invasive 68 mmHg mmHg 11/14/2023 7:50 EST Temperature (Route Not Specified) 35.84 DegC DegC Heart Rate Monitored 69 bpm bpm Respiratory Rate - Anes 15 br/min br/min 11/14/2023 7:48 EST Systolic Blood Pressure Non-Invasive 144 mmHg mmHg Diastolic Blood Pressure Non-Invasive 73 mmHg mmHg 11/14/2023 7:45 EST Temperature (Route Not Specified) 35.25 DegC DegC Heart Rate Monitored 73 bpm bpm Respiratory Rate - Anes 12 br/min br/min (Modified) Systolic Blood Pressure Non-Invasive 147 mmHg mmHg Diastolic Blood Pressure Non-Invasive 83 mmHg mmHg 11/14/2023 7:40 EST Respiratory Rate - Anes 12 br/min br/min (Modified) 11/14/2023 5:56 EST Temperature Oral 36.6 DegC Peripheral Pulse Rate 55 bpm LOW Respiratory Rate 16 br/min Systolic Blood Pressure Non-Invasive 146 mmHg HI Diastolic Blood Pressure Non-Invasive 82 mmHg , Oxygen Therapy : Oxygen Therapy & Oxygenation Information 11/14/2023 12:25 EST Oxygen Therapy Room air Oxygen Saturation 96 % 11/14/2023 12:10 EST Oxygen Therapy Room air Oxygen Saturation 96 % 11/14/2023 11:55 EST Oxygen Therapy Room air Oxygen Saturation 96 % 11/14/2023 11:40 EST Oxygen Therapy Room air Oxygen Saturation 96 % 11/14/2023 11:35 EST Oxygen Therapy Room air Oxygen Saturation 96 % 11/14/2023 11:30 EST Oxygen Therapy Room air Oxygen Saturation 95 % 11/14/2023 11:25 EST Oxygen Therapy Room air Oxygen Saturation 96 % 11/14/2023 11:20 EST Oxygen Therapy Room air Oxygen Saturation 95 % 11/14/2023 11:15 EST Oxygen Therapy Room air Oxygen Saturation 95 % 11/14/2023 11:10 EST Oxygen Therapy Room air Oxygen Saturation 95 % 11/14/2023 11:05 EST Oxygen Therapy Room air Oxygen Saturation 96 % 11/14/2023 10:50 EST Oxygen Saturation 97 % % 11/14/2023 10:45 EST Oxygen Saturation 100 % % 11/14/2023 10:40 EST Oxygen Saturation 100 % % 11/14/2023 10:35 EST Oxygen Saturation 100 % % 11/14/2023 10:30 EST Oxygen Saturation 99 % % 11/14/2023 10:25 EST Oxygen Saturation 98 % % 11/14/2023 10:20 EST Oxygen Saturation 99 % % 11/14/2023 10:15 EST Oxygen Saturation 100 % % 11/14/2023 10:10 EST Oxygen Saturation 99 % % 11/14/2023 10:05 EST Oxygen Saturation 99 % % 11/14/2023 10:00 EST Oxygen Saturation 99 % % 11/14/2023 9:55 EST Oxygen Saturation 99 % % 11/14/2023 9:50 EST Oxygen Saturation 99 % % 11/14/2023 9:45 EST Oxygen Saturation 99 % % 11/14/2023 9:40 EST Oxygen Saturation 99 % % 11/14/2023 9:35 EST Oxygen Saturation 98 % % 11/14/2023 9:30 EST Oxygen Saturation 99 % % 11/14/2023 9:25 EST Oxygen Saturation 99 % % 11/14/2023 9:20 EST Oxygen Saturation 99 % % 11/14/2023 9:15 EST Oxygen Saturation 99 % % 11/14/2023 9:10 EST Oxygen Saturation 98 % % 11/14/2023 9:05 EST Oxygen Saturation 99 % % 11/14/2023 9:00 EST Oxygen Saturation 100 % % 11/14/2023 8:55 EST Oxygen Saturation 99 % % 11/14/2023 8:50 EST Oxygen Saturation 100 % % 11/14/2023 8:45 EST Oxygen Saturation 100 % % 11/14/2023 8:40 EST Oxygen Saturation 100 % % 11/14/2023 8:35 EST Oxygen Saturation 100 % % 11/14/2023 8:30 EST Oxygen Saturation 100 % % 11/14/2023 8:25 EST Oxygen Saturation 98 % % 11/14/2023 8:20 EST Oxygen Saturation 100 % % 11/14/2023 8:15 EST Oxygen Saturation 100 % % 11/14/2023 8:10 EST Oxygen Saturation 100 % % 11/14/2023 8:05 EST Oxygen Saturation 100 % % 11/14/2023 8:00 EST Oxygen Saturation 100 % % 11/14/2023 7:55 EST Oxygen Saturation 100 % % 11/14/2023 7:50 EST Oxygen Saturation 100 % % 11/14/2023 7:45 EST Oxygen Saturation 98 % % 11/14/2023 5:56 EST Oxygen Therapy Room air Oxygen Saturation 96 % . Mental status: at preoperative baseline. Respiratory function: respirations are non-labored, Stable. Respiratory support: none. CV function: Stable. Cardiovascular support: none. Pain: Satisfactory. Nausea status: Satisfactory. Postoperative hydration status: within normal limits. Notes: Patient is sufficiently recovered from anesthesia to participate in the evaluation. No follow-up care needed. No complications post-anesthesia.. Digitally Signed by SREEDHAR MARQUEZ MD on 11/14/2023 12:56 PM [id number] Note* Exam Date Time Procedure Performing Provider Status 11/14/23 7:35 AM Ablation RF-Ensite - CV Au (Verified) [facility] 03-08-2024 Anesthesiology Consult note Patient: RUDDY RICH Age: 68 years Sex: Male : 1955 Associated Diagnoses: None Author: SREEDHAR MARQUEZ MD Preoperative Information Greater than 8 hours Anesthesia history Patient's history: negative. Family's history: negative. Review of Systems Ear/Nose/Mouth/Throat: See Problem List. Respiratory: See Problem List. Cardiovascular: See Problem List. Gastrointestinal: See Problem List. Genitourinary: See Problem List. Endocrine: See Problem List. Musculoskeletal: See Problem List. Integumentary: See Problem List. Neurologic: See Problem List. See problem list and procedure results for specifics. Health Status Allergies: Allergic Reactions (Selected) NKA, Allergies (1) ActiveReaction NKANone Documented Current medications: (Selected) Inpatient Medications Ordered lidocaine 1% preservative-free injectable solution: 2.5 mg, 0.25 mL, Intradermal, prep pharm Prescriptions Prescribed Eliquis 5 mg oral tablet: 5 mg, 1 tab(s), Oral, BID, 180 tab(s), 3 Refill(s) atorvastatin 40 mg oral tablet: 40 mg, 1 tab(s), Oral, Daily, 100 tab(s), 2 Refill(s) losartan 50 mg oral tablet: 1 tab(s), Oral, qDay, 90 tab(s), 3 Refill(s) metoprolol succinate 25 mg oral TABLET extended release: 12.5 mg, 0.5 tab(s), Oral, qDay, Do not crush or chew (controlled release), 45 tab(s), 1 Refill(s) Documented Medications Documented aspirin 81 mg oral delayed release tablet: 81 mg, 1 tab(s), Oral, Daily, 0 Refill(s), Medications (1) Active Scheduled: (1) lidocaine 1% (MPF) 2 mL vial pf 2.5 mg 0.25 mL, Intradermal, prep pharm Continuous: (0) PRN: (0) Problem list: Medical Atrial fibrillation / SNOMED CT 30266305 / Confirmed Bradycardia / SNOMED CT 21371091 / Confirmed Hypertension / SNOMED CT 9111241241 / Confirmed PVCs (premature ventricular contractions) / SNOMED CT 3919492841 / Confirmed RADHA on CPAP / SNOMED CT 324952710 / Confirmed Palpitation / SNOMED CT 897796431 / Confirmed Canceled: Cardiomyopathy / SNOMED CT 978315032 Canceled: Sinus bradycardia / SNOMED CT 76102151, Active Problems (6) Atrial fibrillation Bradycardia Hypertension RADHA on CPAP Palpitation PVCs (premature ventricular contractions) Histories Past Medical History: No active or resolved past medical history items have been selected or recorded. Family History: Hypertension Mother Heart disease Mother Stroke Father Diabetes Father Grandparent Procedure history: Cardiac catheterization ([id number]) on 09/04/2023 at 68 Years. Comments: 10/03/2023 14:12 Scarlett Del Cid LPN Procedures performed: Left heart catheterization. Right coronary angiography. Left coronary angiography. Left ventriculography. SUMMARY: Left ventricle: Systolic function is reduced. The estimated ejection fraction is 45-50%. IMPRESSIONS: The study demonstrates mild coronary artery disease. Echocardiogram ([id number]) on 03/14/2022 at 66 Years. Comments: 04/23/2022 9:50 Steve Smith LPN EF 55-60% 05/10/2021 10:23 Mara William RN CONCLUSION: 1. Left ventricle is normal in size and thickness. Calculated ejection fraction is 50%. There are no regional wall motion abnormality seen. Global longitudinal strain is borderline low at-16.7% 2. There are no significant valvular dysfunction seen. 3. Right ventricle is normal in size and systolic function 4. Estimated right ventricular systolic pressure is 26 mm Hg. 5. Compared to the prior CELE done in 11/2019, ejection fraction has improved. Right ventricular function has improved Catheter ablation for cardiac arrhythmia ([id number]) on 04/13/2020 at 64 Years. Comments: 05/10/2021 10:22 Mara William RN IMPRESSION: - Successful radiofrequency pulmonary vein Isolation - Normal HPS conduction Primary open reduction of fracture of neck of femur and open fixation using Deyerle multiple hip pinning ([id number]). Dissection tonsillectomy ([id number]). Thumb ([id number]). 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 (Check all that apply) Identifies as male . Physical Examination Vital Signs 11/14/2023 5:56 EST Temperature Oral 36.6 DegC Peripheral Pulse Rate 55 bpm LOW Respiratory Rate 16 br/min Systolic Blood Pressure Non-Invasive 146 mmHg HI Diastolic Blood Pressure Non-Invasive 82 mmHg Vital Signs(last 24 hrs) Last Charted Temp Oral36.6 DegC (NOV 13 05:56) SBPH 146mmHg (NOV 13 05:56) DBP82 mmHg (NOV 13 05:56) BMI29.95 (NOV 13 06:01) General: Alert and oriented. Airway: Normal temporomandibular joint mobility, Normal mouth, Normal throat, Normal neck range of motion, Trachea midline. Mallampati classification: II (soft palate, fauces, uvula visible). Head: Normocephalic. Dentition Evaluation: Intact, Own teeth, Denies loose/chipped teeth. Neck: Supple. Respiratory: Lungs are clear to auscultation, Respirations are non-labored. Cardiovascular: Normal rate, No murmur. Heart Sounds: Normal. Neurologic: Alert, Oriented. Review / Management Results review: Labs (Last four charted values) WBC 6.5(NOV 13) Hgb 14.2(NOV 13) Hct 41.3(NOV 13) Plt 180(NOV 13) . Assessment and Plan [place] [employer] Anesthesiologists (ASA) physical status classification: Class III. Anesthetic Preoperative Plan Premedication: intravenous. Anesthetic technique: General. Induction: intravenously. Maintenance airway: Oral endotracheal tube. Special techniques: Warming device. Special Monitoring: Arterial line. Postoperative pain management: Per surgeon. Risks discussed: nausea, vomiting, headache, sore throat, dental injury, hypotension, allergic reaction, serious complications, Heart Problems, Lung Problems, Stroke, Intraoperative Recall, . Informed consent: signed by patient. Notes: After completion of focused history and physical examination, anesthetic options with their inherent risks and benefits were discussed. Common minor and rare but serious or potentially life-threatening complications were included in this discussion(Specific items discussed: nausea, sore throat, dysphagia, heart problems, lung problems, strokes, heart attacks, intraoperative recall and ). All of the patient's questions were answered. The patient verbalizes understanding of the agreed upon anesthetic plan and agrees to proceed.. Beta Chela: Beta Chela Taken Within 24 Hrs. Digitally Signed by SREEDHAR MARQUEZ MD on 11/14/2023 06:50 AM [facility] [id number] NoteSINUS RHYTHM MULTIPLE VENTRICULAR PREMATURE COMPLEXES Electronic Signature: SHORTY LUCIANO MD 11/15/2023 18:37:00[facility] 03-[facility] History and physical note Date of Service November 11, 2023 Primary EP: Dr. Singh Chief Complaint PVCs --> Presenting for ablation (11/14/23) History of Present Illness Per [facility]'s OV note dated 10/06/23: 68 yr old with hx of persistent atrial fibrillation (eliquis), s/p DCC x 1 (lasted 2 days), s/p AF ablation (RF PVI) on 04/13/20, cardiomyopathy (EF 37%-> 50%), sinus bradycardia, RADHA on CPAP, initially referred by Dr Horvath. He felt his heart racing when in Afib. His HR would go up 140 bpm. He has been on eliquis, lisinopril, metoprolol. Follow up visit on on 10/06/23 ([facility]) Having PVCs. Symptomatic, feeling off. Metoprolol not suppressing. Patient denies rapid heart beat sensation. No dizziness. No syncope. Dyspnea on exertion (minimal).No orthopnea, PND, rest/exertional chest pain. No LE edema or increased abdominal girth. LHC (10/06/23): mild non-obstructive CAD. Holter (pre ablation) - 100% AFib. Stress test - 11/2019 - No inducible ischemia. EF 27%. Echo - EF 37% Echocardiogram (05/24/2020) -LVEF 50% -No significant valvular abnormalities. Review of Systems Per [facility]'s OV note dated 10/06/23: Constitutional Symptoms: Denies weight loss/gain, fever/chills, or sweats Integumentary: Denies color changes, rash, sores, or lumps Eyes: Denies vision changes, blurriness, or pain ENT: Denies epistaxis, sore throat, or dysphagia Cardiovascular: See HPI Respiratory: Denies cough, sputum, or hemoptysis Musculoskeletal: Denies new pain, weakness, or swelling Gastrointestinal: Denies nausea, vomiting, GERD, diarrhea, constipation, abdominal pain, or hematemesis Neurological: Denies seizures, coordination issues, or paralysis Genitourinary: Denies dysuria, hematuria, burning, or renal stones Hematologic/Lymphatic: Denies bleeding disorders, night sweats, or tenderness of lymph nodes Psychiatric: Denies recent anxiety or depressive episodes. Physical Exam Vitals and Measurements No qualifying data available. Per [facility]'s OV note dated 10/06/23: General Appearance: Alert and oriented x3, no apparent distress Head: Normocephalic, atraumatic EENT: EOMI, PERRLA, mucous membranes moist Neck: Supple, no thyromegaly. Cardiac: rrr, no mrg. Lungs: Clear to auscultation bilaterally, no wheezing, rales, rhonchi. Abdomen: Nondistended, nontender, bowel sounds present. Musculoskeletal: No gross deformities. Extremities: no significant lower extremity edema, no calf tenderness, pedal pulses are present bilaterally Neurological: No focal deficits Skin: Warm, dry, intact Psychiatric: Mood congruent, cooperative Lab Results No 36 Hour Lab Data Assessment/Plan Per [facility]'s OV note dated 10/06/23: 1. PVCs (premature ventricular contractions) Symptomatic, with reduced EF 45%. Thus, treatment is recommended. We discussed mexiletine versus A-fib ablation. I do not think will tolerate other antiarrhythmics due to the resting bradycardia. We discussed the risk/benefits of all approaches. He would like to proceed with ablation. -PVC ablation. Hold Eliquis 2-3 days. Hold metoprolol 5 days. -f/u 3 mo after ablation ---- Plan: - Proceed with RF-Ensite ablation for PVCs - Follow up 3 months post-procedure Problem List/Past Medical History Ongoing Atrial fibrillation Bradycardia Hypertension RADHA on CPAP Palpitation PVCs (premature ventricular contractions) Historical No qualifying data Procedure/Surgical History Cardiac catheterization: 09/04/23 Echocardiogram: 03/14/22 Catheter ablation for cardiac arrhythmia: 04/13/20 Primary open reduction of fracture of neck of femur and open fixation using Deyerle multiple hip pinning Dissection tonsillectomy Medications Home Medications (5) Active aspirin 81 mg oral delayed release tablet 81 mg = 1 tab(s), Oral, Daily atorvastatin 40 mg oral tablet 40 mg = 1 tab(s), Oral, Daily Eliquis 5 mg oral tablet 5 mg = 1 tab(s), Oral, BID losartan 50 mg oral tablet 1 tab(s), Oral, qDay metoprolol succinate 25 mg oral TABLET extended release 12.5 mg = 0.5 tab(s), Oral, qDay Allergies NKA Social History Alcohol Type: Beer. Frequency: 1-2 times per week., 08/20/2023 Employment/School Status: Employed., 05/10/2021 Home/Environment Marital Status: ., 05/10/2021 Nutrition/Health Caffeine intake amount: 2 cups coffee., 02/01/2021 Sexual Self described orientation: Straight or heterosexual. Gender Identity: Identifies as male., 09/04/2023 Substance Abuse Use: Never., 10/18/2019 Tobacco Nicotine Use: Former smoker, quit more than 30 days ago., 10/18/2019 Family History Diabetes: Father and Grandparent. Heart disease: Mother. Hypertension: Mother. Stroke: Father. Immunizations No qualifying data available. Code Status No qualifying data available. Digitally Signed by DEVAN SMITH on 11/11/2023 03:58 PM [facility] [id number] Evaluation + Plan noteExtracted from: Title:History and Physical Author:DEVAN SMITH Date:11/11/23 Per [facility] OV note dated 10/06: 1. PVCs (premature ventricular contractions) Symptomatic, with reduced EF 45%. Thus, treatment is recommended. We discussed mexiletine versus A-fib ablation. I do not think will tolerate other antiarrhythmics due to the resting bradycardia. We discussed the risk/benefits of all approaches. He would like to proceed with ablation. -PVC ablation. Hold Eliquis 2-3 days. Hold metoprolol 5 days. - f/u 3 mo after ablation ---- Plan: - Proceed with RF-Ensite ablation for PVCs - Follow up 3 months post-procedure Future Appointments Appointment Date:11/24/2023 12:45:00 PM Scheduled Provider: Location:[facility] Appointment Type:CV OV Appointment Date:02/16/2024 10:15:00 AM Scheduled Provider: Location:[facility] Appointment Type:CV OV Future Scheduled Tests Laboratory* Thyroid Stimulating Hormone 02/28/23 * A1C Hemoglobin 02/28/23 * Complete Blood Count 02/28/23 * Lipid Profile 02/28/23 * Complete Metabolic Panel 02/28/23 Radiology* NM Myocardial Spect Rest/Stress 08/20/23 [facility] 12-28-2023 Hospital Discharge instructions Patient Education 09/04/2023 14:07:24 3- Heart Cath/PCI radial (06/2018) (CUSTOM) HEART CATHETERIZATION/PCI (radial) Discharge Instructions DIET Drink plenty of fluids for the next 48 hours to help your kidneys flush the heart cath dye out of your system ACTIVITY For the next 48 hours: Do not deep bend the wrist Do not lift, push, or pull anything over 5 pounds for 7 days. Do not use the hand/arm to support your weight when rising from a chair or bed Do not drive For the next 7 days: Do not submerse your procedure site in water Do not swim, wash dishes, or take tub baths You may write, eat, type, and shower WOUND CARE Keep dressing on for 24 hours, wash, dry, and place Band-Aid. (1PM) Keep a Band-Aid on your procedure site for the next 3-4 days Change the Band-Aid daily or if it gets wet/soiled AFTER YOU GO HOME, CALL YOUR DOCTOR FOR: Any increase in bruising or tenderness from the procedure site Any redness, pus, or other signs of infection at the site A temperature above 100.5 Severe pain at the site DIAL 911 AND RETURN TO THE HOSPITAL FOR: Any bleeding from the procedure site. The site may be bruised or tender, but it should not be bleeding at any time. If your site begins to bleed, hold firm pressure on it and dial 911 to return to the hospital Any increase in swelling at the procedure site. An increase in swelling could mean the area is bleeding under the skin. Hold firm pressure to the site and dial 911 to return to the hospital Document Released: 08/25/2006 Document Revised: 08/11/2013 Document Reviewed: 08/26/2014 ExitCare Patient Information 2015 [employer]. This information is not intended to replace advicegiven to you by your health care provider. Make sure you discuss any questions you have with your health care provider. 09/04/2023 13:06:06 Moderate Conscious Sedation, Adult, Care After Moderate Conscious Sedation, Adult, Care After These instructions provide you with information about caring for yourself after your procedure. Your health care provider may also give you more specific instructions. Your treatment has been plannedaccording to current medical practices, but problems sometimes occur. Call your health care provider if you have any problems or questions after your procedure. What can I expect after the procedure? After your procedure, it is common: To feel sleepy for several hours. To feel clumsy and have poor balance for several hours. To have poor judgment for several hours. To vomit if you eat too soon. Follow these instructions at home: For at least 24 hours after the procedure: Do not: ?Participate in activities where you could fall or become injured. ?Drive. ?Use heavy machinery. ?Drink alcohol. ?Take sleeping pills or medicines that cause drowsiness. ?Make important decisions or sign legal documents. ?Take care of children on your own. Rest. Eating and drinking Follow the diet recommended by your health care provider. If you vomit: ?Drink water, juice, or soup when you can drink without vomiting. ?Make sure you have little or no nausea before eating solid foods. General instructions Have a responsible adult stay with you until you are awake and alert. Take fiki-xop-avngouz and prescription medicines only as told by your health care provider. If you smoke, do not smoke without supervision. Keep all follow-up visits as told by your health care provider. This is important. Contact a health care provider if: You keep feeling nauseous or you keep vomiting. You feel light-headed. You develop a rash. You have a fever. Get help right away if: You have trouble breathing. This information is not intended to replace advice given to you by your health care provider. Make sure you discuss any questions you have with your health care provider. Document Released: 06/15/2014 Document Revised: 08/07/2018 Document Reviewed: 12/14/2016 [employer] Patient Education 2020 [employer]. Follow Up Care 08/28/2023 09:31:11 With:[facility] will contact you for an appointment in .If you have any questions please call:[phone]. Address: When: Unknown With:DALIA HORVATH MD [address] [address] [facility] [place] [address]- [phone] When:10/09/2023 13:30:00 [facility] 12-28-2023 Note Discharge Instructions Thank you for allowing [facility] to assist you with your healthcare needs. The following is importantdischarge information regarding your hospital visit. Your Care Team JUSTICE CARDENAS MD What to do next Scheduled [facility] Appointments [facility] 01:30 PM EST [facility] CV OV 11/24/2023 12:45 PM EDT [facility] Follow Up Appointments Follow Up with DALIA HORVATH MD When 10/09/2023 01:30 PM EST Where: [address] [place] [address]- [phone] The Following Activity and Diet Have Been Ordered for You Discharge Activity - Ordered -- NO activity restrictions, 09/04/23 12:29:00 EST Discharge Diet - Ordered -- No changes were made to your diet during your hospital stay. Please resume your pre hospitalization diet on discharge., 09/04/23 12:29:00 EST Allergies NKA Medications Please ask your primary doctor or pharmacist before taking any other medication not listed, including over the counter drugs, herbal medications, vitamins and or supplements as they may interact withyour home medications. What How Much When Instructions Last Dose Unchanged apixaban (Eliquis 5 mg oral tablet) 1 tab(s) by mouth Two (2) times a day Unchanged atorvastatin (atorvastatin 40 mg oral tablet) 1 tab(s) by mouth Every day Unchanged losartan (losartan 50 mg oral tablet) 1 tab(s) by mouth Once a day Unchanged metoprolol (metoprolol succinate 25 mg oral TABLET extended release) 0.5 tab(s) by mouth Once a day Do not crush or chew (controlled release) What How Much When Comments Stop Taking aspirin (aspirin 81 mg oral delayed release tablet) 1 tab(s) by mouth Once a day Please take this list to your next doctor s visit. Bring all medications you take, including over the counter medications, herbals and other supplements with you to your doctor s visit. Patients and families are reminded to discard old lists and to update any records with all medication providers or retail pharmacies. Education Materials HEART CATHETERIZATION/PCI (radial) Discharge Instructions DIET Drink plenty of fluids for the next 48 hours to help your kidneys flush the heart cath dye out of your system ACTIVITY For the next 48 hours: Do not deep bend the wrist Do not lift, push, or pull anything over 5 pounds for 7 days. Do not use the hand/arm to support your weight when rising from a chair or bed Do not drive For the next 7 days: Do not submerse your procedure site in water Do not swim, wash dishes, or take tub baths You may write, eat, type, and shower WOUND CARE Keep dressing on for 24 hours, wash, dry, and place Band-Aid. (1PM) Keep a Band-Aid on your procedure site for the next 3-4 days Change the Band-Aid daily or if it gets wet/soiled AFTER YOU GO HOME, CALL YOUR DOCTOR FOR: Any increase in bruising or tenderness from the procedure site Any redness, pus, or other signs of infection at the site A temperature above 100.5 Severe pain at the site DIAL 911 AND RETURN TO THE HOSPITAL FOR: Any bleeding from the procedure site. The site may be bruised or tender, but it should not be bleeding at any time. If your site begins to bleed, hold firm pressure on it and dial 911 to return to the hospital Any increase in swelling at the procedure site. An increase in swelling could mean the area is bleeding under the skin. Hold firm pressure to the site and dial 911 to return to the hospital Document Released: 08/25/2006 Document Revised: 08/11/2013 Document Reviewed: 08/26/2014 ExitCare Patient Information 2015 [employer]. This information is not intended to replace advicegiven to you by your health care provider. Make sure you discuss any questions you have with your health care provider. Moderate Conscious Sedation, Adult, Care After These instructions provide you with information about caring for yourself after your procedure. Your health care provider may also give you more specific instructions. Your treatment has been plannedaccording to current medical practices, but problems sometimes occur. Call your health care provider if you have any problems or questions after your procedure. What can I expect after the procedure? After your procedure, it is common: To feel sleepy for several hours. To feel clumsy and have poor balance for several hours. To have poor judgment for several hours. To vomit if you eat too soon. Follow these instructions at home: For at least 24 hours after the procedure: Do not: ? Participate in activities where you could fall or become injured. ? Drive. ? Use heavy machinery. ? Drink alcohol. ? Take sleeping pills or medicines that cause drowsiness. ? Make important decisions or sign legal documents. ? Take care of children on your own. Rest. Eating and drinking Follow the diet recommended by your health care provider. If you vomit: ? Drink water, juice, or soup when you can drink without vomiting. ? Make sure you have little or no nausea before eating solid foods. General instructions Have a responsible adult stay with you until you are awake and alert. Take rzea-ipd-vcliyls and prescription medicines only as told by your health care provider. If you smoke, do not smoke without supervision. Keep all follow-up visits as told by your health care provider. This is important. Contact a health care provider if: You keep feeling nauseous or you keep vomiting. You feel light-headed. You develop a rash. You have a fever. Get help right away if: You have trouble breathing. This information is not intended to replace advice given to you by your health care provider. Make sure you discuss any questions you have with your health care provider. Document Released: 06/15/2014 Document Revised: 08/07/2018 Document Reviewed: 12/14/2016 [employer] Patient Education 2020 WhenSoon. Additional Information VACCINATE! IT SAVES LIVES! Members of the community who have not yet received the COVID-19 vaccine and would like to receive it can visit one of [facility] vaccine clinics. There are many vaccine clinic locations within the [facility]. For locations and available times, please visit [email or web address].[place].gov/. It is important to note that some COVID mobile vaccine clinics are held outdoors and may be canceled in rainy or stormy conditions. To learn more about pediatric vaccinations (ages 5-11), we invite you to visit the [facility] webpage. [email or web address]/[email or web address] [email or web address] learn more about the COVID-19 vaccine, we invite you to visit the CDC website for a list of frequently asked questions.https://www.cdc.gov/coronavirus/2019-ncov/vaccines/faq.html [facility] Patient Portal Access Instructions: Stay connected with your healthcare team and access your personal medical information anytime with the [facility] Patient Portal. Please follow the directions below to create your [facility] account: 1.Access the email account you provided upon registration to the hospital/physician office.2.Look for an invitation email from [facility].3.Open the email and access the invitation link: AcceptInvitation to [employer].4.Fill in the required loera to create your account. To access your account, visit [email or web address]. Click the blue button labeled Access Patient Portal and then log in with the username and password that you created in the steps above. You will be able to view your test results, lab results, a summary of your visits, upcoming appointments and more. There is also a convenient messaging option where you can send secure messages to your p [employer]. In addition, you will have the ability to download any documents or summaries to your computer and/or send the information securely to a physician. Remember that your healthcare information is confidential, so carefully consider who you will allowto register on the [employer] Patient Portal for access to your information. You can also access the [employer] Patient Portal on the [facility] [employer] alistair. Simply click on Patient Portal and then log into your account. If you would like to receive a full copy of your medical records, please contact the [facility] Medical Records Department by calling [phone], Friday through Friday between 8 a.m. and 4:30 p.m. HOW TO SAFELY DISPOSE OF PRESCRIPTION MEDICATIONS Please use one of the following methods to safely dispose of your unused medications. 1.Use a drug disposal kit: the drug disposal pouch allows you to safely discard your old and unuseddrugs. Ask your nurse to give you one when you are discharged.2.Visit a local take-back location: Many local pharmacies and police departments have programs that collect old and unwanted prescriptiondrugs. Call your local pharmacy or go to http://bit.ly/7A7Re4v to find one close to you.3.Make use of household items: Use cat litter or old coffee grounds to dispose medications if other options arenot available. Mix your drugs with these household products, seal them in an airtight container andthrow it into the garbage. Call [facility]: [phone] to be sure your drugs can be disposed of in this way. Some medicines may require a different approach.4.Never flush your medications down the toilet. IF YOU HAVE BEEN PRESCRIBED AN OPIOID FOR PAIN If you have been prescribed an opioid (such as hydrocodone, oxycodone or morphine), it is critical to understand the possible side effects and risks of opioid pain medications. Even when taken as directed, opioids can have several side effects including: Tolerance, meaning you might need to take more of a medication for the same pain relief. Nausea, vomiting and/or constipation. Sleepiness, dizziness, dry mouth, confusion, depression or itching. Physical dependence, meaning you have withdrawal symptoms when a medication is stopped, can develop within a few days. KNOW YOUR RESPONSIBILITIES It is important to know exactly how much and how often to take the opioid pain medications you are prescribed. Never take opioids in higher amounts or more often than prescribed. Do not combine opioids with alcohol or other drugs that cause drowsiness, such as benzodiazepines, also known as benzos, including diazepam and alprazolam, muscle relaxants or sleep aids. Never sell or share prescription opioids. This is illegal. Store opioids in a secure place and out of reach of others (including children, family, friends and visitors). The last page of this document has been signed and retained as a CHART COPY. Signatures Patient Education Materials 3- Heart Cath/PCI radial (06/2018) (CUSTOM) Moderate Conscious Sedation, Adult, Care After Medication Leaflets My discharge plan and instructions have been reviewed and explained to me and I,RUDDY RICH understand my current condition and have read and understand these discharge instructions. I have received a written copy of the plan/instructions. If I have questions, I am aware that I should contact my doctor. 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 Signature: Date/Time: Relationship to Patient: Witness Name/Signature: Date/Time: [id number] Discharge summary Date of Service 09/04/2023 Discharge Diagnosis mild cad Hospital Course 68 y/o man with frequent PVCs and positive NST (mid-distal inferior ischemia), cardiomyopathy LVEF 40%, hx tachy medicated CM, admitted briefly for [facility]. Patient underwent left heart catheterization with R radial artery access, coronary angiography showed mild 40% mid LAD lesion, otherwise no significant disease, no intervention was performed, no immediate complication, access site was closed by quickclot. Patient is to be discharged home later today. Apixaban and atorvastatin. Allergies NKA Procedures [facility] Dr Aviles Consults No qualifying data available. Objective Vitals and Measurements T: 36.4 C (Oral) HR: 67 RR: 18 BP: 185/72 SpO2: 96% HT: 182.9 cm WT: 103.2 kg Weight Dosing Weight: 103.2 kg (09/04/23) Code Status No qualifying data available. Admission Date 09/04/2023 Discharge Date 09/04/2023 Medications Unchanged apixaban (Eliquis 5 mg oral tablet)1 tab(s) by mouth two (2) times a day. Refills: 3. atorvastatin (atorvastatin 40 mg oral tablet)1 tab(s) by mouth every day. Refills: 2. losartan (losartan 50 mg oral tablet)1 tab(s) by mouth once a day. Refills: 3. metoprolol (metoprolol succinate 25 mg oral TABLET extended release)0.5 tab(s) by mouth once a day.Do not crush or chew (controlled release). Refills: 1. Discontinued aspirin (aspirin 81 mg oral delayed release tablet)1 tab(s) by mouth once a day. Refills: 2. Follow Up Follow Up with DALIA HORVATH MD When 10/09/2023 01:30 PM EST Where: [address] [facility] [place] [address]- [phone] Follow Up Appointments No qualifying data available. Follow Up Labs/Studies Discharge Labs No Follow-up Labs Discharge Studies No Follow-up Studies Discharge Diet Discharge Diet - Ordered -- No changes were made to your diet during your hospital stay. Please resume your pre hospitalization diet on discharge., 09/04/23 12:29:00 EST Discharge Activity Discharge Activity - Ordered -- NO activity restrictions, 09/04/23 12:29:00 EST Readmission Risk/Palliative Score No qualifying data available. Digitally Signed by MIKY JOHNSON MD on 09/04/2023 12:33 PM Digitally Signed by TAYE AVILES MD [id number] Note* Exam Date Time Procedure Performing Provider Status 09/04/23 11:51 AM Cardiac Catheterization -CV Auth (Verified) [facility] Evaluation + Plan note Future Appointments Appointment Date:10/09/2023 01:30:00 PM Scheduled Provider: Location:[facility] Appointment Type:CV OV Hospital Follow Up Appointment Date:11/24/2023 12:45:00 PM Scheduled Provider: Location:[facility] Appointment Type:CV OV Future Scheduled Tests Laboratory* Thyroid Stimulating Hormone 02/28/23 * A1C Hemoglobin 02/28/23 * Complete Blood Count 02/28/23 * Lipid Profile 02/28/23 * Complete Metabolic Panel 02/28/23 Radiology* NM Myocardial Spect Rest/Stress 08/20/23 [facility] evaluation + Plan note Future Appointments Appointment Date:05/18/2024 07:30:00 AM Scheduled Provider: Location:Heart Lab Appointment Type:CV Procedure - Heart Lab/Hybrid OR Appointment Date:07/14/2024 01:00:00 PM Scheduled Provider: Location:[facility] Appointment Type:CV OV Future Scheduled Tests Radiology* NM Myocardial Spect Rest/Stress 08/20/23 [facility] evaluation + Plan note Future Appointments Appointment Date:07/08/2024 01:00:00 PM Scheduled Provider:STEVE RAYA Location:[facility] Appointment Type:CV OV Appointment Date:07/14/2024 01:00:00 PM Scheduled Provider:SVETA HORVATH Location:[facility] Appointment Type:CV OV Future Scheduled Tests Laboratory* Basic Metabolic Panel 07/01/24 * Complete Blood Count 07/01/24 Radiology* NM Myocardial Spect Rest/Stress 08/20/23 [facility] evaluation + Plan note Future Appointments Appointment Date:02/14/2025 08:00:00 AM Scheduled Provider: Location:Heart Lab Appointment Type:EP [facility] Appointment Date:04/06/2025 03:30:00 PM Scheduled Provider:SVETA HORVATH Location:[facility] Appointment Type:CV OV Appointment Date:05/12/2025 10:15:00 AM Scheduled Provider:TRISHA SINGH Location:[facility] Appointment Type:CV OV Future Scheduled Tests Laboratory* Basic Metabolic Panel 07/01/24 * Complete Blood Count 07/01/24 [facility] Evaluation + Plan note Future Appointments Appointment Date:04/06/2025 03:30:00 PM Scheduled Provider:SVETA HORVATH Location:[facility] Appointment Type:CV OV Appointment Date:05/12/2025 10:15:00 AM Scheduled Provider:TRISHA SINGH Location:[facility] Appointment Type:CV OV Future Scheduled Tests Laboratory* Basic Metabolic Panel 07/01/24 * Complete Blood Count 07/01/24 [facility] Evaluation noteNo assessment information available [facility] Work Phone: Hospital course Narrative No data available for this section [facility] Hospital Discharge instructions No data available for this section [facility] Progress note No data available for this section [facility] Reason for referral (narrative)No reason for referral [facility] Work Phone: Summary Purpose Family History No Family History Records Found No data available for this section No data available for this section No data available for this section No data available for this section No Family History Records Found No data available for this section No data available for this section No data available for this section No data available for this section No Family History Records FoundNo Family History Records FoundNo Family History Records Found Advance Directives No Advanced Directives Records FoundNo Advanced Directives Records FoundNo Advanced Directives Records FoundNo Advanced Directives Records FoundNo Advanced Directives Records Found Chief Complaint and Reason for Visit Chief Complaint Admit Date PRE-OP FOR WASC December 17, 2024 10: 58am Additional Source Comments (unrecognized sect ion and content) No Status Records FoundNo Status Records FoundNo Status Records FoundNo Status Records FoundNo Status Records Found INFORMATION SOURCE (unrecogn ized section and content) DATE CREATED AUTHOR 07/21/2020 [facility] DATE CREATED AUTHOR AUTHOR'S ORGANIZ ATION 05/13/2024 [facility] ([place]) DATE CREATED AUTHOR AUTHOR'S ORGANIZ ATION 02/21/2025 [facility] DATE CREATED AUTHOR AUTHOR'S ORGANIZ ATION 05/26/2025 [facility] DATE CREATED AUTHOR AUTHOR'S ORGANIZ ATION 05/27/2025 [facility] Patient Care team informatio n (unrecognized section and content) Team Status: Active Member Role Status Dates Dr. Justice Cardenas MD Primary Care Provider Active Team Status: Inactive Member Role Status Dates Dr. Justice Cardenas MD Primary Care Provider Active Start: December 17, 2024 End: December 17, 2024 Dr. Robin Barrett DO Attending Provider Active Start: December 17, 2024 End: December 17, 2024 Dr. Robin Barrett DO Referring Provider Active Start: December 17, 2024 End: December 17, 2024 Goals (unrecognized section and content) Goals may be documented in a n alternate section FOR RECORDS PERTAINING TO PATIENTS WHO ARE OR HAVE BEEN ENROLLED IN A CHEMICAL DEPENDENCY/SUBSTANCEABUSE PROGRAM, SOME INFORMATION MAY BE OMITTED. This clinical summary was aggregated from multiple sources. Caution should be exercised in using it in the provision of clinical care. This summary normalizes information from multiple sources, and as a consequence, information in this document may materially change the coding, format and clinical context of patient data. In addition, data may be omitted in some cases. CLINICAL DECISIONS SHOULD BE BASED ON THE PRIMARY CLINICAL RECORDS. [employer] provides no warranty or guarantee of the accuracy or completeness of information in this document.
[2025-05-30] MEDS: LR 1,000 ML - BOLUS PREOP 999 ML IV (06:21)
[2025-05-30] MEDS: Magnesium 2 GM for ERAS IV (06:22)
[2025-05-30] MEDS: Lactated Ringers 1,000 ML 15 ML IV (06:22)
--- NOTE | 2025-05-30 06:52 | PCM.PRE.AN2 ---
ASA Classification* ASA Classification ASA Classification: 3 Assessment & Plan Anesthesia* Anesthesia Assessment Anesthesia Assessment: Discussed sedation and/or anesthesia options, risks, benefits, and alternatives with patient/parents/legal guardian/POA. Questions invited. The patient/parents/legal guardian/POA seems to understand and agrees to proceed with anesthesia plan. Reviewed the physical assessment, medical history, allergy history and patient home medications list prior to surgery/procedure/anesthetic and documented any changes. Performed airway and anesthesia risk assessments. Anesthesia Type Anesthesia Type: General and Block Anesthesia Focused Assessment* Temperature: 98.1 F Pulse Rate: 74 Blood Pressure: 131/81 Respiratory Rate: 16 Pulse Ox: 99 Airway Assessment Mouth opens: >3 cm Mallampati Score: II Labs Anesthesia Preop lab: CBC WBC, (4.4-11.0) 9.0 K/mm3 12/17/24, 11:02 RBC, (4.6-6.2) 4.54 M/mm3 L 12/17/24, 11:02 Hgb, (13.0-16.5) 14.6 g/dL 12/17/24, 11:02 Hct, (40-54) 44.6 % 12/17/24, 11:02 Plt Count, (150-450) 208 K/mm3 12/17/24, 11:02 CHEMISTRY Potassium, (3.3-5.1) 4.5 mmol/L 12/17/24, 11:02 Sodium, (133-145) 141 mmol/L 12/17/24, 11:02 BUN, (4-19) 26 mg/dL H 12/17/24, 11:02 Creatinine, (0.70-1.20) 1.02 mg/dL 12/17/24, 11:02 Glucose, (70-99) 98 mg/dL 12/17/24, 11:02 COAG PT, (11.7-14.9) 13.9 SECONDS 04/10/24, 18:30 Pre-Assessment Diagnosis/Proposed Procedure Planned Operative Procedure(s): (L) LEFT REVERSE TOTAL SHOULDER ARTHROPLASTY, ERAS Anesthesia History Anesthesia History - lab tester: Anesthesia History - lab tester Hx Hospitalization No 05/03/25 09:39 Any Problems With Anesthesia No 05/03/25 09:39 Cholinesterase deficiency No 05/03/25 09:39 You/Your Family Experience No 05/03/25 09:39 fever (hyperthermia) with Relationship Recent Exposure to Contagious No 05/30/25 06:03 Disease Does patient have nerve No 05/03/25 09:39 stimulator Patient instructed to have device shut off --Does patient have Pacemaker No 05/30/25 06:08 or ICD? When Was Last Pacemaker Check QUESTION #4 FULL TEXT: You/Your Family Experience fever (hyperthermia) with Anesthesia Last Oral Intake Last Oral intake: Last Oral Intake NPO since 03:30 05/30/25 06:08 Meds taken in AM with sips of Yes 05/30/25 06:08 water? Meds patient instructed to take am of surgery PONV PONV - lab tester: PONV - lab tester Female No 05/03/25 09:39 HX of Motion Sickness No 05/03/25 09:39 HX of N/V After Surgery No 05/03/25 09:39 Non-Smoker Yes 05/03/25 09:39 Duration of Surgery greater Yes 05/03/25 09:39 than 60 minutes Number of Risk Factors 2 05/03/25 09:39 PONV Score Moderate Risk 05/03/25 09:39 Height & Weight Height & Weight: Anesthesia: Height & Weight Height 5 ft 11 in 05/30/25 06:08 Weight: 99.79 kg 05/30/25 06:08 Body Mass Index (BMI) 30.7 05/30/25 06:08 Respiratory Assessment Respiratory Assessment - lab tester: Respiratory Tract Infection Hx - lab tester Hx Respiratory Tract Infection No 05/03/25 09:39 STOP Sleep Apnea STOP Sleep Apnea - lab tester: STOP Sleep Apnea - lab tester Hx Hypertension Yes: CONTROLLED WITH MEDS 05/03/25 09:39 Hx Sleep Apnea Yes 05/03/25 09:39 CPAP Yes 05/03/25 09:39 BIPAP No 05/03/25 09:39 Do you snore loudly (louder than talking or can be heard Do you often feel tired/ fatigued/ sleepy during daytime? Has anyone observed you stop breathing during sleep? STOP Results Positive 05/03/25 09:39 QUESTION #5 FULL TEXT : Do you snore loudly (louder than talking or can be heard through closed doors)? 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 Specify any problems Hx of Preganancy in last 3 N/A 05/03/25 09:39 Months Nurse Filling Out Transfusion VCHRISTIN 05/03/25 09:39 & Questions: Date: 05/03/25 05/03/25 09:39 Time: 09:40 05/03/25 09:39 Patient unable to answer at this time (ie. confused, unrespo /Reproduction History /Reproductive History - lab tester: /Reproductive Hx- lab tester Hx Now No 05/03/25 09:39 Gestational Age (in weeks): EDC: Hx Hx Para Hx Section SAB No 05/03/25 09:39 Active Medications Active Medications: Current Medications Generic Name Dose Route Start Last Admin Trade Name Freq PRN Reason Stop Dose Admin Acetaminophen 1,000 mg 05/30/25 07:30 05/30/25 06:14 Acetaminophen 500 Mg Tablet PO 05/30/25 07:31 1,000 mg PREOP ONE Administration Celecoxib 400 mg 05/30/25 07:30 05/30/25 06:14 Celecoxib 200 Mg Capsule PO 05/30/25 07:31 400 mg PREOP ONE Administration Gabapentin 600 mg 05/30/25 07:30 05/30/25 06:14 Gabapentin 600 Mg Tablet PO 05/30/25 07:31 600 mg PREOP ONE Administration Lactated Ringer's 1,000 mls @ 999 mls/hr 05/30/25 07:30 05/30/25 06:21 IV 05/30/25 08:30 999 mls/hr .Q1H1M IZZY Administration Cefazolin Sodium 2 gm/ Sodium 110 mls @ 150 mls/hr 05/30/25 07:30 Chloride IV 05/30/25 08:13 INTRAOP ONE Tranexamic Acid 1,000 mg/ 110 mls @ 660 mls/hr 05/30/25 07:30 Sodium Chloride IV 05/30/25 07:39 INTRAOP ONE Lactated Ringer's 1,000 mls @ 999 mls/hr 05/30/25 07:30 IV 05/30/25 08:30 .Q1H1M IZZY Lactated Ringer's 1,000 mls @ 125 mls/hr 05/30/25 07:30 IV 05/30/25 15:29 .Q8H IZZY Magnesium Sulfate 2 gm/ 104 mls @ 208 mls/hr 05/30/25 07:30 05/30/25 06:22 Dextrose IV 05/30/25 07:59 208 mls/hr PREOP ONE Administration Lactated Ringer's 1,000 mls @ 15 mls/hr 05/30/25 05:30 05/30/25 06:22 IV 15 mls/hr .Q48H IZZY Administration Insulin Human Lispro 1 - 6 unit 05/30/25 07:30 Insulin Lispro 100 Unit/Ml Insuln.Pen SC Q4H PRN PRN BG>/= 180, SEE PROTOCOL Protocol PFSH Medical History Alcohol use CPAP (continuous positive airway pressure) dependence Non-smoker Shortness of breath on exertion History of pain when walking History of edema History of echocardiogram History of stress test Hypertension Cardiology follow-up encounter Fractured sternum Hx of developmental dysplasia of the hip History of irregular heartbeat History of atrial fibrillation Home Medications ?Medication ?Instructions ?Recorded ?Last Taken ?Type aspirin 81 mg tablet,delayed 81 mg PO DAILY 01/23/24 05/25/25 History release atorvastatin 40 mg tablet 40 mg PO QHS 01/23/24 05/30/25 03:30 History losartan 50 mg tablet 50 mg PO DAILY 01/23/24 05/30/25 03:30 History tramadol 50 mg tablet 50 - 100 mg PO Q12H PRN PRN pain 05/30/25 05/29/25 History Allergy/AdvReac Type Severity Reaction Status Date / Time No Known Allergies Allergy Verified 05/30/25 06:02 Surgical History Hx of surgical procedure Hx of surgical procedure History of tonsillectomy History of cardiac catheterization History of cardiac radiofrequency ablation Social History Smoking Status: Never smoker Review of Systems (Anesthesia) ROS Narrative System reviewed and no additional complaints, except as documented.
[2025-05-30] MEDS: Midazolam 2 MG/2 ML Syringe IV (07:29)
[2025-05-30] MEDS: Cefazolin 1 GM/5 ML Vial 2 GM IV (07:32)
[2025-05-30] MEDS: Lidocaine 1% (5 ml sdv) 5 ML Vial IV (07:35)
[2025-05-30] MEDS: fentaNYL 100 MCG/2 ML Ampul 50 MCG IV (07:35)
[2025-05-30] MEDS: TRANEXAMIC ACID 1,000 MG/10 ML ML 1000 MG IV (07:40)
[2025-05-30] MEDS: Lactated Ringers 2,000 ML 2000 ML IV (07:58)
[2025-05-30] MEDS: LR 1,000 ML - BOLUS POSTOP 999 ML IV (09:00)
[2025-05-30] MEDS: LR 1,000 ML - 125 ML/HR (POST BOLUS) POST OP IV (09:00)
--- NOTE | 2025-05-30 09:01 | RAD_ITS ---
PROCEDURE: SHOULDER MIN 2 VIEWS 05/30/2025 REASON FOR EXAM: POST OP Status post left shoulder replacement. TECHNIQUE: Procedure Code: RADSH Modality: DX Procedure: SHOULDER MIN 2 VIEWS Laterality: Left shoulder COMPARISON: None FINDINGS: The patient is status post left shoulder reverse replacement. There is good alignment. Postoperative soft tissue changes. Findings suggestive of left basilar atelectasis. RAD/Shoulder min 2 Views IMPRESSION: Status post left reverse shoulder replacement. There is good alignment. Postoperative soft tissue changes. Increased markings at the left lung base suggestive of left basilar atelectasis . Reading Location: [facility]
--- NOTE | 2025-05-30 09:04 | OP.PCM_ITS ---
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 [employer] Manager: Adela Whalen Tasks completed by news assistant: Opening & closing, Implanting device, Hemostasis: Electrocautery and Retracting Type of Anesthesia: General/Regional RN Documented Start/Stop Times: Operation Date: 05/30/25 07:30 Case Time Into Pre-Op 05/30/25 05:25 Anesthesia Start 05/30/25 07:29 Into Room 05/30/25 07:29 Out of Pre-Op 05/30/25 07:30 Procedure Start 05/30/25 07:57 Procedure End 05/30/25 09:01 Procedure Start Time: 07:57 Procedure Stop Time: 09:01 Select all DRAINS/GRAFTS/IMPLANTS that apply: Implanted device Implanted device details: Tornier Aequalis PerFORM+ reversed baseplate 29 mm diameter +6 mm lateralization, standard glenosphere cobalt chrome 42 mm diameter, Tornier perform inlay stem size #3, + 3 mm retentive size number 3 42 mm diameter polyethylene insert, short central post and peripheral screws x4. Estimated Blood Loss: 100 cc Specimen collected: No Description of surgery: Patient arrived to [facility] morning of the procedure and was greeted by the same day surgery staff. Prior to his procedure, I greeted the patient in the preoperative holding area I identified the patient by name, record number, and date of . Informed consent was confirmed. The operative extremity was marked. All questions were answered to patient satisfaction. An interscalene block was administered prior to procedure by anesthesia staff for postoperative and intraoperative analgesia. At time of his procedure, patient was brought to the operative suite and positioned supine on a standard table with a beachchair attachment. General anesthesia was induced after all bony prominences were well-padded. Endotracheal tube was placed. After adequate anesthesia and securing the tube, we prepared the patient to be positioned in the beachchair position. A well- padded head chef was applied. The nonoperative extremity was placed in a well arm reece. He was then brought into the beachchair position after we confirmed an appropriate blood pressure. We then spun the bed 45 degrees. The operative extremity was then prepared. In the butterfly wing of the bed was removed and a well-padded torso strap was applied to secure the patient to the bed. The op erative extremity was now free. We then prepped and draped the left upper extremity in normal, sterile orthopedic fashion. We then performed a timeout with all parties in attendance in agreement with the side, site, and operation be performed. 2 g Ancef was administered prior to incision by anesthesia staff, as well as 1 g TXA IV. No concerns were voiced and we elected to proceed. I first marked a standard deltopectoral incision just lateral to the coracoid process in line with the long axis of the humerus. Skin was sharply incised with 10 blade scalpel. I then dissected bluntly through the subcutaneous layers and found the fat stripe between the deltoid and pectoralis major. The cephalic vein was then identified and protected. It was retracted laterally with the deltoid. I then bluntly dissected underneath the deltoid with a Calixto elevator. Blair retractor was placed. The upper 1 cm of the pectoralis major was released. I then identified the long head of the biceps tendon in the intertubercular groove. This was tenodesed in situ with #2 FiberWire. I then amputated the biceps proximal to the tenodesis site and followed the tendon to the supraglenoid tubercle where it was amputated. This identified the lesser and greater tuberosities. The supraspinatus was completely torn and retracted with an exposed greater tuberosity. I then performed a subscapularis peel while rotating the humerus externally. I tagged the subscapularis for possible repair later with a tagging suture. Humeral head was then dislocated anteriorly. Appropriate access to the humeral head was confirmed. I then subluxed the humeral head posteriorly with a Fukuda retractor placed around the posterior lip of the glenoid. Inferior capsule was tension. I was able to palpate the axillary nerve. Inferior capsule was then released to the 4 o'clock position of the glenoid face. 3 sided subscapularis release was performed with Bovie cautery. I then remove the Fukuda retractor and redislocated the shoulder anteriorly. I then made a anatomic neck cut of the cartilaginous surface of the humeral head. Sizing plate for a size # 3 stem was utilized to determine appropriate reaming size. A central pin was placed engaging the lateral cortex of the humerus. A size # 3 reamer was used to ream the humeral metaphysis and prepare for the inlay stem. A canal finding reamer was utilized prior to sequential broaching to a size # 3 short stem with excellent rotational and axial purchase in the humerus. I remove the broach handle left the size # [address] I then subluxed the humerus posterior to the glenoid. I then placed retractors around the posterior and anterior glenoid to expose the glenoid. Glenoid labrum was removed with Bovie cautery protecting the axillary nerve. We then used the standard 29 mm guide from [place] to position our centering pin, exiting approximately 25 mm from the joint surface along the anterior scapula. Guide was removed and pin was analyzed and compared to preoperative planning. It appeared to be in appropriate position. The Nautilus shaped reamer was then placed over top of the centering pin. I reamed a flat surface of the glenoid the stem cancellous bleeding bone on the inferior margin of the prepared glenoid face. We then removed the reamer and used the cannulated drill for the short central post. Post and baseplate was assembled on the back table. We then inserted the baseplate and central post the assembled baseplate to an appropriate depth with good press-fit purchase. A Nancy was used to confirm depth. Screws then were placed in the peripheral holes with good purchase. The baseplate had excellent purchase and the entire scapula would rotate with rotation of the baseplate. We then impacted the 42 mm glenosphere with a standard eccentricity and tightened the locking screw mechanism. We then removed retractors and turned our attention back to the humerus. I placed a standard and +3 millimeters retentive polyethylene insert. There was excellent range of motion and stability in all planes of motion with probable tension on the deltoid and strap muscles with the +3 mm polyethylene insert. We selected this as our final size. We removed trials from the humerus after final dislocation. I copiously irrigated the canal. Broach was placed on hand and then impacted to an appropriate depth. Final + 3 mm retentive polyethylene insert was placed. Final reduction was then performed. The subscapularis was then identified with a tagging suture. Repair would have been likely under undue tension and likely failed. I elected to not perform a subscapularis repair. We then copiously irrigated the wound with sterile Betadine and normal saline solution. We reapproximated the interval with 0 Vicryl suture. Subcutaneous layers were reapproximated with 2 -0 Vicryl suture. Skin was finally running V- Loc 3-0 Monocryl suture and Dermabond. A sterile silver Mepilex dressing was applied. Patient was then placed in an ultra sling. Patient tolerated procedure well without complication. He was positioned back in the supine position extubated in the operative suite. He was transferred to the rtangier and subsequently to PACU in stable condition. Need for skilled diagnostic assistant: Adela Whalen PA-C was critical to the outcome of the case. During the course of the procedure the physician diagnostic assistant played a vital role. Her intimate knowledge of my steps in the procedure aided in safe and expedient completion of the procedure. The PA played a vital role in positioning particularly in obtaining the appropriate positioning. The PA was also vital in the retraction of soft tissues during the exposure and protecting vital structures. The PA was also vital and protecting soft tissues during times of bony cuts. She also played a vital role in closure with my direct supervision. The PA was also important during reduction and dislocation of the joint and trials intraoperatively. Intraoperative medications: 2 g Ancef IV, 1 g TXA IV x2 Post Operative Plan: Weightbearing: Nonweightbearing left upper extremity, okay for pendulums. Range of motion of wrist elbow and hand as tolerated. Anticipate discharge home today if same-day surgery criteria is met. Antibiotics: 2 g Ancef IV prior to incision, dose of Ancef prior to discharge DVT Prophylaxis: Aspirin enteric-coated 81 mg twice daily starting tomorrow Mckinney: None Dressing: Maintain silver dressing x5 days. Okay to shower dressing on started on day 4 X-Rays: 2 weeks postop in the office Pain Medication: Oxycodone Rx upon discharge Follow-up: 2 weeks post-operatively with me in the office Surgical Findings: Massive left rotator cuff tear. Stable left shoulder following final reduction Complications Complications: No Admit VTE Documentation VTE Present on Admission: No VTE Mechan Device Prophylaxis: SCD's and Knee High TINA Hose VTE Pharm Prophylaxis ordered?: Yes
--- NOTE | 2025-05-30 09:15 | PCM.POST.ANE ---
Anesthesia: Postop Eval I Current Vital Signs Temperature: 97 F Pulse Rate: 80 Blood Pressure: 139/67 Respiratory Rate: 16 Pulse Ox: 100 Oxygen Delivery Method: Simple Mask Oxygen Flow Rate (L/min): 6 Assessment Airway patent: Yes Spontaneous unlabored respirations: Yes Mental status: Awake and Calm nausea: No Vomiting: No Anesthesia Complication: No Fluid Hydration Crystalloid volume administer (ml): 2,000 Total IV fluid infused: 2,000 Progress Note Anesthesia document: Postop Eval 1 completed: Yes
--- NOTE | 2025-05-30 10:12 | POSTOPAN2_ITS ---
Anesthesia Postop Eval I Sum Postop Eval Completion status Anesthesia document: Postop Eval 1 completed: Yes Anesthesia Postop Eval I Summary Anesthesia Postop Eval I Summary: Anesthesia Postop Eval I: Assessment Summary Airway patent Yes 05/30/25 09:16 SENIOR [email or web address] Spontaneous unlabored Yes 05/30/25 09:16 SENIOR [email or web address] [email or web address] respirations Mental status Awake,Calm 05/30/25 09:16 SENIOR [email or web address] nausea No 05/30/25 09:16 SENIOR [email or web address] Vomiting No 05/30/25 09:16 SENIOR CONTROLS ENGINEERMACEY Anesthesia Postop Eval I: Fluid Summary Crystalloid volume administer 2,000 05/30/25 09:16 SENIOR [email or web address] [email or web address] (ml) Colloids volume administered ( ml) Blood Product volume administered (ml) Total IV fluid infused 2,000 05/30/25 09:16 SENIOR [email or web address] [email or web address] Anesthesia Postop Eval I: Summary Notes Anesthesia Complication No 05/30/25 09:16 SENIOR CONTROLS ENGINEERMACEY Anesthesia Complication Comment: Post-operative progress note Anesthesia: Postop Eval II Evaluation Mental status: Awake Pain Level: 0 nausea: No Vomiting: No
--- NOTE | 2025-05-30 10:12 | PCM.POSTANE2 ---
Anesthesia Postop Eval I Sum Postop Eval Completion status Anesthesia document: Postop Eval 1 completed: Yes Anesthesia Postop Eval I Summary Anesthesia Postop Eval I Summary: Anesthesia Postop Eval I: Assessment Summary Airway patent Yes 05/30/25 09:16 [email or web address] Spontaneous unlabored Yes 05/30/25 09:16 [email or web address] respirations Mental status Awake,Calm 05/30/25 09:16 [email or web address] nausea No 05/30/25 09:16 [email or web address] Vomiting No 05/30/25 09:16 SPORTS RECRUITERMACEY Anesthesia Postop Eval I: Fluid Summary Crystalloid volume administer 2,000 05/30/25 09:16 [email or web address] (ml) Colloids volume administered ( ml) Blood Product volume administered (ml) Total IV fluid infused 2,000 05/30/25 09:16 [email or web address] Anesthesia Postop Eval I: Summary Notes Anesthesia Complication No 05/30/25 09:16 SPORTS RECRUITERMACEY Anesthesia Complication Comment: Post-operative progress note Anesthesia: Postop Eval II Evaluation Mental status: Awake Pain Level: 0 nausea: No Vomiting: No
[2025-05-30] MEDS: Cefazolin 1 GM/50 ML BAG IV (11:02)
== END 2025-05-30 12:59 | disposition home or self-care (01) ==
LOC: SDC 05:20 → AC 05:22
PROVIDERS: PCP Student in an Organized Health Care Education/Training Program; Referring Provider Student in an Organized Health Care Education/Training Program; Visit Provider Student in an Organized Health Care Education/Training Program
PROC: (CPT 23472; principal; 2025-05-30 07:00)
DX: S46.012A Strain of muscle(s) and tendon(s) of the rotator cuff of left shoulder, initial encounter (principal); M17.11 Unilateral primary osteoarthritis, right knee; M19.012 Primary osteoarthritis, left shoulder; G47.30 Sleep apnea, unspecified; I10 Essential (primary) hypertension; E78.00 Pure hypercholesterolemia, unspecified; Z79.899 Other long term (current) drug therapy; Z79.82 Long term (current) use of aspirin; W06.XXXA Fall from bed, initial encounter
CPT/HCPCS: 23472; 64415; 01638; 73030; 82962; 97166; C1776; J2405